=== PATIENT | male | born 1960 | race Caucasian/White ===

== ENCOUNTER 2017-02-05 09:26 | Observation (INO) ==
[2017-02-05] MEDS ORDERED: Aspirin 81 MG TAB.CHEW PO ONE (09:34)
--- NOTE | 2017-02-05 09:37 | Emergency Department Note ---
Disposition Clinical Impression: Chest pain Qualifiers: Chest pain type: unspecified Qualified Code(s): R07.9 - Chest pain, unspecified Hypertension Qualifiers: Hypertension type: essential hypertension Qualified Code(s): I10 - Essential ( primary) hypertension Disposition: Admitted As Inpatient Condition: Fair Time of Disposition: 10:55 Chest Pain HPI - General Chief Complaint: ED Chest Pain Stated Complaint: CP Time Seen by Provider: 02/05/17 09:34 Source: patient Mode of arrival: ambulatory Limitations: no limitations Vital Signs Reviewed: Yes Nursing Notes Reviewed: Yes - History of Present Illness HPI Narrative: 56-year-old with a history of stents 2 about 10 years ago in [place] who comes in with chest discomfort that he's had for about a month. States when he exerts himself the chest pain comes on and then when he rests it gets better. Patient presents now for evaluation. The patient has a history of hypertension but states he does not take his medications because it makes him feel funny. States he has some dizziness occasionally. On arrival his blood pressure is 227/ 144. Pt complaint: chest pain Onset (ago): month(s) Duration: intermittent Onset: during exertion (1) Pain Location: substernal, left chest Severity scale (1-10): 9 Quality: tightness, aching, heaviness Pain Radiation: none Improves with: rest Worsens with: exertion Associated symptoms: Denies: nausea, vomiting, syncope Treatments prior to arrival chest pain: none - Related Data Home Medications Medication Instructions Recorded Confirmed Aspirin [Ecotrin] 325 mg PO DAILY 02/05/17 02/05/17 Levothyroxine [Synthroid] 175 mcg PO DAILY 02/05/17 02/05/17 Lisinopril-HCTZ 20-12.5 [Prinzide 2 tab PO DAILY 02/05/17 02/05/17 20-12.5] Metoprolol [Lopressor] 50 mg PO DAILY 02/05/17 02/05/17 Allergies Allergy/AdvReac Type Severity Reaction Status Date / Time No Known Allergies Allergy Verified 02/05/17 09:27 All systems ED: reviewed and negative except as stated. Constitutional: Denies: fever, chills, weakness, weight change Eyes: Denies: eye pain, eye discharge, vision change ENT ED: Denies: ear pain, throat pain, dental pain, hearing loss, epistaxis, congestion, dysphagia Cardiovascular: Reports: chest pain. Denies: palpitations, dyspnea on exertion , edema, syncope Respiratory: Denies: cough, dyspnea, wheezes, hemoptysis, stridor Gastrointestinal: Denies: abdominal pain, nausea, vomiting, diarrhea, constipation, hematemesis, melena, hematochezia Genitourinary: Denies: urgency, dysuria, frequency, hematuria Musculoskeletal: Denies: back pain, neck pain, arthralgia, myalgia Integumentary: Denies: rash, abrasion, lesions Neurological: Denies: headache, weakness, numbness, paresthesias, confusion, abnormal gait, vertigo Psychiatric: Denies: anxiety, depression, suicidal thoughts, homicidal thoughts , auditory hallucinations, visual hallucinations Endocrine: Denies: fatigue Hematological/Lymphatic: Denies: easy bleeding, easy bruising Allergic/Immunologic: Denies: facial swelling, urticaria Chest Pain PMH - Past Medical History Medical history: Reports: hypertension, myocardial infarction, thyroid disease Psychiatric history: Reports: no psych history - Social History Smoking Status: Current every day smoker Alcohol use: Reports: occasionally Drug use: Reports: none Physical Exam - General Limitations: no limitations General appearance: alert, in no apparent distress - Head Head exam: atraumatic, normocephalic, normal inspection - Eye Eye exam: Present: normal appearance, PERRL, EOMI - ENT ENT exam: normal exam, normal oropharynx, mucous membranes moist - Neck Neck exam: Present: normal inspection, full ROM, trachea midline - Chest Chest inspection: Present: normal inspection, symmetric chest wall rise - Respiratory Respiratory exam: Present: normal lung sounds bilaterally - Cardiovascular Cardiovascular exam: Present: regular rate, normal rhythm, normal heart sounds - Abdominal Exam Abdominal exam: Present: soft, Non-Tender. Absent: tenderness, distention, guarding, rebound, rigidity - Extremities Exam Extremities exam: Present: normal inspection, full ROM. Absent: tenderness, pedal edema - Expanded Lower Extremity Exam Neurovascular/Tendon exam: Absent: motor deficit, sensory deficit, tendon deficit Gait: observed and normal - Back Exam Back exam: Present: normal inspection, full ROM. Absent: tenderness - Neurological Exam Neurological exam: Present: alert, oriented X3 - Psychiatric Psychiatric exam: Present: normal affect, normal mood - Skin Skin exam: Present: warm, dry, intact, normal color Course - Reevaluation(s) Reevaluation #1: 56-year-old with exertional chest discomfort and significantly elevated blood pressure. Patient has a history of previous stents. Patient does not take his medications as it makes him feel funny. Initial troponin is positive. The patient is not a STEMI based on EKG findings. Consultation obtained with cardiology and patient will be admitted for further evaluation and treatment. Time: 12:42 - Consultations Consultation #1: Discussed with Dr. Bueno, admit. Time: 10:54 Consultation #2: Discussed with Dr. Trujillo, admit. Time: 10:59 Vital Signs Temperature 98 F 02/05/17 09:27 Pulse Rate 74 02/05/17 09:27 Respiratory Rate 20 02/05/17 09:27 Blood Pressure 224/144 02/05/17 09:27 O2 Sat by Pulse Oximetry 98 02/05/17 09:27 Temperature 98 F 02/05/17 09:27 Pulse Rate 57 02/05/17 12:13 Respiratory Rate 12 02/05/17 12:13 Blood Pressure 173/130 02/05/17 12:13 O2 Sat by Pulse Oximetry 96 02/05/17 12:13 Oxygen Delivery Oxygen Delivery Nasal Cannula Chest Pain - Lab Data Lab results reviewed: Yes I reviewed the patient's lab results. Result diagrams: 02/05/17 09:55 02/05/17 09:55 Lab Results 02/05/17 02/05/17 02/05/17 Range/Units 09:55 09:55 09:55 WBC 8.5 (4.3-11.1) K/mcL RBC 5.03 (4.19-5.50) M/mcL Hgb 18.3 H (12.9-16.9) g/dL Hct 52.0 H (37.5-50.1) % MCV 103.4 H (83.0-100.0) fL MCH 36.4 H (28.0-33.3) pg MCHC 35.2 (31.6-35.5) g/dL RDW 13.9 (11.5-14.5) % Plt Count 207 (140-400) K/mcL MPV 9.6 (9.4-12.4) fL Immature Gran % 0.6 (0-4) % Seg Neutrophils % 59.9 % Lymphocytes % 27.6 % Monocytes % 9.1 % Eosinophils % 1.6 % Basophils % 1.2 % Neutrophils # 5.1 (1.6-8.9) K/mcL Lymphocytes # 2.4 (0.6-4.6) K/mcL Monocytes # 0.8 (0.0-1.3) K/mcL Eosinophils # 0.1 (0.0-0.6) K/mcL Basophils # 0.1 (0.0-0.2) K/mcL PT 11.1 (9.4-12.1) Seconds INR 1.0 APTT 29.8 (26.0-36.0) Seconds Sodium 141 (136-145) mEq/L Potassium 3.8 (3.5-4.5) mEq/L Chloride 104 (98-109) mEq/L Carbon Dioxide 27 (19-29) mEq/L BUN 10 (8-26) mg/dL Creatinine 0.91 (0.72-1.25) mg/dL Est GFR ( Amer) > 60 (> 60) Est GFR (Non-Af Amer) > 60 (> 60) BUN/Creatinine Ratio 11 (6-26) Glucose 102 H (70-99) mg/dL Calculated Osmolality 291 (280-300) Calcium 9.1 (8.6-10.8) mg/dL Troponin I (0-0.03) ng/mL TSH 3.725 (0.350-4.840) mcIU/mL 02/05/17 Range/Units 09:55 WBC (4.3-11.1) K/mcL RBC (4.19-5.50) M/mcL Hgb (12.9-16.9) g/dL Hct (37.5-50.1) % MCV (83.0-100.0) fL MCH (28.0-33.3) pg MCHC (31.6-35.5) g/dL RDW (11.5-14.5) % Plt Count (140-400) K/mcL MPV (9.4-12.4) fL Immature Gran % (0-4) % Seg Neutrophils % % Lymphocytes % % Monocytes % % Eosinophils % % Basophils % % Neutrophils # (1.6-8.9) K/mcL Lymphocytes # (0.6-4.6) K/mcL Monocytes # (0.0-1.3) K/mcL Eosinophils # (0.0-0.6) K/mcL Basophils # (0.0-0.2) K/mcL PT (9.4-12.1) Seconds INR APTT (26.0-36.0) Seconds Sodium (136-145) mEq/L Potassium (3.5-4.5) mEq/L Chloride (98-109) mEq/L Carbon Dioxide (19-29) mEq/L BUN (8-26) mg/dL Creatinine (0.72-1.25) mg/dL Est GFR ( Amer) (> 60) Est GFR (Non-Af Amer) (> 60) BUN/Creatinine Ratio (6-26) Glucose (70-99) mg/dL Calculated Osmolality (280-300) Calcium (8.6-10.8) mg/dL Troponin I 0.08 H* (0-0.03) ng/mL TSH (0.350-4.840) mcIU/mL - Radiology Data Radiology results reviewed: Yes I reviewed the patient's radiology results. Chest X-Ray 02/05/17 09:34 IMPRESSION: Bibasilar subsegmental atelectasis. Otherwise, no acute cardiopulmonary process. D/ / 02/05/2017 10:30:27 Amrik Livingston MD / shaunna Interpreting Provider: Amrik Livingston MD - EKG Data EKG attestation: Yes I reviewed and interpreted this EKG. EKG shows normal: sinus rhythm Rate: normal Rhythm: NSR T wave inversions noted in: v5, v6 When compared to previous EKG there are: previous EKG unavailable Interpretation: nonspecific ST-T wave changes Heart Score - Score History: Highly Suspicious EKG: Non Specific repolarisation Disturbance Age: 45-65 Risk Factors: Equal/Greater than 3 risk factor or history of atherosclerotic disease Troponin: 1-3x normal limit HEART Score Total: 7
[2017-02-05] MEDS ORDERED: Nitroglycerin 1 INCH/GM PACKET TP ONE (09:40)
[2017-02-05] MEDS ORDERED: Lisinopril-HCTZ 20-12.5mg TABLET PO STA (10:00)
[2017-02-05 10:13] LABS: Basophils # 0.1 K/mcL (0.0-0.2); Basophils % 1.2 %; Eosinophils # 0.1 K/mcL (0.0-0.6); Eosinophils % 1.6 %; Hemoglobin 18.3 g/dL (12.9-16.9); Immature Granulocytes % 0.6 % (0-4); Lymphocytes # 2.4 K/mcL (0.6-4.6); Lymphocytes % 27.6 %; Mean Corpuscular HGB Conc 35.2 g/dL (31.6-35.5); Mean Corpuscular Hemoglobin 36.4 pg (28.0-33.3); Mean Corpuscular Volume 103.4 fL (83.0-100.0); Mean Platelet Volume 9.6 fL (9.4-12.4); Monocytes # 0.8 K/mcL (0.0-1.3); Monocytes % 9.1 %; Neutrophils # 5.1 K/mcL (1.6-8.9); Platelet Count 207 K/mcL (140-400); Red Blood Count 5.03 M/mcL (4.19-5.50); Red Cell Distribution Width 13.9 % (11.5-14.5); Segmented Neutrophils % 59.9 %
[2017-02-05 10:17] LABS: Prothrombin Time 11.1 Seconds (9.4-12.1)
[2017-02-05 10:19] LABS: Activated Partial Thrombo Time 29.8 Seconds (26.0-36.0)
[2017-02-05 10:26] LABS: BUN/Creatinine Ratio 11 (6-26); Blood Urea Nitrogen 10 mg/dL (8-26); Calcium 9.1 mg/dL (8.6-10.8); Carbon Dioxide 27 mEq/L (19-29); Chloride 104 mEq/L (98-109); Glucose 102 mg/dL (70-99); Osmolality,Calculated 291 (280-300); Potassium 3.8 mEq/L (3.5-4.5); Sodium 141 mEq/L (136-145); eGFR For African Americans > 60 (> 60); eGFR For Non-African Americans > 60 (> 60)
[2017-02-05 10:48] LABS: Thyroid Stimulating Hormone 3.725 mcIU/mL (0.350-4.840)
[2017-02-05] MEDS ORDERED: Nitroglycerin 0.4 MG TAB.SUBL SL PRN (10:58)
--- NOTE | 2017-02-05 11:47 | Internal Med History&Physical ---
<Rodriguez Gonzales - Last Filed: 02/05/17 13:35> Date of Encounter: 02/05/17 Time of Encounter: 11:41 Assessment and Plan (1) Chest pain Current visit: Yes Status: Acute Chest pain free at rest, hypertensive urgency continues; CP decreasing as BP decreases. H/O MS with stents, on ASA, Statin BB and GAGE at home, Non- compliant Consult cardiology-ED physician spoke with Dr. Castro; will see patient Restart BB, GAGE and ASA; refused to take statin serial troponins- echocardiogram cardiac monitoring, tele, O2 prn for SOB SL nitro PRN CBC, CMP, MG in the morning Qualifiers: Chest pain type: unspecified Qualified Code(s): R07.9 - Chest pain, unspecified (2) Hypertension Current visit: Yes Status: Acute Remains hypertensive. Non complaint with antihypertensive regimen. Restart BB , GAGE/HCTZ, and ASA. Qualifiers: Hypertension type: essential hypertension Qualified Code(s): I10 - Essential (primary) hypertension (3) DVT prophylaxis Current visit: Yes Status: Acute heparin 5000u SC Q12 hrs Internal Medicine - H&P: HPI Chief complaint: chest pain Admitted From: Home Plans for Post Hospital Care: Home History of present illness: Mr. Villarreal is a 56 year old male with a PMH of uncontrolled HTN, hypothyroidism , HLD, and MS with stents x2. He presents to [facility] today with a 1-month H/O sharp exertional CP with radiation to BL arms, shoulders, and mid-back. He notes CP worsens with exertion, improves with rest, and that he becomes dyspneic. Denies any fevers, chills, diaphorsis, weight gain, swelling, or cough. Elevated trop 0.08, HTN urgency with BP of 227/144 on arrival. He is non-compliant with his antihypertensive regimen. Past Med Surg Social Fam HX - Past Medical History Medical history: hypertension, myocardial infarction, thyroid disease Psychiatric history: no psych history - Social History Smoking Status: Current every day smoker Smokeless Tobacco Status: No Alcohol use: occasionally Drug use: none - Family History Mother Race: Family Member Ethnicity: Non- Hx Family Cardiac Disorders: Yes (MS) Hx Family Endocrine Disorder: Yes (DM) Father Race: Family Member Ethnicity: Non- Hx Family Cardiac Disorders: Yes (MS) Sister Family Member Ethnicity: Non- Hx Family Endocrine Disorder: Yes (DM) Internal Medicine - H&P: Meds Aspirin [Ecotrin] 325 mg PO DAILY 02/05/17 [History] Levothyroxine [Synthroid] 175 mcg PO DAILY 02/05/17 [History] Lisinopril-HCTZ 20-12.5 [Prinzide 20-12.5] 2 tab PO DAILY 02/05/17 [History] Metoprolol [Lopressor] 50 mg PO DAILY 02/05/17 [History] 3 Allergy/AdvReac Type Severity Reaction Status Date / Time No Known Allergies Allergy Verified 02/05/17 09:27 All Systems PM: A 10-system review of systems was performed and is negative for pertinent findings except as documented above in the HPI. - Constitutional Constitutional: no chills, no fever(s), no night sweats - EENT Nose, mouth and throat: no dysphagia, no nasal discharge, no neck pain, no sore throat - Cardiovascular Cardiovascular ROS IM: as per HPI, chest pain, dyspnea on exertion, no claudication, no diaphoresis, no dyspnea, no edema, no irregular heart rhythm, no lightheadedness, no orthopnea, no palpitations, no syncope - Respiratory Respiratory: dyspnea on exertion, no cough, no dyspnea, no wheezing, no pain on inspiration, no chest congestion, no excessive phlegm production, no change in phlegm color, no pain with cough - Gastrointestinal Gastrointestinal: no abdominal pain, no diarrhea, no hematemesis, no hematochezia, no melena, no nausea, no vomiting - Genitourinary Genitourinary ROS male: no dysuria - Musculoskeletal Musculoskeletal ROS IM: no numbness, no tingling - Integumentary Integumentary IM: no rash, no unusual bruising - Neurological Neurological ROS: no confusion, no convulsions, no focal weakness, no numbness, no tingling, no tremor(s) - Hematologic/Lymphatic Hematologic/Lymphatic: no easy bruising - Constitutional Vitals: Temp Pulse Resp BP Pulse Ox 98 F 60 15 201/131 97 02/05/17 09:27 02/05/17 11:32 02/05/17 11:32 02/05/17 11:32 02/05/17 11:32 General appearance: Present: cooperative, A&O X 3, no acute distress, answers questions appropriately - Head Head exam: Present: atraumatic, normocephalic - Eye Eye exam: Present: PERRL, conjuntiva pink, sclera anicteric Pupils: Present: PERRL - Neck Neck exam general surgery: Present: supple, trachea midline. Absent: lymphadenopathy - Respiratory Respiratory exam: Present: CTAB. Absent: accessory muscle use, rales, rhonchi, wheezes - Cardiovascular Cardiovascular exam: Present: RRR, +S1, +S2. Absent: diastolic murmur, gallop, rubs, systolic murmur - GI/Abdominal GI/Abdominal exam: Present: normal bowel sounds, soft, no peritoneal signs. Absent: distended, tenderness - Extremities Exam Extremities exam: Present: warm, radial pulses palpable and symmetrical. Absent : calf tenderness, cyanotic, pedal edema - Neurological Exam Neurological exam: Present: CN II-XII intact, oriented X3, no focal deficits. Absent: pronater drift, facial droop, speech deficit - Skin Skin exam: Present: dry, intact Internal Med - H&P Results - Labs CBC & Chem 7: 02/05/17 09:55 02/05/17 09:55 Labs: Short CBC 02/05/17 Range/Units 09:55 WBC 8.5 (4.3-11.1) K/mcL Hgb 18.3 H (12.9-16.9) g/dL Hct 52.0 H (37.5-50.1) % Plt Count 207 (140-400) K/mcL Neutrophils # 5.1 (1.6-8.9) K/mcL BMP 02/05/17 09:55 Sodium 141 Potassium 3.8 Chloride 104 Carbon Dioxide 27 BUN 10 Creatinine 0.91 Glucose 102 H Calcium 9.1 Cardiac Enzymes 02/05/17 Range/Units 09:55 Troponin I 0.08 H* (0-0.03) ng/mL - EKG Data -: EKG Interpreted by Myself EKG shows normal: sinus rhythm - EKG Data Prior EKG available for review: no Interpretation IM: normal EKG - Impressions ITS Impressions Chest X-Ray 02/05/17 09:34 IMPRESSION: Bibasilar subsegmental atelectasis. Otherwise, no acute cardiopulmonary process. D/ / 02/05/2017 10:30:27 Amrik Livingston MD / shaunna Interpreting Provider: Amrik Livingston MD - Diagnostic Studies Chest x-ray Status: image reviewed by me Additional comments: NO ACUTE PULMONARY PROCESS <Vicky Trujillo - Last Filed: 02/06/17 08:58> Date of Encounter: 02/06/17 Internal Medicine - H&P: HPI History of present illness: Mr. Villarreal is a 56 year old male All Systems PM: A 10-system review of systems was performed and is negative for pertinent findings except as documented above in the HPI. - Constitutional Vitals: Temp Pulse Resp BP Pulse Ox 97.4 F L 62 16 198/128 97 02/06/17 07:02 02/06/17 07:02 02/06/17 07:02 02/06/17 07:02 02/06/17 07:02 Internal Med - H&P Results - Labs CBC & Chem 7: 02/06/17 02:48 02/06/17 02:48 Labs: Short CBC 02/06/17 Range/Units 02:48 WBC 7.6 (4.3-11.1) K/mcL Hgb 17.7 H (12.9-16.9) g/dL Hct 50.5 H (37.5-50.1) % Plt Count 180 (140-400) K/mcL Neutrophils # 4.5 (1.6-8.9) K/mcL BMP 02/06/17 02:48 Sodium 137 Potassium 3.6 Chloride 102 Carbon Dioxide 24 BUN 10 Creatinine 1.02 Glucose 113 H Calcium 9.0 Cardiac Enzymes 02/05/17 02/05/17 Range/Units 16:21 20:54 Troponin I 0.07 H* 0.07 H* (0-0.03) ng/mL Liver Function 02/06/17 Range/Units 02:48 Total Bilirubin 0.6 (0.2-1.2) mg/dL AST 37 H (5-34) Units/L ALT 47 (0-55) Units/L Alkaline Phosphatase 71 (38-126) Units/L Albumin 3.1 L (3.5-5.0) g/dL - Attending Attestation late entry , Patient seen on02/05@1999 I have personally performed a face to face evaluation on this patient. I have reviewed and agree with the care plan. History and Exam by me shows: Patient stated that Satish has recurrent episodes of chest discomfort shortness of breath with mild exertion which has been getting worse lately. Patient denies any chest pain now. Patient denies any cough denies any wheezing. Patient denies any fever or chills Vital sign stable except blood pressure is fluctuating systolic blood pressure up to 200 now better Chest markedly decreased breathing sound bilateral Heart S1-S2 normal regular rate abdomen soft nontender nondistended no organomegaly extremity no edema A/P 1. Hypertensive urgency 2. Chest pain 3. Angina With his significant risk factor and typical chest pain, mild elevation of troponin. Cardiology was consulted may need cardiac catheterization. Titrate medication to control blood pressure. Cardiac echo done awaiting results
[2017-02-05] MEDS ORDERED: Naloxone 0.4 MG/ML INJ IVP PRN (12:18)
--- NOTE | 2017-02-05 15:40 | Cardiology Consult Note ---
Date of Encounter: 02/05/17 Time of Encounter: 15:38 Assessment and Plan (1) Chest pain Current Visit: Yes Status: Acute Typical chest pain symptoms. H/o CAD s/p CA 10 years ago. Mild troponin elevation in the setting of hypertensive urgency is non- diagnostic at this point. H/o CAD not on good medical therapy. Non-compliant with meds due to side effect. C/o leg pain with statin therapy. Recommend restarting medical therapy and better blood pressure control. Agree with asa and bb. Lisinopril started. Smoking and ETOH cessation. Check TTE. Trend troponin. Further recommendation to follow. Qualifiers: Chest pain type: unspecified Qualified Code(s): R07.9 - Chest pain, unspecified (2) Hypertensive urgency Current Visit: Yes Status: Acute B/p 224/144. Improved after NTG, lisinopril, and metoprolol. medication compliance discussed. (3) Elevated troponin Current Visit: Yes Status: Acute Troponin 0.08 in the setting of hypertensive urgency. Continue to trend. See plan above. Discussion w patient/family: The assessment and plan as outlined above was discussed with the patient and/or family members who expressed understanding and agreement. All questions were answered. Thank you for involving us in the care of your patient. Please call with any questions. History of Present Illness Consult date: 02/05/17 Requesting physician: Ji Peter Consult reason: Elevated troponin Chief complaint: Chest pain History of present illness: Mr. Villarreal is a 56 year old male with a history of CAD s/p CA and PCI 10 years ago at [facility], HTN, noncompliance, tobacco and ETOH use. 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 The pain was midsternal and non radiating. Over the last week he c/o increasing intermittent chest pain radiating down both of his arms and to his back. The pain starts with minimal activity and improves with rest. He reports stopping all of his medications except for asa and synthroid. He stopped his anti- hypertensive medication due to fatigue. He reports having uncontrolled hypertension for years due to inability to tolerate b/p medication. He unfortunately continues to smoke 1-1/2 packs a day. He drinks 6 shots of vodka at night. Cardiology consulted for elevated troponin. On my exam he is chest pain free after taking SL NTG and NTG paste. Past Med Surg Social Fam HX - Past Medical History Medical history: coronary artery disease, hypertension, myocardial infarction, thyroid disease Psychiatric history: no psych history - Social History Smoking Status: Current every day smoker Smokeless Tobacco Status: No Alcohol use: occasionally Drug use: none - Family History Mother Race: Family Member Ethnicity: Non- Hx Family Cardiac Disorders: Yes (CA) Hx Family Endocrine Disorder: Yes (DM) Father Race: Family Member Ethnicity: Non- Hx Family Cardiac Disorders: Yes (CA) Sister Family Member Ethnicity: Non- Hx Family Endocrine Disorder: Yes (DM) Medications and Allergies Aspirin [Ecotrin] 325 mg PO DAILY 02/05/17 [History] Levothyroxine [Synthroid] 175 mcg PO DAILY 02/05/17 [History] Lisinopril-HCTZ 20-12.5 [Prinzide 20-12.5] 2 tab PO DAILY 02/05/17 [History] Metoprolol [Lopressor] 50 mg PO DAILY 02/05/17 [History] 3 Allergy/AdvReac Type Severity Reaction Status Date / Time No Known Allergies Allergy Verified 02/05/17 09:27 All Systems Review: A 10-system review of systems was performed and is negative for pertinent findings except as documented above in the HPI. Physical Examination Vital Signs, Last 4 Hours Pulse Resp BP Pulse Ox 02/05/17 14:34 58 13 162/119 95 02/05/17 13:19 153/104 02/05/17 12:13 57 12 173/130 96 General: Conversant, No Apparent Distress HEENT: Atraumatic, Normocephaly, Mucus Membranes Moist, Other (eyes are bloodshot) Neck: No JVD, Normal carotid pulses Cardiac: Reg Rate and Rhythm, Normal S1 and S2, No Murmur Lungs: Normal Breath Sounds, No Wheeze, Rales, Rhonchi Neuro: Alert and responsive, No focal deficits noted Abdomen: Soft, Non-Tender Skin: No rashes noted on visualized skin Musculoskeletal: No Chest Wall Tenderness Extremities: No Clubbing, No Cyanosis, No Edema, Normal Pulses Results 02/05/17 09:55 02/05/17 09:55 - Imaging and Cardiology Echo: pending - EKG Interpretation EKG results cardiology: personally reviewed Consult Discharge Plan - Plan Referrals: Cliff Junior MD [Primary Care Provider] -
[2017-02-05] MEDS: *HR* Heparin 5,000 UNIT/ML VIAL SQ SCH (18:06)
[2017-02-05] MEDS ORDERED: Ibuprofen 400 MG TABLET PO PRN (20:35)
[2017-02-06 03:17] LABS: Basophils # 0.1 K/mcL (0.0-0.2); Basophils % 0.9 %; Eosinophils # 0.2 K/mcL (0.0-0.6); Eosinophils % 2.6 %; Hematocrit 50.5 % (37.5-50.1); Hemoglobin 17.7 g/dL (12.9-16.9); Immature Granulocytes % 0.3 % (0-4); Lymphocytes # 2.1 K/mcL (0.6-4.6); Lymphocytes % 27.1 %; Mean Corpuscular Hemoglobin 35.8 pg (28.0-33.3); Mean Corpuscular Volume 102.2 fL (83.0-100.0); Mean Platelet Volume 9.9 fL (9.4-12.4); Monocytes # 0.8 K/mcL (0.0-1.3); Monocytes % 9.9 %; Neutrophils # 4.5 K/mcL (1.6-8.9); Platelet Count 180 K/mcL (140-400); Red Blood Count 4.94 M/mcL (4.19-5.50); Red Cell Distribution Width 13.8 % (11.5-14.5); Segmented Neutrophils % 59.2 %
[2017-02-06 03:32] LABS: Alanine Aminotransferase 47 Units/L (0-55); Albumin 3.1 g/dL (3.5-5.0); Alkaline Phosphatase 71 Units/L (38-126); Aspartate Amino Transferase 37 Units/L (5-34); BUN/Creatinine Ratio 10 (6-26); Bilirubin,Total 0.6 mg/dL (0.2-1.2); Blood Urea Nitrogen 10 mg/dL (8-26); Carbon Dioxide 24 mEq/L (19-29); Chloride 102 mEq/L (98-109); Glucose 113 mg/dL (70-99); Magnesium 1.8 mg/dL (1.6-2.6); Osmolality,Calculated 284 (280-300); Potassium 3.6 mEq/L (3.5-4.5); Sodium 137 mEq/L (136-145); Total Protein 6.7 g/dL (6.0-8.3); eGFR For African Americans > 60 (> 60); eGFR For Non-African Americans > 60 (> 60)
[2017-02-06 03:33] LABS: Albumin/Globulin Ratio 0.9 (1.1-2.2); Globulin 3.6 g/dL (2.4-3.5)
[2017-02-06] MEDS: *HR* Heparin 5,000 UNIT/ML VIAL SQ SCH ×2 (06:03→21:04)
[2017-02-06] MEDS: Lisinopril-HCTZ 20-12.5mg TABLET PO SCH (08:41)
[2017-02-06] MEDS ORDERED: Aspirin Enteric Coated 325 MG Tablet PO SCH (09:00)
--- NOTE | 2017-02-06 09:51 | Cardiology Progress Note ---
Date of Encounter: 02/06/17 Time of Encounter: 09:49 Assessment and Plan (1) Chest pain Current Visit: Yes Status: Acute Typical chest pain symptoms on presentation. Pt denies recurrent chest pain overnight or this AM. H/o CAD s/p NC 10 years ago. Mild troponin elevation in the setting of hypertensive urgency is non- diagnostic at this point. H/o CAD not on good medical therapy. Non-compliant with meds due to side effect. C/o leg pain with statin therapy. Recommend restarting medical therapy and better blood pressure control. Agree with asa and bb. Lisinopril started. Smoking and ETOH cessation. Echo resulted--LVEF 60%, Mild left ventricular diastolic dysfunction, Normal right ventricular structure and function, No significant valvular dysfunction No pulmonary hypertension. Admits to poor diet--fast food daily. Given his typical symptoms on presentation and poor medical compliance/lifestyle, recommend [facility]. R/B/A discussed. Pt agrees to proceed. [facility] today. Qualifiers: Chest pain type: unspecified Qualified Code(s): R07.9 - Chest pain, unspecified (2) Hypertensive urgency Current Visit: Yes Status: Acute B/p as high as 224/144. Improved after NTG, lisinopril, and metoprolol, but this AM BP elevated to 198/128. Per pt, was 120s systolic after meds, but this BP not yet recorded. Lopressor is only ordered as 50mg daily. Dosing should be BID, but 12 hr tele AVG HR 56, lowest HR 42 during nocturnal hours. Will discuss with Dr. Bueno regarding BB dosing. Continue to monitor and adjust antihypertensives as necessary. (3) Elevated troponin Current Visit: Yes Status: Acute Troponin 0.08, 0.07, 0.07 in the setting of hypertensive urgency. Nondiagnostic for ACS. Cardiac rehab not warranted at this time, but proceeding with [facility] as above. Discussion w patient/family: The assessment and plan as outlined above was discussed with the patient and/or family members who expressed understanding and agreement. All questions were answered. Thank you for involving us in the care of your patient. Please call with any questions. I will discuss all the above with Dr. Bueno and make changes as necessary. Subjective Principal diagnosis: Chest pain, hypertensive urgency Interval history: Echo pending. BP still elevated this AM--198/128. Pt denies any chest pain overnight or this AM. Denies dyspnea. No cardiac complaints currently. Echo resulted--LVEF 60%, Mild left ventricular diastolic dysfunction, Normal right ventricular structure and function, No significant valvular dysfunction, No pulmonary hypertension. Objective Vital Signs, Last 4 Hours Temp Pulse Resp BP Pulse Ox 02/06/17 07:02 97.4 F L 62 16 198/128 97 Vital Signs Temp Pulse Resp BP Pulse Ox 02/06/17 07:02 97.4 F L 62 16 198/128 97 02/06/17 02:00 98.0 F 63 17 126/87 95 02/05/17 22:58 98.3 F 65 18 134/86 95 02/05/17 18:35 98.6 F 72 17 170/109 93 02/05/17 15:40 98.1 F 64 20 170/117 93 02/05/17 14:34 58 13 162/119 95 02/05/17 13:19 153/104 02/05/17 12:13 57 12 173/130 96 02/05/17 11:32 60 15 201/131 97 02/05/17 11:02 63 11 187/123 97 02/05/17 10:32 215/129 02/05/17 10:04 67 14 199/127 98 Intake and Output 02/05/17 02/06/17 02/06/17 23:59 07:59 15:59 Other: Weight 90.764 kg Patient Weight 02/06/17 23:59 Weight 90.764 kg General: Conversant, No Apparent Distress HEENT: Atraumatic, Normocephaly, Mucus Membranes Moist Neck: No JVD, Normal carotid pulses Cardiac: Reg Rate and Rhythm, Normal S1 and S2, No Murmur Lungs: Normal Breath Sounds, No Wheeze, Rales, Rhonchi Neuro: Alert and responsive, No focal deficits noted Abdomen: Soft, Non-Tender Skin: No rashes noted on visualized skin Musculoskeletal: No Chest Wall Tenderness Extremities: No Clubbing, No Cyanosis, No Edema, Normal Pulses Results 02/06/17 02:48 02/06/17 02:48 Lab Results 02/05/17 02/05/17 02/06/17 16:21 20:54 02:48 WBC 7.6 Hgb 17.7 H Hct 50.5 H Plt Count 180 Sodium Potassium Chloride Carbon Dioxide BUN Creatinine Glucose Calcium Magnesium Total Bilirubin AST ALT Alkaline Phosphatase Troponin I 0.07 H* 0.07 H* 02/06/17 02:48 WBC Hgb Hct Plt Count Sodium 137 Potassium 3.6 Chloride 102 Carbon Dioxide 24 BUN 10 Creatinine 1.02 Glucose 113 H Calcium 9.0 Magnesium 1.8 Total Bilirubin 0.6 AST 37 H ALT 47 Alkaline Phosphatase 71 Troponin I Short CBC 02/06/17 02/05/17 Range/Units 02:48 09:55 WBC 7.6 8.5 (4.3-11.1) K/mcL Hgb 17.7 H 18.3 H (12.9-16.9) g/dL Hct 50.5 H 52.0 H (37.5-50.1) % Plt Count 180 207 (140-400) K/mcL Neutrophils # 4.5 5.1 (1.6-8.9) K/mcL BMP 02/06/17 02/05/17 Range/Units 02:48 09:55 Sodium 137 141 (136-145) mEq/L Potassium 3.6 3.8 (3.5-4.5) mEq/L Chloride 102 104 (98-109) mEq/L Carbon Dioxide 24 27 (19-29) mEq/L BUN 10 10 (8-26) mg/dL Creatinine 1.02 0.91 (0.72-1.25) mg/dL Glucose 113 H 102 H (70-99) mg/dL Calcium 9.0 9.1 (8.6-10.8) mg/dL Cardiac Enzymes 02/05/17 02/05/17 02/05/17 Range/Units 20:54 16:21 09:55 Troponin I 0.07 H* 0.07 H* 0.08 H* (0-0.03) ng/mL Liver Function 02/06/17 Range/Units 02:48 Total Bilirubin 0.6 (0.2-1.2) mg/dL AST 37 H (5-34) Units/L ALT 47 (0-55) Units/L Alkaline Phosphatase 71 (38-126) Units/L Albumin 3.1 L (3.5-5.0) g/dL Impressions Chest X-Ray 02/05/17 09:34 IMPRESSION: Bibasilar subsegmental atelectasis. Otherwise, no acute cardiopulmonary process. D/ / 02/05/2017 10:30:27 Amrik Livingston MD / shaunna Interpreting Provider: Amrik Livingston MD Active Medications Aspirin (Aspirin Ec) 325 mg PO DAILY [facility] Stop: 08/08/17 09:01 Last Admin: 02/06/17 08:42 Dose: 325 mg Lisinopril/HCTZ (Prinzide 20-12.5) 2 each PO DAILY [facility] Stop: 08/08/17 09:01 Last Admin: 02/06/17 08:41 Dose: 2 each Heparin Sodium (Porcine) (Heparin) 5,000 unit SQ Q12HR [facility] Stop: 08/07/17 18:01 Last Admin: 02/06/17 06:03 Dose: 5,000 unit Hydralazine HCl (Hydralazine) 5 mg IVP Q6HR PRN PRN Reason: Hypertension Stop: 08/07/17 17:51 Last Admin: 02/06/17 07:26 Dose: 5 mg Ibuprofen (Motrin) 400 mg PO Q8HR PRN PRN Reason: FEVER/PAIN Stop: 08/07/17 20:36 Last Admin: 02/05/17 20:51 Dose: 400 mg Levothyroxine Sodium (Synthroid) 175 mcg PO 0630 [facility] Stop: 08/08/17 06:31 Last Admin: 02/06/17 06:03 Dose: 175 mcg Metoprolol Tartrate (Lopressor) 50 mg PO DAILY [facility] Stop: 08/08/17 09:01 Last Admin: 02/06/17 08:42 Dose: 50 mg Naloxone HCl (Narcan) 0.4 mg IVP Q2MIN PRN PRN Reason: Opioid Reversal Stop: 08/07/17 12:19 Nitroglycerin (Nitroglycerin) 0.4 mg SL Q5MIN PRN PRN Reason: Chest Pain Stop: 08/07/17 10:59 - Imaging and Cardiology Echo: report reviewed - EKG Interpretation EKG results cardiology: other (12 hr tele AVG HR 56, SR, no significant pauses or arrhythmias. Lowest HR 42 during nocturnal hours.) Consult Discharge Plan - Plan Referrals: Cliff Junior MD [Primary Care Provider] -
[2017-02-06] MEDS ORDERED: *HR* LORazepam 2 MG/ML VIAL IVP ONE (12:26)
[2017-02-06] MEDS ORDERED: 0.9 % Sodium Chloride 1,000 ML ONE ×2 (12:34→13:10)
[2017-02-06] MEDS ORDERED: *HR* Heparin 10,000 UNIT/10 ML VIAL ONE (12:34)
[2017-02-06] MEDS ORDERED: Heparin 1,000 UNITS/500 mL NS 500 ML ONE (12:34)
[2017-02-06] MEDS ORDERED: Nitroglycerin 1,000 MCG/10 ML VIAL IV ONE (12:35)
--- NOTE | 2017-02-06 12:56 | Pre-Sedation Evaluation ---
Pre-sedation evaluation - Pre-sedation checklist Date of procedure: 02/06/17 Recent Vitals: Last Vital Signs Temp 98.2 F 02/06/17 11:26 Pulse 56 02/06/17 11:26 Resp 16 02/06/17 11:26 BP 164/102 02/06/17 11:26 Pulse Ox 97 02/06/17 11:26 H&P (including ROS) documented in medical record: Yes Dietary Status: NPO after Midnight Possible difficult airway: No ASA Classification *see protocol: CLASS II-Mild systemic disease Plan of Care: Pt appropriate candidate for procedure/moderate/conscious sedation
[2017-02-06] MEDS ORDERED: *HR* Midazolam HCl 2 MG/2 ML VIAL ONE (13:21)
[2017-02-06] MEDS ORDERED: Nitroglycerin Spray 4.9 GM BOTTLE ONE (13:32)
[2017-02-06] MEDS ORDERED: Tirofiban 12.5 MG/250ML 12.5 MG/250 ML BAG ONE (13:42)
--- NOTE | 2017-02-06 13:53 | Internal Med Progress Note ---
Date of Encounter: 02/06/17 Time of Encounter: 11:45 - Assessment and plan (1) Chest pain Current Visit: Yes Status: Acute Qualifiers: Chest pain type: unspecified Qualified Code(s): R07.9 - Chest pain, unspecified (2) Hypertensive urgency Current Visit: Yes Status: Acute Assessment and plan: Blood pressure checked manually was 160/80. Alcohol withdrawal could be a contributing factor for elevated blood pressure added 1 dose of Ativan. Appreciate cardiology input for adjusting blood pressure medication adding Norvasc and beta anahi (3) Elevated troponin Current Visit: Yes Status: Acute Assessment and plan: With patient history of angina and typical symptom of chest pain and his significant risk factor appreciate cardiology input for proceeding with cardiac catheter. Discussed with patient and family about procedure. (4) Alcohol abuse Current Visit: Yes Status: Acute Assessment and plan: Add thiamine and folic acid monitor for any alcohol withdrawal symptom (5) Tobacco abuse Current Visit: Yes Status: Acute Assessment and plan: Counseling on tobacco cessation more than 10 minutes spent counseling on care home complication. Counseling on different methods of treatment, nicotine patch - Time Spent With Patient 25 - 35 minutes - Subjective Interval history: Patient stated that he has history of recurrent episodes of chest pain shortness of breath diaphoresis with mild exertion. He denies any chest pain now. Patient admitted that he is drinking energy drink +4 vodka in addition to coffee daily - Constitutional Vitals: Temp Pulse Resp BP Pulse Ox 98.2 F 56 16 164/102 97 02/06/17 11:26 02/06/17 11:26 02/06/17 11:26 02/06/17 11:26 02/06/17 11:26 General appearance: Present: cooperative, A&O X 3, no acute distress, answers questions appropriately - Head Head exam: Present: atraumatic, normocephalic - Neck Neck exam general surgery: Present: supple, trachea midline. Absent: lymphadenopathy - Respiratory Respiratory exam: Present: CTAB. Absent: accessory muscle use, rales, rhonchi, wheezes - Cardiovascular Cardiovascular exam: Present: RRR, +S1, +S2. Absent: diastolic murmur, gallop, rubs, systolic murmur - GI/Abdominal GI/Abdominal exam: Present: normal bowel sounds, soft, no peritoneal signs. Absent: distended, tenderness - Extremities Exam Extremities exam: Present: warm, radial pulses palpable and symmetrical. Absent : calf tenderness, cyanotic, pedal edema - Skin Skin exam: Present: dry, intact Internal Medicine: Result - Labs CBC & Chem 7: 02/06/17 02:48 02/06/17 02:48 Labs: Short CBC 02/06/17 Range/Units 02:48 WBC 7.6 (4.3-11.1) K/mcL Hgb 17.7 H (12.9-16.9) g/dL Hct 50.5 H (37.5-50.1) % Plt Count 180 (140-400) K/mcL Neutrophils # 4.5 (1.6-8.9) K/mcL BMP 02/06/17 02:48 Sodium 137 Potassium 3.6 Chloride 102 Carbon Dioxide 24 BUN 10 Creatinine 1.02 Glucose 113 H Calcium 9.0 Cardiac Enzymes 02/05/17 02/05/17 Range/Units 16:21 20:54 Troponin I 0.07 H* 0.07 H* (0-0.03) ng/mL Liver Function 02/06/17 Range/Units 02:48 Total Bilirubin 0.6 (0.2-1.2) mg/dL AST 37 H (5-34) Units/L ALT 47 (0-55) Units/L Alkaline Phosphatase 71 (38-126) Units/L Albumin 3.1 L (3.5-5.0) g/dL - ABG Interpretation ABG results: PT/INR, D-dimer PT 11.1 Seconds (9.4-12.1) 02/05/17 09:55 Consult Discharge Plan - Plan Referrals: Cliff Junior MD [Primary Care Provider] -
[2017-02-06] MEDS ORDERED: *HR* Ticagrelor 90 MG TABLET ONE (14:38)
--- NOTE | 2017-02-06 15:05 | Invasive Diagnostic Lab Proc ---
Name: Jatin Villarreal Date of Study: 02/06/2017 Date: 1960 Ht: 66.1in Medical Record#: [id number] Age: 56 Wt: 199.96lb Gender: Male BSA: 2. Order #: [id number] BMI: 32.14 Physicians Procedure Physician: Leslee Dumont MD Referring MD: Referring MD: Staff Name Position Time In Nolan Cely RN Monitor 01:14 PM Abdirizak Campo RT (R) Scrub 01:14 PM Sonny Conway RN Plating Operator 01:14 PM Indications Indication Non-Stemi Unstable Angina hypertension Procedures Performed Procedure L HRT ARTERY/VENTRICLE ANGIO INS CATH ANDRÉS ART 1ST BILAT PRQ CARD MIREYA STENT W/ANGIO 1 VSL PRQ CARD MIREYA STENT W/ANGIO 1 VSL Pre-Procedure Checklist Informed consent is complete signed and on chart. H&P is on chart. ID band is on and ID verified with patient. Patient NPO for procedure The procedure was described for the patient and questions were answered. Blood Pressure: 198/128 ECG is on chart. Rhythm: NSR Plan of Care Patient will tolerate the procedure without complications. Adequate level of comfort will be maintained. Hemodynamics will remain stable Patient will recover from procedure without complications. Respiratory function will be maintained. Cardiac rhythm will remain stable. Patient temperature will be maintained. Patient and/or family have verbalized understanding of the procedure. Patient Education Chief Complaint/Reason for Test: Cardiac Cath Developmental Category: Adult (18-64 years) Developmentally Appropriate for Age: Yes Learning Barriers: None Education Needs: Procedure Education Method: Verbal Information Taught: Cardiac Cath Educational Evaluation: Able to repeat information Intravenous Access Time IV Size Location DC'd Fluid/Drip Rate Units RN 01:12 PM 20g 1 04/11" Patent On Arrival Rt Antecubital 0.9NaCl 25 ml/hr Sonny Conway RN Allergies No Known Allergies Vital Signs Time BP (mmHg) HR (bpm) O2 Sat. RR (bpm) LOC 12:26 PM 198 / 128 62 97 % 16 5 = Fully awake and oriented or at pre-proc level 01:27 PM / % 5 = Fully awake and oriented or at pre-proc level 01:27 PM / % 5 = Fully awake and oriented or at pre-proc level 01:42 PM / % 5 = Fully awake and oriented or at pre-proc level 01:58 PM / % 5 = Fully awake and oriented or at pre-proc level 02:13 PM / % 5 = Fully awake and oriented or at pre-proc level 02:28 PM / % 5 = Fully awake and oriented or at pre-proc level 02:07 PM 154 / 105 62 96 % 20 02:12 PM 156 / 109 64 95 % 22 02:17 PM 169 / 114 62 96 % 17 02:22 PM 169 / 113 59 96 % 15 02:27 PM 166 / 106 64 97 % 18 02:32 PM 150 / 113 57 94 % 12 02:38 PM 153 / 103 62 96 % 18 01:27 PM 186 / 120 60 97 % 20 01:31 PM 199 / 120 62 98 % 20 01:32 PM 167 / 127 64 97 % 26 01:37 PM 160 / 100 70 94 % 17 01:42 PM 119 / 90 73 96 % 20 01:47 PM 145 / 96 67 95 % 28 01:52 PM 142 / 90 64 96 % 19 01:57 PM 152 / 90 64 96 % 25 02:02 PM 148 / 96 63 96 % 12 Procedural Medications Time Medication Dose Units Method Given By 01:27 PM Oxygen 2 L/min nasal cannula Sonny Conway RN 01:27 PM Versed 1 mg Intravenous Sonny Conway RN 01:30 PM Lidocaine 2% 10 ml Subcutaneous Leslee Dumont MD 01:31 PM Versed 0.5 mg Intravenous Sonny Conway RN 01:32 PM Nitroglycerin 0.04 mg Sublingual Sonny Conway RN 01:45 PM Heparin 4000 units Intravenous Sonny Conway RN 01:45 PM Aggrastat Bolus: 46 ml Intravenous Sonny Conway RN 01:46 PM Aggrastat 5mg/100ml 16.5 ml/hr Intravenous Sonny Conway RN 02:36 PM Brilinta 180 mg Orally Sonny Conway RN ASA Classification: CLASS II- Mild systemic disease (i.e. well-controlled diabetes, hypertension, asthma, cigarette smoking) Tosin Score Preprocedure Postprocedure Activity 2- Moves 4 extremities sustained head lift Activity 2- Moves 4 extremities sustained head lift Circulation 2- SBP +/= 20 points of pre-anesthetic level Circulation 2- SBP +/= 20 points of pre-anesthetic level Consciousness 2- Awake and alert oriented x 3 Consciousness 2- Awake and alert oriented x 3 O2 Saturation 2- Able to maintain O2 satruation of 92% on room air O2 Saturation 2- Able to maintain O2 satruation of 92% on room air Respiratory 2- Able to deep breathe and cough well Respiratory 2- Able to deep breathe and cough well Total Score 10 Total Score 10 Contrast Agent: Isovue Diagnostic Contrast: 250 ml Total Contrast: 250 ml Fluoro Dose: 1877 mGy Activated Clotting Time Time Seconds to Clot 02:20 PM 287 Procedure Log Time Note Enter By 01:06 PM CathStat 01:14 PM [facility] arrived to medical lab specialist 2 at 13:[facility] Cely Francisco RN Position: Monitor Time in: :14 allgigi :14 PM Abdirizak Campo RT (R) Position: Scrub Time in: :14 [facility]:14 PM Sonny Conway RN Position: Plating Operator [facility]: 13:14 [facility] Patient charges- Angio tray pack, Navilyst 3mm J, Pulse Oximetry and ACIST tubing and transducer [facility] PM Case Delayed No allan :14 PM Physician arrived 13:14 [facility] PM Meet and greet completed :15 PM Sign in performed according to hospital policy. :15 PM Procedure start 13:15 : PM Hair removed from procedure site in procedure lab using clippers. Bilateral groin prepped with Chloraprep by Cely Francisco RN, safety strap applied then patient was draped. Skin intact. PM Vitals capture started with the following parameters, Patient=Adult, Interval=5 min, Initial Xtbadsbm=945 mmHg, Deflation Rate=5 mmHg, Cuff placed on Right Arm : PM Recorded ECG: HR=59 Condition=Condition 1 : PM Time: 13:27 Oxygen on at 2 L/min per nasal cannula by Sonny Conway RN [facility] PM Time: 13:27 Versed 1 mg Intravenous Given by [facility] RN [facility] PM Time: 13:27 Patient comfortable and pain free: Yes PM Time: 13:LOC: 5 = Fully awake and oriented or at pre-proc level jc:27 PM Clinical Presentation: Non-STEMI jcallan :27 PM HR=60 bpm, STNS=184/120 mmhg, SpO2=97.0 %, Resp=20 B/min, Comment=NSR 01:30 PM NIBP STAT measurement started. 01:30 PM ASA Class CLASS II- Mild systemic disease (i.e. well-controlled diabetes, hypertension, asthma, cigarette smoking) jcall:30 PM Time out performed according to hospital policy : PM Time: 13:30 10 ml Lidocaine 2% to right groin Subcutaneous Given by Leslee Dumont MD gigi :31 PM HR=62 bpm, NRGE=882/120 mmhg, SpO2=98.0 %, Resp=20 B/min, Comment=NSR 01:31 PM Micro-Introducer Kit utilized for sheath placement : PM Time: 13:31 Versed 0.5 mg Intravenous Given by Sonny Conway RN gigi :32 PM HR=64 bpm, BRHB=970/127 mmhg, SpO2=97.0 %, Resp=26 B/min, Comment=NSR :32 PM Time: 13:32 Nitroglycerin 0.04 mg Sublingual Given by [facility] RN [facility] PM Right femoral bolus angio for sheath placement hand injected :34 PM Access obtained by percutaneous puncture. 6Fr 10cm [place] sheath placed in right Femoral artery. [id number] :34 PM 5Fr FL 4 catheter inserted over the wire [facility] :34 PM 0.035 145cm Navilyst 3mmJ wire [id number] :35 PM LCA angiography performed in multiple views. 01:35 PM Recorded Pressure: Ao, HR=71, Condition=Condition 1 (Aorta) Ao 146/101/123 01:37 PM HR=70 bpm, OMIJ=254/100 mmhg, SpO2=94.0 %, Resp=17 B/min, Comment=NSR 01:38 PM Recorded Pressure: Ao, HR=67, Condition=Condition 1 (Aorta) Ao 135/95/112 01:39 PM Catheter removed jc 01:40 PM 5Fr FR 4 catheter inserted over the wire [facility] jcallihan 01:41 PM Recorded Pressure: LV, HR=68, Condition=Condition 1 (Left Ventricle) LV 114/-4/4 01:41 PM Recorded Pressure: LV, Ao, HR=72, Condition=Condition 1 (Left Ventricle) LV 135/-2/7, (Aorta) Ao 120/80/97 01:41 PM Catheter selectively placed in left ventricle jcallihan :41 PM LV pressures obtained jcallihan :42 PM HR=73 bpm, EBOH=870/90 mmhg, SpO2=96.0 %, Resp=20 B/min, Comment=NSR 01:42 PM RCA angiography performed in multiple views. jcallihan :42 PM Recorded Pressure: Ao, HR=69, Condition=Condition 1 (Aorta) Ao 119/90/103 01:42 PM Time: 13:27LOC: 5 = Fully awake and oriented or at pre-proc level jcallihan :43 PM Time: 13:27 Patient comfortable and pain free: Yes jcallihan :43 PM Catheter removed jcallihan :43 PM Coronary Dominance: right jcallihan :43 PM 6Fr XB3.5 [place] Bright-Tip guide catheter was used to cannulate the PCI vessel successfully. reused? No jcallihan :44 PM PCI Indication: PCI for high risk Non-STEMI or unstable angina jcallihan :44 PM PCI Status Urgent jcallihan 01:44 PM PCI lesion in 1st Marginal. jcallihan :44 PM Lesion found in Mid RCA. Pre Stenosis: 95 Pre BISHNU Flow: 3: Complete and Brisk Flow/Perfusion jcallihan :44 PM Lesion found in Proximal LAD. Pre Stenosis: 40 jcallihan 01:45 PM Time: 13:45 Heparin 4000 units Intravenous Given by Sonny Conway RN [email or web address] :46 PM Time: 13:45 Aggrastat Bolus: 46 ml Intravenous Given by Sonny Conway RN Chance pump [email or web address] :46 PM Time: 13:46 Aggrastat 5mg/100ml 16.5 ml/hr Intravenous Given by Sonny Conway RN Chance pump jcallihan :46 PM Recorded Pressure: Ao, HR=66, Condition=Condition 1 (Aorta) Ao 140/90/111 01:47 PM Lesion found in Proximal LAD. Pre Stenosis: 40 jcallihan 01:47 PM Lesion found in Mid LAD. Pre Stenosis: 25 jcallihan 01:47 PM Lesion found in 1st Diagonal. Pre Stenosis: 50 jcallihan 01:47 PM HR=67 bpm, SUCM=149/96 mmhg, SpO2=95.0 %, Resp=28 B/min, Comment=NSR 01:48 PM Lesion found in 1st Marginal. Pre Stenosis: 90 Pre BISHNU Flow: 3: Complete and Brisk Flow/Perfusion jcallihan 01:50 PM .014 [employer] [place] 190cm guide wire across target lesion- successful. reused? No jcallihan 01:50 PM Inflation device was opened. jcallihan 01:50 PM 2.0 mm x 12 mm Emerge Monorail balloon across target lesion- successful. reused? No jcallihan 01:51 PM Balloon inflated @ 6 bill for 7 seconds jcallihan 01:51 PM Balloon inflated @ 9 bill for 7 seconds jcallihan 01:52 PM Balloon inflated @ 9 bill for 6 seconds jcallihan 01:52 PM Recorded Pressure: Ao, HR=65, Condition=Condition 1 (Aorta) Ao 131/93/110 01:52 PM HR=64 bpm, XZSH=876/90 mmhg, SpO2=96.0 %, Resp=19 B/min, Comment=NSR 01:52 PM Balloon inflated @ 10 bill for 10 seconds jcallihan 01:54 PM Balloon catheter removed intact. jcallihan 01:54 PM Proximal Left Anterior Descending Coronary Artery with 40% stenosis. If graft is supplying this territory, 0 % stenosis. jcallihan 01:54 PM Mid/Distal Left Anterior Descending Coronary Artery and diagonal branches with 50% stenosis. jcallihan 01:54 PM Circumflex, Obtuse Marginal, Left Posterior Descending, and Left Posterolateral Coronary Arteries with 90 % stenosis. jcallihan 01:54 PM Right Coronary, Right Posterior Descending Arteries with Right Posterolateral and Acute Marginal branches with 95 % stenosis. jcallihan 01:55 PM Balloon catheter removed intact. jcallihan 01:56 PM Guide wire removed intact. jcallihan 01:57 PM 2.75mm x 28mm Synergy drug-eluting stent across target lesion- successful Lot #[id number] jcallihan 01:57 PM Stent delivery system removed intact. Not deployed jcallihan 01:57 PM HR=64 bpm, VIXV=866/90 mmhg, SpO2=96.0 %, Resp=25 B/min, Comment=NSR 01:58 PM Time: 13:43 Patient comfortable and pain free: Yes jcallihan 01:58 PM Time: 13:42LOC: 5 = Fully awake and oriented or at pre-proc level jcallihan 02:00 PM 2.5 mm x 12 mm Emerge Monorail balloon across target lesion- successful. reused? No jcallihan 02:00 PM Balloon inflated @ 10 bill for 8 seconds jcallihan 02:00 PM Balloon inflated @ 10 bill for 5 seconds jcallihan 02:01 PM Balloon inflated @ 12 bill for 6 seconds jcallihan 02:01 PM Balloon inflated @ 12 bill for 5 seconds jcallihan 02:01 PM Balloon inflated @ 12 bill for 4 seconds jcallihan 02:02 PM Balloon inflated @ 12 bill for 5 seconds jcallihan 02:02 PM HR=63 bpm, GXEN=294/96 mmhg, SpO2=96.0 %, Resp=12 B/min, Comment=NSR 02:02 PM Balloon catheter removed intact. jcallihan 02:02 PM Recorded Pressure: Ao, HR=62, Condition=Condition 1 (Aorta) Ao 146/93/115 02:04 PM 2.75 x 28 stent reinserted jcallihan 02:05 PM .014 [employer] [place] 190cm guide wire across target lesion- successful. reused? No jcallihan 02:06 PM Stent delivery system removed intact. Undeployed jcallihan 02:07 PM 2nd Guide wire removed intact. jcallihan 02:07 PM HR=62 bpm, HTSI=407/105 mmhg, SpO2=96.0 %, Resp=20 B/min, Comment=NSR 02:07 PM Recorded Pressure: Ao, HR=61, Condition=Condition 1 (Aorta) Ao 157/99/121 02:08 PM 6Fr Guidezilla advanced jcallihan 02:09 PM 2.75 x 28 stent reinserted jcallihan 02:09 PM Stent deployed @ 11 bill for 6 seconds jcallihan 02:10 PM Stent balloon reinflated @ 16 bill for 9 seconds jcallihan 02:11 PM Stent balloon reinflated @ 15 bill for 9 seconds jcallihan 02:11 PM Stent delivery system removed intact. jcallihan 02:11 PM Guidezilla removed intact. jcallihan 02:12 PM Recorded Pressure: Ao, HR=64, Condition=Condition 1 (Aorta) Ao 157/100/122 02:12 PM HR=64 bpm, PCLJ=119/109 mmhg, SpO2=95.0 %, Resp=22 B/min, Comment=NSR 02:13 PM Time: 13:58 Patient comfortable and pain free: Yes jcallihan 02:13 PM Time: 13:58LOC: 5 = Fully awake and oriented or at pre-proc level jcallihan 02:13 PM 3.0 mm x 12 mm Emerge Monorail balloon across target lesion- successful. reused? No jcallihan 02:14 PM Recorded Pressure: Ao, HR=61, Condition=Condition 1 (Aorta) Ao 162/104/128 02:14 PM Balloon inflated @ 15 bill for 7 seconds jcallihan 02:15 PM Balloon inflated @ 16 bill for 4 seconds jcallihan 02:15 PM Balloon catheter removed intact. jcallihan 02:15 PM Guide wire removed intact. jcallihan 02:15 PM Guide catheter removed intact. jcallihan 02:17 PM HR=62 bpm, YWFH=482/114 mmhg, SpO2=96.0 %, Resp=17 B/min, Comment=NSR 02:18 PM PCI lesion in Mid RCA. jcallihan 02:18 PM Recorded Pressure: Ao, HR=60, Condition=Condition 1 (Aorta) Ao 161/94/119 02:19 PM 6Fr JR 4 [place] Bright-Tip guide catheter was used to cannulate the PCI vessel successfully. reused? No jcallihan 02:19 PM .014 [employer] [place] 190cm guide wire across target lesion- successful. reused? Yes jcallihan 02:20 PM 2.0 mm x 15 mm Emerge Monorail balloon across target lesion- successful. reused? No jcallihan 02:20 PM At 14:20 the ACT was 287 seconds. [email or web address] 02:21 PM Balloon inflated @ 6 bill for 7 seconds jcallihan 02:21 PM Balloon inflated @ 6 bill for 2 seconds jcallihan 02:21 PM Balloon inflated @ 8 bill for 5 seconds jcallihan 02:21 PM Balloon inflated @ 10 bill for 6 seconds jcallihan 02:22 PM HR=59 bpm, AJZJ=854/113 mmhg, SpO2=96.0 %, Resp=15 B/min, Comment=NSR 02:22 PM Balloon catheter removed intact. [email or web address] 02:24 PM 2.5mm x 20mm Synergy drug-eluting stent across target lesion- successful Lot #[id number] jcallihan 02:24 PM Stent deployed @ 16 bill for 7 seconds jcallihan 02:25 PM Recorded Pressure: Ao, HR=58, Condition=Condition 1 (Aorta) Ao 177/100/128 02:26 PM Guide wire removed intact. jcallihan 02:26 PM Stent delivery system removed intact. jcallihan 02:27 PM Guide catheter removed intact. jcallihan 02:27 PM HR=64 bpm, HFMG=284/106 mmhg, SpO2=97.0 %, Resp=18 B/min, Comment=NSR 02:28 PM JR4 reinserted jcallihan 02:28 PM Time: 14:13 Patient comfortable and pain free: Yes jcallihan 02:29 PM Left renal angiogram completed jcallihan 02:30 PM Recorded Pressure: Ao, HR=64, Condition=Condition 1 (Aorta) Ao 155/106/129 02:30 PM Right renal aniogram completed jcallihan 02:31 PM Catheter removed jcallihan 02:32 PM HR=57 bpm, EYSZ=032/113 mmhg, SpO2=94.0 %, Resp=12 B/min, Comment=NSR 02:34 PM Lesion found in Distal RCA. Pre Stenosis: 50 Pre BISHNU Flow: [email or web address] 02:34 PM Procedure completed at 14:34 jcallihan 02:35 PM Sign out completed: Radiation Dose 1877.35 mGy Fluoro Time: 19.0 Isovue 370 - 200ml contrast 250 ml given by Leslee Dumont MD. Complications: NoneCardiac Rehab Consult needed: YesConfirmed administered medications: Yes jcallihan 02:35 PM Isovue 370 - 500ml,1 Bottle(s) used. jcallihan 02:35 PM Arterial sheath pulled, Angio-seal closure device used and was Successful [id number] S/N. jcallihan 02:36 PM Post ECG NSR jcallihan 02:36 PM Post Blood Pressure 150/113 jcallihan 02:36 PM 14:36 Post Pulses Bilateral DP & PT 2+ jcallihan 02:37 PM Time: 14:36 Brilinta 180 mg Orally Given by Sonny Conway RN jcallihan 02:38 PM HR=62 bpm, VCLR=362/103 mmhg, SpO2=96.0 %, Resp=18 B/min, Comment=NSR 02:42 PM Information taught Cardiac Cath, PCI, and Angioseal jcallihan 02:42 PM Education needs Procedure, Plan of Care, and Safe & Effective Use of Medications jcallihan 02:42 PM Learning barriers :None jcallihan 02:42 PM Education Methods Verbal jcallihan 02:42 PM Education evaluation Able to repeat information jcallihan 02:42 PM Site status No bleeding/hematoma - Rt Groin as reported by Abdirizak Campo RT (R) at 14:42 jcallihan 02:42 PM Opsite applied jcallihan 02:43 PM Family placed in consult room. jcallihan 02:43 PM Time: 14:28LOC: 5 = Fully awake and oriented or at pre-proc level jcallihan 02:47 PM Report given to Keila COOK Pt taken to 2NE Room #27. 14:46 jcallihan 02:47 PM Plavix, Effient or Brilinta given Yes jcallihan 02:47 PM Delay to floor No jcallihan 02:47 PM Patient out of room: 14:47 jcallihan 02:47 PM Complications: None jcallihan 02:47 PM Fluoro Time: 19 jcallihan 02:47 PM Isovue 370 - 200ml contrast 250 ml given by Leslee Dumont MD. [email or web address] 02:47 PM Radiation Dose 1877.35 mGy jcallihan Complications Complication None Hemodynamics Pressures Site Systolic/A Wave Diastolic/V Wave Mean AO 146 101 123 AO 135 95 112 LV 114 -4 4 LV 135 -2 7 AO 120 80 97 AO 119 90 103 AO 140 90 111 AO 131 93 110 AO 146 93 115 AO 157 99 121 AO 157 100 122 AO 162 104 128 AO 161 94 119 AO 177 100 128 AO 155 106 129 Post Procedure Information Blood Pressure: 150/113 mmHg Rhythm: NSR Post procedural instructions were given Closure Device Time Device Success/Fail 02/06/2017 2:48:00 PM Angio-Seal VIP Successful Site Checks Time Location Status Staff Sheath In? Note 02:42 PM Rt Groin No bleeding/hematoma Abdirizak Campo RT (R) Pulses Time Site Pre-Procedure Post-Procedure Note 02/06/2017 1:13:00 PM Bilateral radial 2+ 02/06/2017 1:13:00 PM Bilateral DP & PT 2+ 2:36:00 PM Bilateral DP & PT 2+ Updated by Sonny Conway RN on 02/06/2017 2:59:05 PM electronically signed on 02/06/2017 2:59:49 PM with status of Final
[2017-02-06] MEDS ORDERED: *HR* Morphine 2 MG/ML SYRINGE IVP PRN (15:40)
[2017-02-06] MEDS ORDERED: *HR* HYDROcodone/Acet 5/325 mg TABLET PO PRN (15:40)
[2017-02-06] MEDS ORDERED: Acetaminophen 325 MG TABLET PO PRN (15:40)
[2017-02-06] MEDS ORDERED: diazePAM 5 MG TABLET PO PRN (15:54)
--- NOTE | 2017-02-06 17:27 | Electrocardiograph Report ---
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
[2017-02-06] MEDS: *HR* Ticagrelor 90 MG TABLET PO SCH (21:04)
[2017-02-07] MEDS: *HR* Heparin 5,000 UNIT/ML VIAL SQ SCH (05:54)
[2017-02-07 07:39] VITALS: BP 126/90
[2017-02-07] MEDS ORDERED: Metoprolol XL (24 HR) Succ 25 MG TAB.ER.24H PO SCH (09:00)
[2017-02-07] MEDS ORDERED: Aspirin 81 MG TAB.CHEW PO SCH (09:00)
[2017-02-07] MEDS ORDERED: amLODIPine 5 MG TABLET PO SCH (09:00)
--- NOTE | 2017-02-07 09:00 | Cardiology Progress Note ---
Date of Encounter: 02/07/17 Time of Encounter: 08:58 Assessment and Plan (1) CAD (coronary artery disease) Current Visit: Yes Status: Acute Presented with typical chest pain symptoms. S/P C yesterday revealed severe 2 vessel CAD, successful PTCA/MIREYA to mRCA, stent placed from prior procedure in 1st diagonal is patent. Successful PTCA/ MIREYA to OM. Bilateral renal arteries 0% stenosis. DAPT (ASA and Brilinta) uninterrupted x 1 year. Pt verbalizes understanding. Continue BB. No statin due to prior intolerance. Lifestyle modification discussed. Right femoral access site healing well. No bleeding, hematoma or ecchymosis noted. Restrictions discussed. Do not return to work for minimum of 1 week. Will coordinate outpt follow-up in 3-4 weeks. Cardiology signing off. Reconsult PRN. Qualifiers: Coronary Disease-Associated Artery/Lesion type: [place] artery [place] vs. transplanted heart: [place] heart Associated angina: angina presence unspecified Qualified Code(s): I25.10 - Atherosclerotic heart disease of [place] coronary artery without angina pectoris (2) Hypertensive urgency Current Visit: Yes Status: Acute B/p as high as 224/144. Now improved, 126/90 this AM. Continue BB, ACEi, CCB. (3) Elevated troponin Current Visit: Yes Status: Acute Troponin 0.08, 0.07, 0.07 in the setting of hypertensive urgency. Nondiagnostic for ACS. Discussion w patient/family: The assessment and plan as outlined above was discussed with the patient and/or family members who expressed understanding and agreement. All questions were answered. Thank you for involving us in the care of your patient. Please call with any questions. I will discuss all the above with Dr. Bueno and make changes as necessary. Subjective Principal diagnosis: Chest pain, hypertensive urgency Interval history: S/P LHC yesterday--revealed severe 2 vessel CAD--s/p successful PTCA/MIREYA to mRCA , stent placed from prior procedure in 1st diagonal is patent. Successful PTCA/ MIREYA in OM. Bilateral renal arteries 0% stenosis. Pt denies chest pain or dyspnea overnight. Objective Vital Signs, Last 4 Hours Temp Pulse Resp BP 02/07/17 07:37 98.4 F 72 16 126/90 Vital Signs Temp Pulse Resp BP Pulse Ox 02/07/17 07:37 98.4 F 72 16 126/90 02/07/17 04:24 97.8 F 77 16 128/91 97 02/06/17 23:58 98.3 F 73 18 128/91 94 02/06/17 19:35 97.9 F 66 16 123/83 95 02/06/17 15:33 62 177/124 02/06/17 15:31 97.7 F 64 16 165/124 96 02/06/17 11:26 98.2 F 56 16 164/102 97 Intake and Output 02/06/17 02/07/17 02/07/17 23:59 07:59 15:59 Intake Total 0 / 0 0 / 0 Balance 0 / 0 0 / 0 Intake: Oral 0 / 0 0 / 0 Other: # Voids 1 1 Weight 89.2 kg Patient Weight 02/07/17 23:59 Weight 89.2 kg General: Conversant, No Apparent Distress HEENT: Atraumatic, Normocephaly, Mucus Membranes Moist Neck: No JVD, Normal carotid pulses Cardiac: Reg Rate and Rhythm, Normal S1 and S2, No Murmur Lungs: Normal Breath Sounds, No Wheeze, Rales, Rhonchi Neuro: Alert and responsive, No focal deficits noted Abdomen: Soft, Non-Tender Skin: Other (right femoral access site healing well. No bleeding, hematoma or ecchymosis noted.) Musculoskeletal: No Chest Wall Tenderness Extremities: No Clubbing, No Cyanosis, No Edema, Normal Pulses Results 02/06/17 02:48 02/06/17 02:48 Impressions Echocardiogram 02/05/17 11:40 Impressions: LVEF 60%. Mild left ventricular diastolic dysfunction. Normal right ventricular structure and function. No significant valvular dysfunction. No pulmonary hypertension. Left Ventricular Wall Motion: Rest Echo Findings All wall segments showed normal motion. Findings: Study Quality * Technically adequate exam. ECG Findings * Normal sinus rhythm. Left Ventricle * LVEF 60%. * Normal LV chamber size, wall thickness and function. * Mild left ventricular diastolic dysfunction. Right Ventricle * Normal right ventricular structure and function. Left Atrium * Normal left atrial size. Right Atrium * Normal right atrial size. Aortic Valve * No aortic regurgitation. * Trileaflet aortic valve. * Normal aortic valve structure. * No aortic stenosis. Mitral Valve * No mitral regurgitation. * Normal mitral valve structure. * No mitral stenosis. Tricuspid Valve * Tricuspid valve not well visualized. * No tricuspid regurgitation. * Estimated RA pressure is 3 mmHg. Pulmonic Valve * Pulmonic valve is not well visualized. * No pulmonic stenosis. * No pulmonic regurgitation. Pulmonary Artery * Pulmonary artery not well visualized. Aorta * Normally sized aortic root. Pericardium * There is no pericardial effusion present. Interatrial Septum * No evidence of PFO by color Doppler. IVC * Normal IVC dimensions and inspiratory collapse. Active Medications Acetaminophen (Tylenol) 650 mg PO Q6HR PRN PRN Reason: Mild Pain Stop: 08/08/17 15:41 Hydrocodone Bitart/Acetaminophen ([place] 5-325 Mg) 1 tab PO Q4HR PRN PRN Reason: Moderate Pain Stop: 08/08/17 15:41 Amlodipine Besylate (Norvasc) 5 mg PO DAILY [facility] PRN Reason: Protocol Stop: 08/09/17 09:01 Aspirin (Aspirin) 81 mg PO DAILY [facility] Stop: 08/09/17 09:01 Diazepam (Valium) 5 mg PO BID PRN PRN Reason: Anxiety Stop: 08/08/17 15:55 Lisinopril/HCTZ (Prinzide 20-12.5) 2 each PO DAILY [facility] Stop: 08/08/17 09:01 Last Admin: 02/06/17 08:41 Dose: 2 each Heparin Sodium (Porcine) (Heparin) 5,000 unit SQ Q12HR [facility] Stop: 08/07/17 18:01 Last Admin: 02/07/17 05:54 Dose: 5,000 unit Hydralazine HCl (Hydralazine) 5 mg IVP Q6HR PRN PRN Reason: Hypertension Stop: 08/07/17 17:51 Last Admin: 02/06/17 15:26 Dose: 5 mg Ibuprofen (Motrin) 400 mg PO Q8HR PRN PRN Reason: FEVER/PAIN Stop: 08/07/17 20:36 Last Admin: 02/05/17 20:51 Dose: 400 mg Levothyroxine Sodium (Synthroid) 175 mcg PO 0630 [facility] Stop: 08/08/17 06:31 Last Admin: 02/07/17 05:53 Dose: 175 mcg Metoprolol Succinate (Toprol Xl) 25 mg PO DAILY [facility] Stop: 08/09/17 09:01 Morphine Sulfate (Morphine Sulfate) 2 mg IVP Q2H PRN PRN Reason: Severe Pain Stop: 08/08/17 15:41 Naloxone HCl (Narcan) 0.4 mg IVP Q2MIN PRN PRN Reason: Opioid Reversal Stop: 08/07/17 12:19 Nitroglycerin (Nitroglycerin) 0.4 mg SL Q5MIN PRN PRN Reason: Chest Pain Stop: 08/07/17 10:59 Ticagrelor (Brilinta) 90 mg PO BID [facility] Stop: 08/08/17 21:01 Last Admin: 02/06/17 21:04 Dose: 90 mg - Imaging and Cardiology Echo: report reviewed Cardiac cath: report reviewed - EKG Interpretation EKG results cardiology: other (12 hr tele AVG HR 69, SR, no significant pauses or arrhythmias.) Consult Discharge Plan - Plan Additional Instructions: RISK FACTORS: STOP SMOKING: If you smoke, STOP. Smoking or tobacco use significantly increases your risk of heart disease because nicotine causes the arteries to narrow or constrict. It also causes fats to stick to the artery. Your chances of having a heart attack are greatly increased if you continue to smoke. For more information, call the education line for smoking cessation 5-643-MFBWCVZ EAT A LOW FAT/CHOLESTEROL/SODIUM DIET: This diet may help reduce your chances of having a heart attack. LIFTING: Avoid lifting anything more than 10 pounds for 5-7 days Prior to straining, laughing, sneezing and/or coughing, apply manual pressure directly over insertion site. ACTIVITY: You may walk or climb stairs as tolerated You can resume sexual activity as tolerated In general, you are encouraged to engage in a minimum of 30 minutes or more of moderate intensity physical activity, such as brisk walking, daily or at least 3 -4 times weekly BATHING Do not submerge the site into water (bath tub, hot tub, swimming pool) for 1 week. This can be a source for infection into the blood stream. You may shower after 24 hours SITE CARE: After 24 hours, you may remove the dressing and leave the site open to air. Keep the site clean and dry. Clean gently and pat dry. You can expect bruising and tenderness that gradually resolve within a week or two. Return to work as instructed per your physician Resume driving as instructed per physician Keep all scheduled follow up appointments Resume medications as instructed IMPORTANT: If prescribed a Platelet Aggregation Inhibitor such as, Plavix, Brilinta or Effient: Duration of therapy is minimum one year These medications are often used in combination with Aspirin in prevention of future heart attacks Never discontinue unless consult with your Manager People STROKE (CVA) Risk factors for a stroke are: Age, cigarette smoking, diabetes, excessive alcohol consumption, family history, high blood pressure, overweight, physical inactivity, prior stroke, heart attack, diagnosis of carotid artery stenosis or other artery disease. Warning signs: Sudden numbness or weakness of the face, arm or leg; especially on one side of the body, sudden confusion, trouble speaking or understanding, sudden trouble seeing in one or both eyes, sudden trouble walking, dizziness, loss of balance or coordination, sudden severe headache with no cause. Call 911 or go to the Emergency Room. CONGESTIVE HEART FAILURE: If you have been diagnosed with Congestive Heart Failure (CHF) and your symptoms return, make an appointment with your physician Weigh yourself daily. Notify your physician if you have a weight gain of two or more pounds in one day or five or more pounds in one week. If you experience any difficulty breathing, please call 911 BLEEDING: Although the risk of bleeding is minimal, it can happen. If you have any bleeding from the site, apply firm pressure above the puncture site for 10-15 minutes. If the bleeding does not stop, continue manual pressure and call 911 Contact your physician if: You develop a fever greater than 101 degrees Fahrenheit Your site becomes reddened or has any drainage You have an increase in pain or burning at the site or if a large knot forms at the site. If you experience chest pain, shortness of breath, dizziness, or extreme tiredness, stop the activity and rest. Please notify your physicians office if you experience any of these symptoms and they are not relieved by rest please call 911! Referrals: Cliff Junior MD [Primary Care Provider] -
[2017-02-07] MEDS: *HR* Ticagrelor 90 MG TABLET PO SCH (09:06)
[2017-02-07] MEDS: Lisinopril-HCTZ 20-12.5mg TABLET PO SCH (09:06)
--- NOTE | 2017-02-07 10:19 | Discharge Summary ---
<NinoAmrik carrasco - Last Filed: 02/07/17 10:31> Date of Encounter: 02/07/17 Time of Encounter: 10:05 - Discharge Diagnosis (1) CAD (coronary artery disease) Priority: Primary Status: Acute Comments: Underwent LHC 02/06/17 which revealed severe 2 vessel CAD, successful PTCA/MIREYA to mRCA, stent placed from prior procedure in 1st diagonal is patent. Successful PTCA/MIREYA to OM. Bilateral renal arteries 0% stenosis. DAPT (ASA and Brilinta) uninterrupted x 1 year. Pt verbalizes understanding. Continue BB. No statin due to prior intolerance. Lifestyle modification discussed. Right femoral access site healing well. No bleeding, hematoma or ecchymosis noted. Restrictions discussed. Do not return to work for minimum of 1 week. Will coordinate outpt follow-up in 3-4 weeks. Cardiology signing off. Reconsult PRN. Qualifiers: Coronary Disease-Associated Artery/Lesion type: [place] artery [place] vs. transplanted heart: [place] heart Associated angina: angina presence unspecified Qualified Code(s): I25.10 - Atherosclerotic heart disease of [place] coronary artery without angina pectoris (2) Chest pain Priority: Primary Status: Acute Comments: Typical chest pain. NTG SL prn CP Qualifiers: Chest pain type: unspecified Qualified Code(s): R07.9 - Chest pain, unspecified (3) Elevated troponin Priority: Primary Status: Acute Comments: Troponin 0.08, 0.07, 0.07 in the setting of hypertensive urgency. Nondiagnostic for ACS. (4) Hypertensive urgency Priority: Primary Status: Acute Comments: B/p as high as 224/144. Now improved, 126/90 this AM. Continue BB, ACEi, CCB. (5) Tobacco abuse Priority: Secondary Status: Chronic Comments: Counseling on tobacco cessation more than 10 minutes spent counseling on rn long term care complication. Counseling on different methods of treatment, nicotine patch (6) Alcohol abuse Priority: Secondary Status: Chronic Comments: Add thiamine and folic acid monitor for any alcohol withdrawal symptom (7) DVT prophylaxis Priority: Primary Status: Acute Comments: Ambulation. ASA and Brilinta - Discharge Medications Prescriptions: Nitroglycerin 0.4 mg SL Q5MIN PRN #25 tab.subl PRN Reason: Chest Pain amLODIPine [Norvasc] 5 mg PO DAILY #30 tablet Metoprolol XL (24 HR) Succ [Toprol Xl] 25 mg PO DAILY #30 tab.er.24h Nicotine Patch [Nicoderm] 14 mg TD DAILY #30 patch.td24 Ticagrelor [Brilinta] 90 mg PO BID #60 tablet Home Medications: Levothyroxine [Synthroid] 175 mcg PO DAILY 02/05/17 [History] Lisinopril-HCTZ 20-12.5 [Prinzide 20-12.5] 2 tab PO DAILY 02/05/17 [History] Acetaminophen [Tylenol] 650 mg PO Q6HR PRN tablet 02/07/17 [Rx] Aspirin 81 mg PO DAILY tab.chew 02/07/17 [Rx] Ibuprofen [Motrin] 400 mg PO Q8HR PRN tablet 02/07/17 [Rx] Metoprolol XL (24 HR) Succ [Toprol Xl] 25 mg PO DAILY #30 tab.er.24h 02/07/17 [ Rx] Nicotine Patch [Nicoderm] 14 mg TD DAILY #30 patch.td24 02/07/17 [Rx] Nitroglycerin 0.4 mg SL Q5MIN PRN #25 tab.subl 02/07/17 [Rx] Ticagrelor [Brilinta] 90 mg PO BID #60 tablet 02/07/17 [Rx] amLODIPine [Norvasc] 5 mg PO DAILY #30 tablet 02/07/17 [Rx] Allergies/Adverse Reactions: 3 Allergy/AdvReac Type Severity Reaction Status Date / Time No Known Allergies Allergy Verified 02/05/17 09:27 Procedures/tests Complete & Pending: Procedures Performed prior 72 hours Category Date Time Status CL Cardiac Catheterization [CL] Routine [place] 02/06/17 11:13 Completed Date of admission: 02/05/17 11:49 Primary care physician: Cliff Junior MD Consults: 02/07/17 07:58 Consult to Cardiac Rehabilitation-Phase1 [CONS] Routine Comment: Reason for Consult: CAD s/p PCI Call Completed: No Discharging clinician: Amrik Kramer Anticipated date of discharge: 02/07/17 - Patient Status Disposition: Home, Self-Care Condition: Good Functional capacity at discharge: independent ambulation Overall status at discharge: patient is back to baseline - Discharge Instructions Instructions: Metoprolol (By mouth), Nicotine (Absorbed through the skin), Amlodipine (By mouth), Nitroglycerin, Rapid Release (By mouth), Ticagrelor (By mouth), Chest Pain (DC), Coronary Intravascular Stent Placement (DC) Follow Up With: Edgar Wilde CNP [Advanced Practice Nurse] - (office will call patient at home with appointment date and time) Cliff Junior MD [Primary Care Provider] - 02/14/17 3:45 pm Additional Instructions: Do not return to work for minimum of 1 week. Schedule follow up appointment with cardiology in 3-4 weeks Continue Aspirin and Brilinta uninterrupted for 1 year. Talk to dobby loom fixer at follow up appointment about switching to Plavix after 1 month. Continue Metoprolol, Lisinopril and Norvasc. Take Nitroglycerin as needed for chest pain. RISK FACTORS: STOP SMOKING: If you smoke, STOP. Smoking or tobacco use significantly increases your risk of heart disease because nicotine causes the arteries to narrow or constrict. It also causes fats to stick to the artery. Your chances of having a heart attack are greatly increased if you continue to smoke. For more information, call the education line for smoking cessation 5-267-UXNAZWQ EAT A LOW FAT/CHOLESTEROL/SODIUM DIET: This diet may help reduce your chances of having a heart attack. LIFTING: Avoid lifting anything more than 10 pounds for 5-7 days Prior to straining, laughing, sneezing and/or coughing, apply manual pressure directly over insertion site. ACTIVITY: You may walk or climb stairs as tolerated You can resume sexual activity as tolerated In general, you are encouraged to engage in a minimum of 30 minutes or more of moderate intensity physical activity, such as brisk walking, daily or at least 3 -4 times weekly BATHING Do not submerge the site into water (bath tub, hot tub, swimming pool) for 1 week. This can be a source for infection into the blood stream. You may shower after 24 hours SITE CARE: After 24 hours, you may remove the dressing and leave the site open to air. Keep the site clean and dry. Clean gently and pat dry. You can expect bruising and tenderness that gradually resolve within a week or two. Return to work as instructed per your physician Resume driving as instructed per physician Keep all scheduled follow up appointments Resume medications as instructed IMPORTANT: If prescribed a Platelet Aggregation Inhibitor such as, Plavix, Brilinta or Effient: Duration of therapy is minimum one year These medications are often used in combination with Aspirin in prevention of future heart attacks Never discontinue unless consult with your [employer] Developer STROKE (CVA) Risk factors for a stroke are: Age, cigarette smoking, diabetes, excessive alcohol consumption, family history, high blood pressure, overweight, physical inactivity, prior stroke, heart attack, diagnosis of carotid artery stenosis or other artery disease. Warning signs: Sudden numbness or weakness of the face, arm or leg; especially on one side of the body, sudden confusion, trouble speaking or understanding, sudden trouble seeing in one or both eyes, sudden trouble walking, dizziness, loss of balance or coordination, sudden severe headache with no cause. Call 911 or go to the Emergency Room. CONGESTIVE HEART FAILURE: If you have been diagnosed with Congestive Heart Failure (CHF) and your symptoms return, make an appointment with your physician Weigh yourself daily. Notify your physician if you have a weight gain of two or more pounds in one day or five or more pounds in one week. If you experience any difficulty breathing, please call 911 BLEEDING: Although the risk of bleeding is minimal, it can happen. If you have any bleeding from the site, apply firm pressure above the puncture site for 10-15 minutes. If the bleeding does not stop, continue manual pressure and call 911 Contact your physician if: You develop a fever greater than 101 degrees Fahrenheit Your site becomes reddened or has any drainage You have an increase in pain or burning at the site or if a large knot forms at the site. If you experience chest pain, shortness of breath, dizziness, or extreme tiredness, stop the activity and rest. Please notify your physicians office if you experience any of these symptoms and they are not relieved by rest please call 911! - Diet and Activity Activity: increase activity as tolerated, other (Do not return to work for minimum of 1 week.) Diet: low fat, low cholesterol, low salt diet Hospital course: Mr. Villarreal is a 56 year old male with a history of CAD s/p MD and PCI 10 years ago at [facility], HTN, noncompliance, tobacco and ETOH use. 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 The pain was midsternal and non radiating. Over the last week he c/o increasing intermittent chest pain radiating down both of his arms and to his back. The pain starts with minimal activity and improves with rest. He reports stopping all of his medications except for asa and synthroid. He stopped his anti-hypertensive medication due to fatigue. He reports having uncontrolled hypertension for years due to inability to tolerate b/p medication. He unfortunately continues to smoke 1-1/2 packs a day. He drinks 6 shots of vodka at night. Cardiology consulted for elevated troponin. He was chest pain free after taking SL NTG and NTG paste. Patient underwent LHC 02/06/17 which revealed severe 2 vessel CAD, successful PTCA/MIREYA to mRCA, stent placed from prior procedure in 1st diagonal is patent and successful PTCA/MIREYA to OM. Continue DAPT (ASA and Brilinta) uninterrupted x 1 year. Pt verbalizes understanding. Continue BB. No statin due to prior intolerance. Lifestyle modification discussed. Scheduled outpt follow- up in 3-4 weeks with cardiology. - Time Spent with Patient Total time spent providing and/or coordinating discharge services: - Constitutional Vitals: Temp Pulse Resp BP Pulse Ox 98.4 F 72 16 126/90 97 02/07/17 07:37 02/07/17 07:37 02/07/17 07:37 02/07/17 07:37 02/07/17 04:24 General appearance: Present: cooperative, A&O X 3, no acute distress, obese, answers questions appropriately - Head Head exam: Present: atraumatic, normal inspection, normocephalic - Eye Eye exam: Present: EOMI, PERRL - ENT ENT exam: Present: mucous membranes moist, normal oropharynx - Neck Neck exam general surgery: Present: normal inspection, supple - Respiratory Respiratory exam: Present: CTAB. Absent: accessory muscle use, respiratory distress, rhonchi, wheezes - Cardiovascular Cardiovascular exam: Present: RRR, +S1, +S2 - GI/Abdominal GI/Abdominal exam: Present: normal bowel sounds, soft. Absent: distended, firm , tenderness - Extremities Exam Extremities exam: Present: normal inspection. Absent: pedal edema, tenderness Additional comments: Right femoral access site healing well. No bleeding, hematoma or ecchymosis noted. - Incison Incision: Present: clean and dry, intact - Back Exam Back exam: Present: normal inspection. Absent: paraspinal tenderness, tenderness - Neurological Exam Neurological exam: Present: alert, oriented X3, no focal deficits. Absent: altered, facial droop, speech deficit - Psychiatric Psychiatric exam: Present: normal affect, normal mood - Skin Skin exam: Present: dry, intact (Right femoral access site healing well. No bleeding, hematoma or ecchymosis noted.), normal color, warm - AMI Reason for No Statin at DC: Refusal of treatment by parents/family (Previous statin intolerance) <Fernando Nichole - Last Filed: 02/07/17 17:57> Date of Encounter: 02/07/17 Procedures/tests Complete & Pending: Procedures Performed prior 72 hours Category Date Time Status CL Cardiac Catheterization [CL] Routine [place] 02/06/17 11:13 Completed Date of admission: 02/05/17 11:49 Primary care physician: Cliff Junior MD Consults: 02/07/17 07:58 Consult to Cardiac Rehabilitation-Phase1 [CONS] Routine Comment: Reason for Consult: CAD s/p PCI Call Completed: No Hospital course: Mr. Villarreal is a 56 year old male - Time Spent with Patient Total time spent providing and/or coordinating discharge services: - Constitutional Vitals: Temp Pulse Resp BP Pulse Ox 98.4 F 72 16 126/90 97 02/07/17 07:37 02/07/17 07:37 02/07/17 07:37 02/07/17 07:37 02/07/17 04:24 - Attending Attestation I examined this patient and my medical decision-making was reviewed with the Resident Physician on 02/07/17. I agree with the documented findings, disposition and treatment plan as described except to the extent set forth below. Mr Villarreal has been admitted for CAD and had cath with stent. He is now afebrile with stable vitals and ready for discharge home. Exam Alert. Comfortable Heart reg No wheeze Abd soft Plan D/C home today Follow up with PCP and card
== END 2017-02-07 12:42 | disposition home or self-care (01) ==
LOC: 3BNU 09:26 → EMEROO 09:26 → SUATTDRO 11:49 → 3BNU 13:59 → 2NENU 02-06 15:05
PROVIDERS: ADMIT Family Medicine; ATTEND Internal Medicine

== ENCOUNTER 2017-08-11 13:19 | Inpatient (IN) ==
[2017-08-11] MEDS ORDERED: Nitroglycerin 0.4 MG TAB.SUBL SL PRN (13:30)
--- NOTE | 2017-08-11 13:41 | Emergency Department Note ---
Disposition Clinical Impression: Angina pectoris, Non-ST elevated myocardial infarction Chest pain Qualifiers: Chest pain type: unspecified Qualified Code(s): R07.9 - Chest pain, unspecified Disposition: Admitted As Inpatient Condition: Fair Referrals: Cliff Junior MD [Primary Care Provider] - [employer] OPERATOR CALLI [Other] Forms: ED Satisfaction Letter Time of Disposition: 14:26 Chest Pain HPI - General Chief Complaint: ED Chest Pain Stated Complaint: CP Time Seen by Provider: 08/11/17 13:28 Source: patient, family Mode of arrival: ambulatory Limitations: no limitations Vital Signs Reviewed: Yes Nursing Notes Reviewed: Yes - History of Present Illness HPI Narrative: Patient arrives complaining of chest pain over the past several days. Pain worse with exertion. Localized substernal radiating to his left shoulder. Associated diaphoresis and dyspnea. He does admit to a productive cough. 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 He states he took nitroglycerin which relieved the pain for 15 minutes until it returned. He does have pain at the time of my examination Subjectively the patient states this pain is similar to when he had a previous myocardial infarction Pt complaint: chest pain Onset (ago): day(s) Duration: constant Onset: during exertion Pain Location: substernal Severity: moderate Severity scale (1-10): 8 Quality: tightness, aching Pain Radiation: LUE Improves with: nitroglycerin Worsens with: inspiration Associated symptoms: Reports: diaphoresis, dyspnea, cough Treatments prior to arrival chest pain: aspirin, nitroglycerin - Related Data On Oral Contraceptives: No Home Medications Medication Instructions Recorded Confirmed Levothyroxine [Synthroid] 175 mcg PO DAILY 02/05/17 08/11/17 Amlodipine Besylate 10 mg PO DAILY 08/11/17 08/11/17 Ranolazine [Ranexa] 500 mg PO BID 08/11/17 08/11/17 Previous Rx's Medication Instructions Recorded Acetaminophen [Tylenol] 650 mg PO Q6HR PRN tablet 02/07/17 Aspirin 81 mg PO DAILY tab.chew 02/07/17 Metoprolol XL (24 HR) Succ [Toprol 25 mg PO DAILY #30 tab.er.24h 02/07/17 Xl] Nitroglycerin 0.4 mg SL Q5MIN PRN #25 tab.subl 02/07/17 Ticagrelor [Brilinta] 90 mg PO BID #60 tablet 02/07/17 Allergies Allergy/AdvReac Type Severity Reaction Status Date / Time No Known Allergies Allergy Verified 02/05/17 09:27 All systems ED: reviewed and negative except as stated. Constitutional: Reports: as per HPI Eyes: Reports: as per HPI ENT ED: Reports: as per HPI Cardiovascular: Reports: chest pain, dyspnea on exertion Respiratory: Reports: cough Gastrointestinal: Reports: as per HPI Genitourinary: Reports: as per HPI Musculoskeletal: Reports: as per HPI Integumentary: Reports: as per HPI Neurological: Reports: confusion Psychiatric: Reports: as per HPI Endocrine: Reports: as per HPI Hematological/Lymphatic: Reports: as per HPI Allergic/Immunologic: Reports: as per HPI Chest Pain PMH - Past Medical History Medical history: Reports: coronary artery disease, hypertension, myocardial infarction, thyroid disease Psychiatric history: Reports: no psych history - Social History Smoking Status: Current every day smoker Alcohol use: Reports: occasionally Drug use: Reports: none Physical Exam - General Limitations: no limitations General appearance: alert, in no apparent distress - Head Head exam: atraumatic - Eye Eye exam: Present: normal appearance - ENT ENT exam: normal exam - Neck Neck exam: Present: normal inspection, full ROM - Chest Chest inspection: Present: normal inspection, symmetric chest wall rise - Respiratory Respiratory exam: Present: other (Mild expiratory rhonchi at right posterior infrascapular region) - Cardiovascular Cardiovascular exam: Present: regular rate, normal rhythm, normal heart sounds - Extremities Exam Extremities exam: Present: normal inspection - Neurological Exam Neurological exam: Present: alert, oriented X3, CN II-XII intact - Psychiatric Psychiatric exam: Present: normal affect, normal mood - Skin Skin exam: Present: warm, dry, intact Course Course Narrative: Patient presents with chest pain. History of coronary artery disease. Other risk factors include hypertension and active tobacco use. ECG does not show acute ST segment elevation at time of arrival. Chest pain workup including serum troponin initiated Vital Signs Temperature 97.5 F L 08/11/17 13:22 Pulse Rate 100 08/11/17 13:22 Respiratory Rate 16 08/11/17 13:22 Blood Pressure 169/120 08/11/17 13:22 O2 Sat by Pulse Oximetry 98 08/11/17 13:22 Temperature 97.5 F L 08/11/17 13:22 Pulse Rate 98 08/11/17 14:20 Respiratory Rate 15 08/11/17 14:20 Blood Pressure 124/92 08/11/17 14:20 O2 Sat by Pulse Oximetry 93 08/11/17 14:20 Oxygen Delivery Oxygen Delivery Room Air Chest Pain - Lab Data Lab results reviewed: Yes I reviewed the patient's lab results. Result diagrams: 08/11/17 13:29 08/11/17 13:29 Lab Results 08/11/17 08/11/17 08/11/17 Range/Units 13:29 13:29 13:30 WBC 9.8 (4.3-11.1) K/mcL RBC 5.42 (4.19-5.50) M/mcL Hgb 19.2 H (12.9-16.9) g/dL Hct 54.7 H (37.5-50.1) % MCV 100.9 H (83.0-100.0) fL MCH 35.4 H (28.0-33.3) pg MCHC 35.1 (31.6-35.5) g/dL RDW 13.2 (11.5-14.5) % Plt Count 252 (140-400) K/mcL MPV 9.6 (9.4-12.4) fL Immature Gran % 0.5 (0-4) % Seg Neutrophils % 63.2 % Lymphocytes % 24.2 % Monocytes % 9.5 % Eosinophils % 1.6 % Basophils % 1.0 % Neutrophils # 6.2 (1.6-8.9) K/mcL Lymphocytes # 2.4 (0.6-4.6) K/mcL Monocytes # 0.9 (0.0-1.3) K/mcL Eosinophils # 0.2 (0.0-0.6) K/mcL Basophils # 0.1 (0.0-0.2) K/mcL PT 11.1 (9.4-12.1) Seconds INR 1.0 Sodium 137 (136-145) mEq/L Potassium 3.5 (3.5-5.1) mEq/L Chloride 100 (98-107) mEq/L Carbon Dioxide 30 H (23-29) mEq/L BUN 11 (6-20) mg/dL Creatinine 0.97 (0.70-1.30) mg/dL Est GFR ( Amer) > 60 (> 60) Est GFR (Non-Af Amer) > 60 (> 60) BUN/Creatinine Ratio 11 (6-26) Glucose 138 H (70-105) mg/dL Calculated Osmolality 286 (280-300) Calcium 10.2 (8.6-10.3) mg/dL Total Bilirubin 0.8 (0.3-1.0) mg/dL AST 44 H (13-39) Units/L ALT 45 (7-52) Units/L Alkaline Phosphatase 72 (34-104) Units/L Troponin I (< 0.04) ng/mL Serum Total Protein 7.6 (6.4-8.9) g/dL Albumin 4.4 (3.5-5.7) g/dL Globulin 3.2 (2.4-3.5) g/dL Albumin/Globulin Ratio 1.4 (1.1-2.2) 08/11/17 Range/Units 13:30 WBC (4.3-11.1) K/mcL RBC (4.19-5.50) M/mcL Hgb (12.9-16.9) g/dL Hct (37.5-50.1) % MCV (83.0-100.0) fL MCH (28.0-33.3) pg MCHC (31.6-35.5) g/dL RDW (11.5-14.5) % Plt Count (140-400) K/mcL MPV (9.4-12.4) fL Immature Gran % (0-4) % Seg Neutrophils % % Lymphocytes % % Monocytes % % Eosinophils % % Basophils % % Neutrophils # (1.6-8.9) K/mcL Lymphocytes # (0.6-4.6) K/mcL Monocytes # (0.0-1.3) K/mcL Eosinophils # (0.0-0.6) K/mcL Basophils # (0.0-0.2) K/mcL PT (9.4-12.1) Seconds INR Sodium (136-145) mEq/L Potassium (3.5-5.1) mEq/L Chloride (98-107) mEq/L Carbon Dioxide (23-29) mEq/L BUN (6-20) mg/dL Creatinine (0.70-1.30) mg/dL Est GFR ( Amer) (> 60) Est GFR (Non-Af Amer) (> 60) BUN/Creatinine Ratio (6-26) Glucose (70-105) mg/dL Calculated Osmolality (280-300) Calcium (8.6-10.3) mg/dL Total Bilirubin (0.3-1.0) mg/dL AST (13-39) Units/L ALT (7-52) Units/L Alkaline Phosphatase (34-104) Units/L Troponin I 0.23 H* (< 0.04) ng/mL Serum Total Protein (6.4-8.9) g/dL Albumin (3.5-5.7) g/dL Globulin (2.4-3.5) g/dL Albumin/Globulin Ratio (1.1-2.2) - Radiology Data Radiology results reviewed: Yes I reviewed the patient's radiology results. - EKG Data EKG attestation: Yes I reviewed and interpreted this EKG. EKG results narrative: Sinus tachycardia rate 101 MN 132 QRS 94 QT/QTC 355/413. Left anterior fascicular block. No acute ST segment elevation. Compared to previous ECG obtained 02/05/17 Heart Score - Score History: Highly Suspicious EKG: Normal Age: 45-65 Risk Factors: Equal/Greater than 3 risk factor or history of atherosclerotic disease Troponin: 1-3x normal limit HEART Score Total: 6 Critical Care Time Critical Care Time: Yes Total Critical Care Time: 30 Attestation: The high probability of a clinically significant, sudden or life threatening deterioration of the [] system(s) required my full and direct attention, intervention and personal management. The aggregate critical care time was [] minutes. This time is in addition to time spent performing reported procedures but includes the following: [] Data Review and interpretation [] Patient assessment and monitoring of vital signs [] Documentation [] Medication orders and management
[2017-08-11 14:05] LABS: Basophils # 0.1 K/mcL (0.0-0.2); Eosinophils # 0.2 K/mcL (0.0-0.6); Eosinophils % 1.6 %; Hematocrit 54.7 % (37.5-50.1); Hemoglobin 19.2 g/dL (12.9-16.9); Immature Granulocytes % 0.5 % (0-4); Lymphocytes # 2.4 K/mcL (0.6-4.6); Lymphocytes % 24.2 %; Mean Corpuscular HGB Conc 35.1 g/dL (31.6-35.5); Mean Corpuscular Hemoglobin 35.4 pg (28.0-33.3); Mean Corpuscular Volume 100.9 fL (83.0-100.0); Mean Platelet Volume 9.6 fL (9.4-12.4); Monocytes # 0.9 K/mcL (0.0-1.3); Monocytes % 9.5 %; Neutrophils # 6.2 K/mcL (1.6-8.9); Platelet Count 252 K/mcL (140-400); Red Blood Count 5.42 M/mcL (4.19-5.50); Red Cell Distribution Width 13.2 % (11.5-14.5); Segmented Neutrophils % 63.2 %
[2017-08-11 14:14] LABS: Prothrombin Time 11.1 Seconds (9.4-12.1)
[2017-08-11 14:24] LABS: Alanine Aminotransferase 45 Units/L (7-52); Albumin 4.4 g/dL (3.5-5.7); Albumin/Globulin Ratio 1.4 (1.1-2.2); Alkaline Phosphatase 72 Units/L (34-104); Aspartate Amino Transferase 44 Units/L (13-39); BUN/Creatinine Ratio 11 (6-26); Bilirubin,Total 0.8 mg/dL (0.3-1.0); Blood Urea Nitrogen 11 mg/dL (6-20); Calcium 10.2 mg/dL (8.6-10.3); Carbon Dioxide 30 mEq/L (23-29); Chloride 100 mEq/L (98-107); Globulin 3.2 g/dL (2.4-3.5); Glucose 138 mg/dL (70-105); Osmolality,Calculated 286 (280-300); Potassium 3.5 mEq/L (3.5-5.1); Sodium 137 mEq/L (136-145); Total Protein 7.6 g/dL (6.4-8.9); eGFR For African Americans > 60 (> 60); eGFR For Non-African Americans > 60 (> 60)
[2017-08-11] MEDS ORDERED: *HR* Heparin 5,000 UNIT/ML VIAL IVP PRN (14:30)
[2017-08-11] MEDS ORDERED: Heparin 25,000 UNIT/500 ML D5W 25,000 UNIT/500 ML BAG IVC SCH ×2 (14:30→14:45)
[2017-08-11] MEDS ORDERED: *HR* Enoxaparin 100 MG/ML SYRINGE SQ STA (14:54)
[2017-08-11 16:01] LABS: Activated Partial Thrombo Time 31.4 Seconds (26.0-36.0)
[2017-08-11] MEDS ORDERED: *HR* Morphine 2 MG/ML SYRINGE IVP PRN (16:38)
[2017-08-11] MEDS ORDERED: Aspirin 325 MG TABLET PO ONE (16:38)
[2017-08-11] MEDS ORDERED: *HR* Morphine 2 MG/ML SYRINGE IVP ONE (16:52)
--- NOTE | 2017-08-11 17:07 | Internal Med History&Physical ---
<Cely Mccollum Livia - Last Filed: 08/11/17 17:04> Date of Encounter: 08/11/17 Time of Encounter: 17:04 Internal Medicine - H&P: HPI Chief complaint: Chest Pain Admitted From: Home Plans for Post Hospital Care: Home History of present illness: Mr. Villarreal is a 57 year old male with a history of OR in 2005 with 2 stents placed. Started having chest pain on Saturday. The pain about 5 out of 10 and sharp. Patient refused to come to the emergency room and decided today he would come due to nausea, diaphoresis, dyspnea, and left substernal radiating chest pain with exertion that radiated to his left shoulder. Patient's troponin on admission was 0.23 EKG showed sinus tach rate 101 left anterior fascicular block no acute no acute ST segment elevation. A dose of Lovenox 1 mg /kg subcutaneous was given in the ED will continue every 12 hours BP remains elevated with the exception of when one nitroglycerin was given patient's blood pressure became labile. Spoke with Dr. Willard who would like the patient to be nothing by mouth after midnight for possible heart catheter in the morning. Patient also indicated he has history of COPD, wheezes noted bilaterally particularly posterior mid lobes. Patient states he is dyspneic at home and has been for a while but has worsened over the past 4 days since having chest pain states he probably should be on home O2 but is not. Color is dusky O2 sat is 90%. Patient indicates he still has chest pain at this time will add Nitropaste every 6 hours and give a one-time dose of morphine. White blood cell count 19.2 possibly related to COPD flare. Will check UA and get blood cultures. Past Med Surg Social Fam HX - Past Medical History Medical history: coronary artery disease, hypertension, myocardial infarction, thyroid disease Psychiatric history: no psych history - Social History Smoking Status: Current every day smoker Smokeless Tobacco Status: No Alcohol use: occasionally Drug use: none - Family History Mother Family Member Ethnicity: Non- Hx Family Cardiac Disorders: Yes ([place]) Hx Family Endocrine Disorder: Yes ([place]) Father Family Member Ethnicity: Non- Hx Family Cardiac Disorders: Yes ([place]) Sister Family Member Ethnicity: Non- Hx Family Endocrine Disorder: Yes (DM) Internal Medicine - H&P: Meds Levothyroxine [Synthroid] 175 mcg PO DAILY 02/05/17 [History] Acetaminophen [Tylenol] 650 mg PO Q6HR PRN tablet 02/07/17 [Rx] Aspirin 81 mg PO DAILY tab.chew 02/07/17 [Rx] Metoprolol XL (24 HR) Succ [Toprol Xl] 25 mg PO DAILY #30 tab.er.24h 02/07/17 [ Rx] Nitroglycerin 0.4 mg SL Q5MIN PRN #25 tab.subl 02/07/17 [Rx] Ticagrelor [Brilinta] 90 mg PO BID #60 tablet 02/07/17 [Rx] Amlodipine Besylate 10 mg PO DAILY 08/11/17 [History] Ranolazine [Ranexa] 500 mg PO BID 08/11/17 [History] 3 Allergy/AdvReac Type Severity Reaction Status Date / Time No Known Allergies Allergy Verified 02/05/17 09:27 All Systems PM: A 10-system review of systems was performed and is negative for pertinent findings except as documented above in the HPI. - Constitutional Constitutional: no chills, no excessive sweating, no fever(s), no night sweats - EENT Eyes: no change in vision, no discharge, no pain, no photophobia Ears: no ear discharge, no ear pain, no tinnitus Nose, mouth and throat: no dysphagia, no nasal discharge, no neck pain, no sore throat - Cardiovascular Cardiovascular ROS IM: chest pain, diaphoresis, dyspnea, no lightheadedness, no palpitations, no syncope - Respiratory Respiratory: dyspnea, wheezing (On expiration), chest congestion, no cough, no excessive phlegm production - Gastrointestinal Gastrointestinal: no abdominal pain, no diarrhea, no hematemesis, no hematochezia, no melena, no nausea, no vomiting - Musculoskeletal Musculoskeletal ROS IM: no numbness, no tingling - Integumentary Integumentary IM: no rash, no unusual bruising - Neurological Neurological ROS: no confusion, no convulsions, no focal weakness, no numbness, no tingling, no tremor(s) - Hematologic/Lymphatic Hematologic/Lymphatic: no easy bruising - Constitutional Vitals: Temp Pulse Resp BP Pulse Ox 97.7 F 86 16 175/129 98 08/11/17 15:23 08/11/17 15:23 08/11/17 15:23 08/11/17 15:23 08/11/17 15:23 General appearance: Present: A&O X 3, severe distress (Currently having chest pain) - Head Head exam: Present: atraumatic, normocephalic - Eye Eye exam: Present: PERRL, conjuntiva pink, sclera anicteric Pupils: Present: PERRL - Neck Neck exam general surgery: Present: supple, trachea midline. Absent: lymphadenopathy - Respiratory Respiratory exam: Present: CTAB, wheezes. Absent: accessory muscle use, rales, rhonchi - Cardiovascular Cardiovascular exam: Present: RRR, +S1, +S2. Absent: diastolic murmur, gallop, rubs, systolic murmur - GI/Abdominal GI/Abdominal exam: Present: normal bowel sounds, soft, no peritoneal signs. Absent: distended, tenderness - Extremities Exam Extremities exam: Present: warm, radial pulses palpable and symmetrical. Absent : calf tenderness, cyanotic, pedal edema - Neurological Exam Neurological exam: Present: CN II-XII intact, oriented X3, no focal deficits. Absent: pronater drift, facial droop, speech deficit - Skin Skin exam: Present: dry, intact Internal Med - H&P Results - Labs CBC & Chem 7: 08/11/17 13:29 08/11/17 13:29 - Assessment and plan (1) Chest pain Current Visit: Yes Status: Acute Assessment and plan: Patient placed on nitroglycerin patch. We will get serial cardiac troponins. Consult to cardiology. Possible heart catheter in a.m. patient will remain nothing by mouth after midnight. Cardiac monitoring, Lovenox 1 mg/kg subcutaneous every 12 hours. Qualifiers: Chest pain type: unspecified Qualified Code(s): R07.9 - Chest pain, unspecified (2) Non-ST elevated myocardial infarction Current Visit: Yes Status: Acute Assessment and plan: Same as chest pain (3) Elevated troponin Current Visit: No Status: Acute Assessment and plan: Same as chest pain (4) Hypertension Current Visit: No Status: Acute Assessment and plan: Patient on nitroglycerin topical every 6 hours. We will add hydralazine when necessary if systolic BP stays greater than 160 Qualifiers: Hypertension type: essential hypertension Qualified Code(s): I10 - Essential (primary) hypertension (5) Tobacco abuse Current Visit: No Status: Chronic Assessment and plan: Discussed smoking cessation (6) Leukocytosis, unspecified Current Visit: Yes Status: Acute Assessment and plan: White blood cell count 19.3. Etiology unknown at this time will get UA, blood cultures, chest x-ray negative for acute disease Qualifiers: Leukocytosis type: unspecified Qualified Code(s): D72.829 - Elevated white blood cell count, unspecified (7) COPD (chronic obstructive pulmonary disease) Current Visit: Yes Status: Chronic Assessment and plan: Patient reports uses inhalers at home. Indicates dyspnea with exertion frequently. We will continue home meds, consult respiratory Qualifiers: COPD type: unspecified COPD Qualified Code(s): J44.9 - Chronic obstructive pulmonary disease, unspecified - Time Spent With Patient Total time spent is greater than 50% in coordination of care (as documented) at patient's floor/unit and/or counseling patient: <Nicholas Churchill P - Last Filed: 08/12/17 08:39> Date of Encounter: 08/12/17 Internal Medicine - H&P: HPI History of present illness: Mr. Villarreal is a 57 year old male All Systems PM: A 10-system review of systems was performed and is negative for pertinent findings except as documented above in the HPI. - Constitutional Vitals: Temp Pulse Resp BP Pulse Ox 97.8 F 66 15 147/99 97 08/12/17 07:29 08/12/17 07:29 08/12/17 07:29 08/12/17 07:29 08/12/17 07:29 Internal Med - H&P Results - Labs CBC & Chem 7: 08/12/17 01:39 08/12/17 01:39 Labs: Short CBC 08/12/17 Range/Units 01:39 WBC 8.2 (4.3-11.1) K/mcL Hgb 16.8 D (12.9-16.9) g/dL Hct 48.3 (37.5-50.1) % Plt Count 226 (140-400) K/mcL Neutrophils # 4.9 (1.6-8.9) K/mcL BMP 08/12/17 01:39 Sodium 137 Potassium 3.4 L Chloride 104 Carbon Dioxide 26 BUN 13 Creatinine 0.88 Glucose 113 H Calcium 9.0 Cardiac Enzymes 08/11/17 08/12/17 Range/Units 19:02 01:39 Troponin I 0.37 H* 0.47 H* (< 0.04) ng/mL Liver Function 08/12/17 Range/Units 01:39 Total Bilirubin 0.6 (0.3-1.0) mg/dL AST 28 (13-39) Units/L ALT 32 (7-52) Units/L Alkaline Phosphatase 55 (34-104) Units/L Albumin 3.5 (3.5-5.7) g/dL - Attending Attestation I examined this patient and my medical decision-making was reviewed with the Resident Physician. I agree with the documented findings, disposition and treatment plan as described except to the extent set forth below. agree with assessment and plan will follow cardiology recommendations. - Time Spent With Patient Total time spent is greater than 50% in coordination of care (as documented) at patient's floor/unit and/or counseling patient:
[2017-08-11] MEDS ORDERED: Acetaminophen 325 MG TABLET PO PRN (17:38)
[2017-08-11] MEDS: Nitroglycerin 1 INCH/GM PACKET TP SCH (17:42)
--- NOTE | 2017-08-11 20:08 | Event Note ---
<Cely Mccollum R - Last Filed: 08/11/17 20:11> Date of Encounter: 08/11/17 Time of Encounter: 20:08 Trop elevated up to 0.37. The patient denies chest pain at this time. Bp stable. Asked nursing to notify cardiology also. Plan for possible heart cath in am. <Nicholas Churchill P - Last Filed: 08/12/17 08:39> Date of Encounter: 08/12/17 I examined this patient and my medical decision-making was reviewed with the Resident Physician. I agree with the documented findings, disposition and treatment plan as described except to the extent set forth below. will follow cardiology recommendations. <Deidre Sung - Last Filed: 08/26/17 18:43> Date of Encounter: 08/26/17 Has been assigned to me in error. Deidre Sung
[2017-08-11] MEDS: *HR* Ticagrelor 90 MG TABLET PO SCH (20:19)
[2017-08-12 02:23] LABS: Alanine Aminotransferase 32 Units/L (7-52); Albumin 3.5 g/dL (3.5-5.7); Albumin/Globulin Ratio 1.3 (1.1-2.2); Alkaline Phosphatase 55 Units/L (34-104); Aspartate Amino Transferase 28 Units/L (13-39); BUN/Creatinine Ratio 15 (6-26); Bilirubin,Total 0.6 mg/dL (0.3-1.0); Blood Urea Nitrogen 13 mg/dL (6-20); Carbon Dioxide 26 mEq/L (23-29); Chloride 104 mEq/L (98-107); Globulin 2.7 g/dL (2.4-3.5); Glucose 113 mg/dL (70-105); Magnesium 1.8 mg/dL (1.6-2.6); Osmolality,Calculated 285 (280-300); Potassium 3.4 mEq/L (3.5-5.1); Sodium 137 mEq/L (136-145); Total Protein 6.2 g/dL (6.4-8.9); eGFR For African Americans > 60 (> 60); eGFR For Non-African Americans > 60 (> 60)
[2017-08-12 02:57] LABS: Prothrombin Time 11.1 Seconds (9.4-12.1)
[2017-08-12 03:06] LABS: Basophils # 0.1 K/mcL (0.0-0.2); Eosinophils # 0.2 K/mcL (0.0-0.6); Eosinophils % 2.7 %; Hematocrit 48.3 % (37.5-50.1); Immature Granulocytes % 0.5 % (0-4); Lymphocytes # 1.9 K/mcL (0.6-4.6); Lymphocytes % 23.5 %; Mean Corpuscular HGB Conc 34.8 g/dL (31.6-35.5); Mean Corpuscular Hemoglobin 35.3 pg (28.0-33.3); Mean Corpuscular Volume 101.5 fL (83.0-100.0); Mean Platelet Volume 9.6 fL (9.4-12.4); Neutrophils # 4.9 K/mcL (1.6-8.9); Platelet Count 226 K/mcL (140-400); Red Blood Count 4.76 M/mcL (4.19-5.50); Red Cell Distribution Width 12.8 % (11.5-14.5); Segmented Neutrophils % 60.3 %
[2017-08-12 03:12] LABS: Hemoglobin 16.8 g/dL (12.9-16.9)
[2017-08-12] MEDS: Nitroglycerin 1 INCH/GM PACKET TP SCH ×2 (05:33→11:11)
[2017-08-12] MEDS ORDERED: *HR* Enoxaparin 100 MG/ML SYRINGE SQ SCH (06:00)
[2017-08-12] MEDS: *HR* Ticagrelor 90 MG TABLET PO SCH ×2 (09:14→20:49)
[2017-08-12] MEDS: Aspirin 81 MG TAB.CHEW PO SCH (09:14)
[2017-08-12] MEDS: amLODIPine 5 MG TABLET PO SCH (09:14)
--- NOTE | 2017-08-12 10:24 | Cardiology Consult Note ---
Date of Encounter: 08/12/17 Time of Encounter: 09:30 Assessment and Plan (1) Non-ST elevated myocardial infarction Current Visit: Yes Status: Acute Per cardiology: -Admitted with chest pain with exertion. -Troponins 0.23, 0.37, 0.47, 0.4. -Denies current chest pain. -ON asa, brilinta, therapeutic lovenox. Not on statin due to intolerance. -TTE 02/2017 with 40% proximal LAD, 25% mid LAD, 50% diagonal 1, 90% OM with MIREYA placed, 95% mid RCA with MIREYA placed remaining 50% stenosis, 50% distal RCA. -Denies missed doses of asa or brilinta. -TTE 02/2017 with LVEF 60%, mild diastolic dysfunction, no segmental wall motion abnormalities. -Anticipate LHC. Risks versus benefits of LHC explained to patient and family. Patient states understanding and agreeable to proceed. -Will resume home beta anahi. (2) Tobacco abuse Current Visit: No Status: Chronic Per cardiology: -Known tobacco abuse. -Smoking cessation education provided. Discussion w patient/family: The assessment and plan as outlined above was discussed with the patient and/or family members who expressed understanding and agreement. All questions were answered. Thank you for involving us in the care of your patient. Please call with any questions. Discussed and reviewed with . History of Present Illness Consult date: 08/11/17 Requesting physician: Cely Mccollum Consult reason: chest pain, elevated troponin Chief complaint: chest pain History of present illness: Mr. Villarreal is a 57 year old male with a relevant past medical history of CAD s/ p PCI, HTN, tobacco abuse. Patient presented to [facility] with complaints of chest pain. Patient states over the past week has had intermittent chest pain with exertion. Patient reports pain relieved with rest. Patient also reports increases shortness of breath and increased fatigue over the past 2 weeks also. Denies current chest pain. Patient reports has not missed any doses of brilinta or aspirin. Past Med Surg Social Fam HX - Past Medical History Attestation: Yes The following information was validated with the patient. Source: patient, old records reviewed, obtained from family Medical history: coronary artery disease, hypertension, myocardial infarction, thyroid disease Psychiatric history: no psych history - Social History Smoking Status: Current every day smoker Smokeless Tobacco Status: No Alcohol use: occasionally Drug use: none - Family History Mother Family Member Ethnicity: Non- Hx Family Cardiac Disorders: Yes ([place]) Hx Family Endocrine Disorder: Yes (DM) Father Family Member Ethnicity: Non- Hx Family Cardiac Disorders: Yes ([place]) Sister Family Member Ethnicity: Non- Hx Family Endocrine Disorder: Yes (DM) Medications and Allergies Levothyroxine [Synthroid] 175 mcg PO DAILY 02/05/17 [History] Acetaminophen [Tylenol] 650 mg PO Q6HR PRN tablet 02/07/17 [Rx] Aspirin 81 mg PO DAILY tab.chew 02/07/17 [Rx] Metoprolol XL (24 HR) Succ [Toprol Xl] 25 mg PO DAILY #30 tab.er.24h 02/07/17 [ Rx] Nitroglycerin 0.4 mg SL Q5MIN PRN #25 tab.subl 02/07/17 [Rx] Ticagrelor [Brilinta] 90 mg PO BID #60 tablet 02/07/17 [Rx] Amlodipine Besylate 10 mg PO DAILY 08/11/17 [History] Ranolazine [Ranexa] 500 mg PO BID 08/11/17 [History] 3 Allergy/AdvReac Type Severity Reaction Status Date / Time No Known Allergies Allergy Verified 02/05/17 09:27 All Systems Review: The remainder of the systems were reviewed and are negative - Constitutional Constitutional: fatigue - Cardiovascular Cardiovascular: as per HPI, chest pain with exertion, dyspnea on exertion Physical Examination Vital Signs, Last 4 Hours Temp Pulse Resp BP Pulse Ox 08/12/17 07:29 97.8 F 66 15 147/99 97 General: Conversant, No Apparent Distress HEENT: Atraumatic, Normocephaly, Mucus Membranes Moist Neck: No JVD, Normal carotid pulses Cardiac: Reg Rate and Rhythm, Normal S1 and S2, No Murmur Lungs: Normal Breath Sounds, No Wheeze, Rales, Rhonchi Neuro: Alert and responsive, No focal deficits noted Abdomen: Soft, Non-Tender Skin: No rashes noted on visualized skin Musculoskeletal: No Chest Wall Tenderness Extremities: No Clubbing, No Cyanosis, No Edema, Normal Pulses Results 08/12/17 01:39 08/12/17 01:39 Lab Results Impressions Chest X-Ray 08/11/17 14:18 IMPRESSION: No acute process. D/ / Allen Green MD / Allen Green MD Interpreting Provider: Allen Green MD Active Medications Acetaminophen (Tylenol) 650 mg PO Q6HR PRN PRN Reason: Mild Pain Stop: 02/10/18 17:39 Amlodipine Besylate (Norvasc) 10 mg PO DAILY [facility] Stop: 02/11/18 09:01 Last Admin: 08/12/17 09:14 Dose: 10 mg Aspirin (Aspirin) 81 mg PO DAILY [facility] Stop: 02/11/18 09:01 Last Admin: 08/12/17 09:14 Dose: 81 mg Enoxaparin Sodium (Lovenox) 90 mg SQ Q12HCO ROMERO PRN Reason: Protocol Stop: 08/13/17 18:01 Last Admin: 08/12/17 05:34 Dose: 90 mg Levothyroxine Sodium (Synthroid) 175 mcg PO 0630 [facility] Stop: 02/11/18 06:31 Last Admin: 08/12/17 09:19 Dose: 175 mcg Morphine Sulfate (Morphine Sulfate) 2 mg IVP Q4HR PRN PRN Reason: Chest Pain Stop: 02/10/18 20:01 Nitroglycerin (Nitroglycerin) 0.4 mg SL Q5MIN PRN PRN Reason: Chest Pain Stop: 02/10/18 13:31 Last Admin: 08/11/17 13:41 Dose: 0.4 mg Nitroglycerin (Nitroglycerin) 0.5 inch TP Q6HNTG [facility] Stop: 02/10/18 17:01 Last Admin: 08/12/17 05:33 Dose: 0.5 inch Ticagrelor (Brilinta) 90 mg PO BID [facility] Stop: 02/10/18 21:01 Last Admin: 08/12/17 09:14 Dose: 90 mg Laboratory Tests 08/11/17 08/11/17 08/12/17 13:30 19:02 01:39 Hgb Creatinine Troponin I 0.23 H* 0.37 H* 0.47 H* 08/12/17 08/12/17 08/12/17 01:39 01:39 07:45 Hgb 16.8 D Creatinine 0.88 Troponin I 0.40 H* - Imaging and Cardiology Chest Xray: report reviewed Echo: report reviewed Cardiac cath: report reviewed - EKG Interpretation EKG results cardiology: personally reviewed (ECG with ST, HR 101.), other ( Telemetry reviewed with average HR previous 12 hours noted to be 65, SR. PACS noted.) Consult Discharge Plan - Plan Referrals: Cliff Junior MD [Primary Care Provider] -
[2017-08-12] MEDS: Metoprolol XL (24 HR) Succ 25 MG TAB.ER.24H PO SCH (11:11)
[2017-08-12] MEDS ORDERED: 0.9 % Sodium Chloride 1,000 ML ONE ×2 (14:13→14:29)
[2017-08-12] MEDS ORDERED: Nitroglycerin 1,000 MCG/10 ML VIAL IV ONE (14:14)
[2017-08-12] MEDS ORDERED: Heparin 1,000 UNITS/500 mL 500 ML ONE (14:14)
[2017-08-12] MEDS ORDERED: *HR* Heparin 10,000 UNIT/10 ML VIAL ONE (14:14)
[2017-08-12] MEDS ORDERED: ISOVUE-370 200 ML INFUS..BTL IV ONE ×2 (14:14→14:54)
[2017-08-12] MEDS ORDERED: *HR* Midazolam HCl 2 MG/2 ML VIAL ONE (14:29)
[2017-08-12] MEDS ORDERED: *HR* FentaNYL (PF) 100 MCG/2 ML VIAL ONE (14:29)
--- NOTE | 2017-08-12 14:37 | Pre-Sedation Evaluation ---
Pre-sedation evaluation - Pre-sedation checklist Date of procedure: 08/12/17 Procedure: left heart cath Recent Vitals: Last Vital Signs Temp 98.2 F 08/12/17 11:41 Pulse 66 08/12/17 11:41 Resp 15 08/12/17 11:41 BP 166/93 08/12/17 11:41 Pulse Ox 98 08/12/17 11:41 H&P (including ROS) documented in medical record: Yes Previous reaction to sedatives/anesthetics: No Dietary Status: NPO after Midnight Dentition: No loose teeth or bridges, dentures removed ASA Classification *see protocol: CLASS II-Mild systemic disease
[2017-08-12] MEDS ORDERED: Tirofiban 12.5 MG/250ML 12.5 MG/250 ML BAG ONE (14:54)
[2017-08-12] MEDS ORDERED: Tirofiban 12.5 MG/250ML 12.5 MG/250 ML BAG IVC SCH (16:00)
--- NOTE | 2017-08-12 16:19 | Internal Med Progress Note ---
Date of Encounter: 08/12/17 Time of Encounter: 16:15 - Assessment and plan (1) Non-ST elevated myocardial infarction Current Visit: Yes Status: Acute Assessment and plan: presented with chest pain on exertion. Serial troponins 0.23, 0.37, 0.47, 0.4. Has known CAD with recent PCI 02/2017. 08/12/17 [facility] with successful PTCA/Drug- Eluting Stent placement in the proximal 1st diagonal; previous stent in Mid RCA with moderate in-stent stenosis that was, not intervened on. Continue ASA, Brilinta. No statin due to intolerance. Cardiology following (2) COPD (chronic obstructive pulmonary disease) Current Visit: Yes Status: Chronic Assessment and plan: per hx. current smoker. Suspect mild exacerbation with nonproductive cough and wheezing on exam. Afebrile, no elevated WBC. Hold on ATB at this time. Steroid burst, bronchodilators. Qualifiers: COPD type: unspecified COPD Qualified Code(s): J44.9 - Chronic obstructive pulmonary disease, unspecified (3) CAD (coronary artery disease) Current Visit: No Status: Acute Assessment and plan: per hx. plan as noted above. Qualifiers: Coronary Disease-Associated Artery/Lesion type: [place] artery [place] vs. transplanted heart: [place] heart Associated angina: angina presence unspecified Qualified Code(s): I25.10 - Atherosclerotic heart disease of [place] coronary artery without angina pectoris (4) Hypertension Current Visit: No Status: Acute Assessment and plan: per hx. BP not well-controlled. BB added per cardiology. Continue home amlodipine. Monitor BP and titrate PRN Qualifiers: Hypertension type: essential hypertension Qualified Code(s): I10 - Essential (primary) hypertension (5) DVT prophylaxis Current Visit: No Status: Acute Assessment and plan: SCD - Time Spent With Patient Total time spent is greater than 50% in coordination of care (as documented) at patient's floor/unit and/or counseling patient: - Subjective Interval history: Seen and examined at bedside. He is still in the [employer] recovering. Reportedly received 1 stent. Complains of some bilateral shoulder discomfort. Denies chest pain. Has some shortness of breath with a nonproductive cough. - Constitutional Vitals: Temp Pulse Resp BP Pulse Ox 98.2 F 66 15 166/93 98 08/12/17 11:41 08/12/17 11:41 08/12/17 11:41 08/12/17 11:41 08/12/17 11:41 General appearance: Present: A&O X 3, morbidly obese, no acute distress, severe distress (Currently having chest pain) - Head Head exam: Present: atraumatic, normocephalic - Eye Eye exam: Present: PERRL, conjuntiva pink, sclera anicteric Pupils: Present: PERRL - Neck Neck exam general surgery: Present: supple, trachea midline. Absent: lymphadenopathy - Respiratory Respiratory exam: Present: CTAB, wheezes. Absent: accessory muscle use, rales, rhonchi - Cardiovascular Cardiovascular exam: Present: RRR, +S1, +S2. Absent: diastolic murmur, gallop, rubs, systolic murmur - GI/Abdominal GI/Abdominal exam: Present: normal bowel sounds, soft, no peritoneal signs. Absent: distended, tenderness - Extremities Exam Extremities exam: Present: warm, radial pulses palpable and symmetrical. Absent : calf tenderness, cyanotic, pedal edema - Neurological Exam Neurological exam: Present: CN II-XII intact, oriented X3, no focal deficits. Absent: pronater drift, facial droop, speech deficit - Skin Skin exam: Present: dry, intact Internal Medicine: Result - Labs CBC & Chem 7: 08/12/17 01:39 08/12/17 01:39 Labs: Short CBC 08/12/17 Range/Units 01:39 WBC 8.2 (4.3-11.1) K/mcL Hgb 16.8 D (12.9-16.9) g/dL Hct 48.3 (37.5-50.1) % Plt Count 226 (140-400) K/mcL Neutrophils # 4.9 (1.6-8.9) K/mcL BMP 08/12/17 01:39 Sodium 137 Potassium 3.4 L Chloride 104 Carbon Dioxide 26 BUN 13 Creatinine 0.88 Glucose 113 H Calcium 9.0 Cardiac Enzymes 08/11/17 08/12/17 08/12/17 Range/Units 19:02 01:39 07:45 Troponin I 0.37 H* 0.47 H* 0.40 H* (< 0.04) ng/mL Liver Function 08/12/17 Range/Units 01:39 Total Bilirubin 0.6 (0.3-1.0) mg/dL AST 28 (13-39) Units/L ALT 32 (7-52) Units/L Alkaline Phosphatase 55 (34-104) Units/L Albumin 3.5 (3.5-5.7) g/dL - ABG Interpretation ABG results: PT/INR, D-dimer PT 11.1 Seconds (9.4-12.1) 08/12/17 01:39 Consult Discharge Plan - Plan Referrals: Cliff Junior MD [Primary Care Provider] -
--- NOTE | 2017-08-12 17:02 | Invasive Diagnostic Lab Proc ---
Name: Jatin Villarreal Date of Study: 08/12/2017 Date: 1960 Ht: 66.1in Medical Record#: [id number] Age: 57 Wt: 200.62lb Gender: Male BSA: 2.01 Order #: [id number] BMI: 32.24 Physicians Procedure Physician: Leslee Dumont MD Referring MD: Referring MD: Staff Name Position Time In Alana Mary Ellen RN Monitor 02:26 PM Cely Francisco RN Pain Coordinator 02:28 PM Cheyenne Benavides RN Pain Coordinator 02:28 PM Ximena Hennessy RT (R) Scrub 02:28 PM Indications Indication Non-Stemi Procedures Performed Procedure L HRT ARTERY/VENTRICLE ANGIO PRQ CARD MIREYA STENT W/ANGIO 1 VSL Pre-Procedure Checklist Informed consent is complete signed and on chart. H&P is on chart. ID band is on and ID verified with patient. Patient NPO for procedure The procedure was described for the patient and questions were answered. Blood Pressure: 166/93 ECG is on chart. Rhythm: NSR Plan of Care Patient will tolerate the procedure without complications. Adequate level of comfort will be maintained. Hemodynamics will remain stable Patient will recover from procedure without complications. Respiratory function will be maintained. Cardiac rhythm will remain stable. Patient temperature will be maintained. Patient and/or family have verbalized understanding of the procedure. Patient Education Chief Complaint/Reason for Test: Cardiac Cath Developmental Category: Adult (18-64 years) Developmentally Appropriate for Age: Yes Learning Barriers: None Education Needs: Procedure Education Method: Verbal Information Taught: Cardiac Cath Educational Evaluation: Able to repeat information Intravenous Access Time IV Size Location DC'd Fluid/Drip Rate Units RN 12:30 PM 20g 1 /" Patent On Arrival Rt Antecubital Cely Francisco RN Allergies No Known Allergies Vital Signs Time BP (mmHg) HR (bpm) O2 Sat. RR (bpm) LOC 12:30 PM 166 / 93 66 98 % 15 5 = Fully awake and oriented or at pre-proc level 02:42 PM / % 5 = Fully awake and oriented or at pre-proc level 02:42 PM / % 4 = Oriented but drowsy 02:57 PM / % 4 = Oriented but drowsy 02:33 PM 190 / 115 65 % 02:37 PM 156 / 98 71 97 % 02:42 PM 151 / 99 69 98 % 02:47 PM 135 / 83 74 97 % 02:52 PM 125 / 71 76 96 % 02:58 PM 133 / 88 67 97 % 03:02 PM 147 / 94 68 96 % 03:07 PM 161 / 103 71 97 % 03:12 PM 166 / 99 66 96 % 03:17 PM 168 / 102 65 97 % 03:12 PM / % 4 = Oriented but drowsy 03:30 PM 158 / 119 61 96 % 18 5 = Fully awake and oriented or at pre-proc level 03:45 PM 166 / 104 68 96 % 18 5 = Fully awake and oriented or at pre-proc level 04:00 PM 146 / 90 65 96 % 16 5 = Fully awake and oriented or at pre-proc level 04:15 PM 147 / 121 68 97 % 16 5 = Fully awake and oriented or at pre-proc level 04:30 PM 166 / 101 72 96 % 16 5 = Fully awake and oriented or at pre-proc level 04:45 PM 122 / 98 73 96 % 16 5 = Fully awake and oriented or at pre-proc level 04:55 PM 133 / 82 68 98 % 16 5 = Fully awake and oriented or at pre-proc level Procedural Medications Time Medication Dose Units Method Given By 02:35 PM Oxygen 2 L/min nasal cannula Cheyenne Benavides RN 02:35 PM Versed 1 mg Intravenous Cheyenne Benavides RN 02:35 PM Fentanyl 50 mcg Intravenous Cheyenne Benavides RN 02:41 PM Versed 1 mg Intravenous Cely Francisco RN 02:41 PM Fentanyl 50 mcg Intravenous Cely Francisco RN 02:42 PM Lidocaine 2% 10 ml Subcutaneous Leslee Dumont MD 02:55 PM Heparin 3500 units Intravenous Cheyenne Benavides RN 02:56 PM Aggrastat Bolus: 46 ml Intravenous Cely Francisco RN 02:56 PM Aggrastat 12.5mg/250ml 16.5 ml/hr Intravenous Cely Francisco RN ASA Classification: CLASS II- Mild systemic disease (i.e. well-controlled diabetes, hypertension, asthma, cigarette smoking) Tosin Score Preprocedure Postprocedure Activity 2- Moves 4 extremities sustained head lift Activity 2- Moves 4 extremities sustained head lift Circulation 2- SBP +/= 20 points of pre-anesthetic level Circulation 2- SBP +/= 20 points of pre-anesthetic level Consciousness 2- Awake and alert oriented x 3 Consciousness 2- Awake and alert oriented x 3 O2 Saturation 2- Able to maintain O2 satruation of 92% on room air O2 Saturation 2- Able to maintain O2 satruation of 92% on room air Respiratory 2- Able to deep breathe and cough well Respiratory 2- Able to deep breathe and cough well Total Score 10 Total Score 10 Contrast Agent: Isovue Diagnostic Contrast: 194 ml Total Contrast: 194 ml Fluoro Dose: 721 mGy Activated Clotting Time Time Seconds to Clot 03:19 PM 235 Procedure Log Time Note Enter By 02:26 PM 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 Bilateral groin prepped with Chloraprep by Mary Ellen Warner RN, then patient was draped. Skin intact. 02:28 PM Physicgigi paged/called 14:28. ou 02:28 PM Physicgigi responded and notified patient is ready 14:28 mm:28 PM Physician arrived 14:28 :28 PM Meet and greet completed 02:28 PM Sign in performed according to hospital policy. oumm 02:28 PM Procedure start 14:28 oumm 02:28 PM CathStat 02:30 PM Vitals capture started with the following parameters, Patient=Adult, Interval=5 min, Initial Yhtavwsm=732 mmHg, Deflation Rate=5 mmHg, Cuff placed on Right Arm 02:30 PM Recorded ECG: HR=66 Condition=Condition 1 02:31 PM Vitals capture stopped. 02:31 PM Vitals capture started with the following parameters, Patient=Adult, Interval=5 min, Initial Dccokuzf=650 mmHg, Deflation Rate=5 mmHg, Cuff placed on Right Arm 02:33 PM HR=65 bpm, PJTH=587/115 mmhg, Comment=NSR 02:35 PM Recorded ECG: HR=68 Condition=Condition 1 02:35 PM Time: 14:35 Oxygen on at 2 L/min per nasal cannula by Cheyenne Benavides RN 02:35 PM Time: 14:35 Versed 1 mg Intravenous Given by Cheyenne Benavides RN 02:35 PM Time: 14:35 Fentanyl 50 mcg Intravenous Given by Cheyenne Benavides RN 02:37 PM HR=71 bpm, UTMB=724/98 mmhg, SpO2=97.0 %, Comment=NSR 02:40 PM ASA Class CLASS II- Mild systemic disease (i.e. well-controlled diabetes, hypertension, asthma, cigarette smoking) [facility] 02[facility] PM Time: 14:41 Versed 1 mg Intravenous Given by Cely Francisco RN 02:41 PM Time: 14:41 Fentanyl 50 mcg Intravenous Given by Cely Francisco RN 02:42 PM Time: 14:42 Patient comfortable and pain free: Yes mmstacy 02:42 PM Time: 14:42LOC: 5 = Fully awake and oriented or at pre-proc level mmstacy 02:42 PM Clinical Presentation: [facility] 02[facility] PM Time out performed according to hospital policy [facility] 02:42 PM Time: 14:42 10 ml Lidocaine 2% to right groin Subcutaneous Given by Leslee Dumont MD [email or web address] 02:42 PM Micro-Introducer Kit utilized for sheath [facility] 02:42 PM HR=69 bpm, XXTD=570/99 mmhg, SpO2=98.0 %, Comment=NSR 02:43 PM Pressure channel 1 zeroed. 02:46 PM Access obtained by percutaneous puncture. 6Fr 10cm Terumo [place] sheath placed in right Femoral artery. [id number] [facility] 02:46 PM 0.035 145cm Navilyst 3mmJ wire [id number] [facility] 02:46 PM 5Fr FR 4 catheter inserted over the wire tsoummers 02:47 PM J wire removed tsoummers 02:47 PM HR=74 bpm, EQHA=397/83 mmhg, SpO2=97.0 %, Comment=NSR 02:47 PM RCA angiography performed in multiple views. tsoummers 02:47 PM Coronary Dominance: right tsoummers 02:48 PM Recorded Pressure: Ao, HR=65, Condition=Condition 1 (Aorta) Ao 100/79/89 02:48 PM Catheter removed tsoummers 02:48 PM 5Fr FL 4 catheter inserted over the wire [facility] tsoummers 02:49 PM LCA angiography performed in multiple views. tsoummers 02:49 PM Recorded Pressure: Ao, HR=63, Condition=Condition 1 (Aorta) Ao 122/87/103 02:51 PM Catheter removed tsoumm 02:51 PM 5Fr Pigtail catheter inserted over the wire [facility] tsoumm 02:51 PM Catheter selectively placed in left ventricle tsoummers 02:52 PM Bolus angiogram of left Ventricle complete: 10 ml/sec for a total of 20 mls tsoummers 02:52 PM Recorded Pressure: LV, HR=62, Condition=Condition 1 (Left Ventricle) LV 105/18/18 02:52 PM HR=76 bpm, TSKV=315/71 mmhg, SpO2=96.0 %, Comment=NSR 02:52 PM Recorded Pressure: LV, Ao, HR=66, Condition=Condition 1 (Left Ventricle) LV 113/22/25, (Aorta) Ao 112/80/98 02:53 PM Catheter removed tsoummers 02:53 PM 6Fr XB LAD 3.5 [place] Bright-Tip guide catheter was used to cannulate the PCI vessel successfully. reused? No tsoummers 02:53 PM Inflation device was opened. tsoummers 02:54 PM Lesion found in 1st Diagonal. Pre Stenosis: 95 Pre BISHNU Flow: 3: Complete and Brisk Flow/Perfusion tsoummers 02:54 PM Mid/Distal Left Anterior Descending Coronary Artery and diagonal branches with 95% stenosis. If graft is supplying this area, 0 % stenosis tsoummers 02:55 PM Time: 14:55 Heparin 3500 units Intravenous Given by Cheyenne Benavides RN tsoummers 02:56 PM Recorded Pressure: Ao, HR=62, Condition=Condition 1 (Aorta) Ao 114/83/96 02:56 PM Time: 14:56 Aggrastat Bolus: 46 ml Intravenous Given by Cely Francisco RN Chance pump oumm 02:57 PM Time: 14:56 Aggrastat 12.5mg/250ml 16.5 ml/hr Intravenous Given by Cely Francisco RN Chance pump tsoumm 02:57 PM Time: 14:42LOC: 4 = Oriented but drowsy tsoumm 02:57 PM Time: 14:42 Patient comfortable and pain free: Yes tsoummers 02:57 PM .014 [employer] [place] 190cm guide wire across target lesion- successful. reused? No tsoummers 02:58 PM HR=67 bpm, VVEI=247/88 mmhg, SpO2=97.0 %, Comment=NSR 02:59 PM 2.0 mm x 20 mm [employer] balloon across target lesion- successful. reused? No tsoumm 03:00 PM Balloon inflated @ 6 bill for 12 seconds tsoummers 03:01 PM Balloon inflated @ 6 bill for 10 seconds tsoummers 03:02 PM Balloon inflated @ 8 bill for 20 seconds tsoummers 03:02 PM HR=68 bpm, FYTW=824/94 mmhg, SpO2=96.0 %, Comment=NSR 03:03 PM Balloon inflated @ 10 bill for 20 seconds tsoummers 03:03 PM Balloon inflated @ 10 bill for 22 seconds tsoummers 03:07 PM HR=71 bpm, NYWA=326/103 mmhg, SpO2=97.0 %, Comment=NSR 03:08 PM Balloon catheter removed intact. tsoummers 03:10 PM 2.25mm x 8mm Synergy drug-eluting stent across target lesion- successful Lot #[id number] tsoummers 03:10 PM Stent deployed @ 9 bill for 11 seconds tsoummers 03:10 PM Stent balloon reinflated @ 11 bill for 8 seconds tsoummers 03:11 PM Stent balloon inflated @ 6 bill for 13 seconds tsoummers 03:12 PM Stent delivery system removed intact. tsoummers 03:12 PM Guide wire removed intact. tsoummers 03:12 PM Recorded Pressure: Ao, HR=65, Condition=Condition 1 (Aorta) Ao 161/98/123 03:12 PM Time: 14:57 Patient comfortable and pain free: Yes tsmmers 03:12 PM Time: 14:57LOC: 4 = Oriented but drowsy tsoummers 03:12 PM HR=66 bpm, KWNY=737/99 mmhg, SpO2=96.0 %, Comment=NSR 03:12 PM Guide catheter removed intact. tsoummers 03:16 PM Spoke with Za from bed management at this time. She reports no 2N beds available for pt. Pt will be held in holding room until sheath is pulled or 2N bed becomes available. tsoummers 03:17 PM HR=65 bpm, IPZO=925/102 mmhg, SpO2=97.0 %, Comment=NSR 03:17 PM Procedure completed at 15:17 tsoummers 03:18 PM Did you address BISHNU flow and Dominance? Yes tsoummers 03:18 PM Sign out completed: Radiation Dose 721.41 mGy Fluoro Time: 8.0 Isovue 370 - 200ml contrast 194.5 ml given by Leslee Dumont MD. Complications: NoneCardiac Rehab Consult needed: YesConfirmed administered medications: Yes oummers 03:18 PM Isovue 370 - 200ml,2 Bottle(s) used. tsoummers 03:19 PM Sheath left in place to be pulled on floor/holding area tsoummers 03:19 PM Estimated Blood Loss: less than 20cc tsoummers 03:19 PM Post ECG NSR tsoummers 03:19 PM Post Blood Pressure 168/102 tsoummers 03:19 PM Information taught Cardiac Cath and PCI tsoummers 03:19 PM Education needs Procedure, Plan of Care, and Responsibilities of Patient in Care tsoummers 03:19 PM Learning barriers :None tsoummers 03:19 PM Education Methods Verbal tsoummers 03:19 PM Education evaluation Able to repeat information tsoummers 03:19 PM Site status No bleeding/hematoma - Rt Groin as reported by Ximena Hennessy RT (R) at 15:19 tsoummers 03:19 PM Opsite applied tsoummers 03:19 PM Plavix, Effient or Brilinta given . 90mg Brilinta given this am tsoummers 03:19 PM Delay to floor Bed availability tsoummers 03:19 PM Family placed in consult room. tsoummers 03:19 PM Complications: None [facility] 03:19 PM At 15:19 the ACT was 235 seconds. [facility] 03:20 PM Fluoro Time: 8 [facility] 03:20 PM Isovue 370 - 200ml contrast 194.[address] Dumont. [facility] 03:20 PM Radiation Dose 721.41 mGy [facility] 03:26 PM Lesion found in Mid RCA. Pre Stenosis: 60 Pre BISHNU Flow: [facility] 03:27 PM Lesion found in Mid LAD. Pre Stenosis: 65 Pre BISHNU Flow: [facility] 03:27 PM Time: 15:12LOC: 4 = Oriented but drowsy [facility] 03:27 PM Time: 15:12 Patient comfortable and pain free: Yes [facility] 03:28 PM Right Coronary, Right Posterior Descending Arteries with Right Posterolateral and Acute Marginal branches with 60 % stenosis. If graft is supplying this area, 0 % stenosis [facility] 03:30 PM Received patient to holding area room 3. monitors applied [facility] 03:[address] Dumont aware BP 166/104. Hydralazine ordered mprater 03:49 PM Hydralazine 10mg IV mprater 04:00 PM BP 146/90 mprater 04:28 PM Arterial sheath pulled using manual compression and V+ Pad for 16 minutes by Celsa Castro RN [facility] 04:40 PM Hydralazine 10mg IV [email or web address] 04:49 PM Report given to Winifred COOK Pt taken to Room #55. 16:49 [email or web address] 04:56 PM patient transfered to mprater Hemodynamics Pressures Site Systolic/A Wave Diastolic/V Wave Mean AO 100 79 89 AO 122 87 103 LV 105 18 18 LV 113 22 25 AO 112 80 98 AO 114 83 96 AO 161 98 123 Post Procedure Information Blood Pressure: 168/102 mmHg Rhythm: NSR Post procedural instructions were given Site Checks Time Location Status Staff Sheath In? Note 03:19 PM Rt Groin No bleeding/hematoma Ximena Hennessy RT (R) 03:30 PM Rt Groin No bleeding/ No Hematoma Cely Francisco RN Yes 03:45 PM Rt Groin No bleeding/ No Hematoma Celsa Castro RN Yes 04:00 PM Rt Groin No bleeding/ No Hematoma Gloria, Celsa D RN Yes 04:15 PM Rt Groin No bleeding/ No Hematoma Celsa Castro RN Yes 04:30 PM Rt Groin No bleeding/ No Hematoma Celsa Castro RN 04:45 PM Rt Groin No bleeding/ No Hematoma Celsa Castro RN 04:55 PM Rt Groin No bleeding/ No Hematoma Celsa Castro RN Pulses Time Site Pre-Procedure Post-Procedure Note 08/12/2017 12:30:00 PM Bilateral radial 2+ 08/12/2017 12:30:00 PM Bilateral DP 1+ 08/12/2017 3:30:00 PM Bilateral DP & PT 1+ 08/12/2017 4:00:00 PM Bilateral DP & PT 1+ 08/12/2017 4:45:00 PM Bilateral DP & PT 1+ 08/12/2017 4:45:00 PM Bilateral DP & PT 1+ Updated by Celsa Castro RN on 08/12/2017 4:57:01 PM Celsa Castro RN electronically signed on 08/12/2017 4:57:35 PM with status of Final
[2017-08-12] MEDS: predniSONE 20 MG TABLET PO SCH (18:00)
[2017-08-12] MEDS: Ipratropium/Albuterol Neb 3 ML IH SCH ×2 (20:24→23:44)
[2017-08-13] MEDS: Ipratropium/Albuterol Neb 3 ML IH SCH ×3 (03:40→11:14)
[2017-08-13] MEDS: Nitroglycerin 1 INCH/GM PACKET TP SCH ×2 (05:40→12:17)
[2017-08-13 07:30] LABS: BUN/Creatinine Ratio 13 (6-26); Blood Urea Nitrogen 11 mg/dL (6-20); eGFR For African Americans > 60 (> 60); eGFR For Non-African Americans > 60 (> 60)
[2017-08-13 07:34] LABS: BUN/Creatinine Ratio 13 (6-26); Blood Urea Nitrogen 11 mg/dL (6-20); Calcium 9.5 mg/dL (8.6-10.3); Carbon Dioxide 21 mEq/L (23-29); Chloride 107 mEq/L (98-107); Glucose 144 mg/dL (70-105); Osmolality,Calculated 288 (280-300); Potassium 4.3 mEq/L (3.5-5.1); Sodium 138 mEq/L (136-145); eGFR For African Americans > 60 (> 60); eGFR For Non-African Americans > 60 (> 60)
[2017-08-13 07:52] LABS: Hematocrit 49.7 % (37.5-50.1); Hemoglobin 17.6 g/dL (12.9-16.9)
[2017-08-13 07:53] LABS: Hematocrit 48.9 % (37.5-50.1); Mean Corpuscular HGB Conc 34.8 g/dL (31.6-35.5); Mean Corpuscular Hemoglobin 35.4 pg (28.0-33.3); Mean Corpuscular Volume 101.9 fL (83.0-100.0); Mean Platelet Volume 9.8 fL (9.4-12.4); Platelet Count 232 K/mcL (140-400)
[2017-08-13] MEDS: amLODIPine 5 MG TABLET PO SCH (09:32)
[2017-08-13] MEDS: Aspirin 81 MG TAB.CHEW PO SCH (09:32)
[2017-08-13] MEDS: Metoprolol XL (24 HR) Succ 25 MG TAB.ER.24H PO SCH (09:32)
[2017-08-13] MEDS: predniSONE 20 MG TABLET PO SCH (09:32)
[2017-08-13] MEDS: *HR* Ticagrelor 90 MG TABLET PO SCH (09:32)
--- NOTE | 2017-08-13 09:37 | Cardiology Progress Note ---
Date of Encounter: 08/13/17 Time of Encounter: 09:00 Assessment and Plan (1) Non-ST elevated myocardial infarction Current Visit: Yes Status: Acute Per cardiology: -Admitted with chest pain with exertion. -Troponins 0.23, 0.37, 0.47, 0.4. -S/p [facility] yesterday with MIREYA Placed to diagonal 1. Has remaining moderate CAD. -Denies current chest pain. -ON asa, brilinta, BB. Not on statin due to intolerance. -TTE 02/2017 with LVEF 60%, mild diastolic dysfunction, no segmental wall motion abnormalities. -Educated on importance of dual anti-platelet therapy uninterrupted for at least one year. Patient states understanding. -Right groin access site management education reviewed with patient. -Cardiology will sign off and will follow in outpatient setting. Follow up set. (2) Tobacco abuse Current Visit: No Status: Chronic Per cardiology: -Known tobacco abuse. -Smoking cessation education provided. Discussion w patient/family: The assessment and plan as outlined above was discussed with the patient who expressed understanding and agreement. All questions were answered. Thank you for involving us in the care of your patient. Please call with any questions. Discussed and reviewed with . Subjective Principal diagnosis: NSTEMI Interval history: Patient is s/p [facility] yesterday with MIREYA placed. Denies chest pain. Denies shortness of breath. Denies issues using right leg or walking. Objective Vital Signs, Last 4 Hours Temp Pulse Resp BP Pulse Ox 08/13/17 07:32 18 94 08/13/17 07:11 98.7 F 72 14 128/84 93 General: Conversant, No Apparent Distress HEENT: Atraumatic, Normocephaly, Mucus Membranes Moist Neck: No JVD, Normal carotid pulses Cardiac: Reg Rate and Rhythm, Normal S1 and S2, No Murmur Lungs: Normal Breath Sounds, No Wheeze, Rales, Rhonchi Neuro: Alert and responsive, No focal deficits noted Abdomen: Soft, Non-Tender Skin: No rashes noted on visualized skin, Other (Right groin access site without hematoma or ecchymosis. ) Musculoskeletal: No Chest Wall Tenderness Extremities: No Clubbing, No Cyanosis, No Edema, Normal Pulses Results 08/13/17 06:48 08/13/17 06:48 Lab Results Active Medications Acetaminophen (Tylenol) 650 mg PO Q6HR PRN PRN Reason: Mild Pain Stop: 02/10/18 17:39 Albuterol/Ipratropium (Duoneb) 3 ml IH Q4UTFKN [facility] Stop: 02/11/18 20:01 Last Admin: 08/13/17 07:29 Dose: 3 ml Amlodipine Besylate (Norvasc) 10 mg PO DAILY [facility] Stop: 02/11/18 09:01 Last Admin: 08/13/17 09:32 Dose: 10 mg Aspirin (Aspirin) 81 mg PO DAILY [facility] Stop: 02/11/18 09:01 Last Admin: 08/13/17 09:32 Dose: 81 mg Enoxaparin Sodium (Lovenox) 90 mg SQ Q12HCO [facility] PRN Reason: Protocol Last Admin: 08/12/17 05:34 Dose: 90 mg Levothyroxine Sodium (Synthroid) 175 mcg PO 0630 [facility] Stop: 02/11/18 06:31 Last Admin: 08/13/17 06:50 Dose: 175 mcg Metoprolol Succinate (Toprol Xl) 25 mg PO DAILY [facility] Stop: 02/11/18 10:46 Last Admin: 08/13/17 09:32 Dose: 25 mg Morphine Sulfate (Morphine Sulfate) 2 mg IVP Q4HR PRN PRN Reason: Chest Pain Stop: 02/10/18 20:01 Nitroglycerin (Nitroglycerin) 0.4 mg SL Q5MIN PRN PRN Reason: Chest Pain Stop: 02/10/18 13:31 Last Admin: 08/11/17 13:41 Dose: 0.4 mg Nitroglycerin (Nitroglycerin) 0.5 inch TP Q6HNTG [facility] Stop: 02/10/18 17:01 Last Admin: 08/13/17 05:40 Dose: Not Given Prednisone (Prednisone) 40 mg PO DAILY [facility] Stop: 02/11/18 16:31 Last Admin: 08/13/17 09:32 Dose: 40 mg Ticagrelor (Brilinta) 90 mg PO BID [facility] Stop: 02/10/18 21:01 Last Admin: 08/13/17 09:32 Dose: 90 mg Laboratory Tests 08/13/17 08/13/17 06:48 06:48 Hgb 17.6 H Creatinine 0.83 - Imaging and Cardiology Chest Xray: report reviewed Echo: report reviewed Cardiac cath: report reviewed - EKG Interpretation EKG results cardiology: other (Telemetry reviewed with average HR previous 12 hours noted to be 68, SR. PVCs and PACS noted.) Consult Discharge Plan - Plan Referrals: Cliff Junior MD [Primary Care Provider] -
[2017-08-13 11:21] VITALS: BP 122/79
--- NOTE | 2017-08-13 13:44 | Discharge Summary ---
- NOTES TO OUTPATIENT PROVIDER Notes to Outpatient Provider: S/p C with MIREYA to diagonal 1 cont dual anti- platlet therapy - follow up with cardiology Orders not resulted at time of discharge: Pending orders 08/11/17 17:36 UA w. reflex culture [Urinalysis Reflex Cult & Micro] [URIN] Routine 08/11/17 19:02 Culture,Blood [BC] Routine 08/12/17 15:59 ECG 12 lead ECG [ECG] Stat 08/13/17 06:00 ECG 12 lead ECG [ECG] AM 0608/14/17 04:00 BMP [Basic Metabolic Panel] AM 0400 Complete Blood Count w/o Diff [HEME] AM 04008/15/17 04:00 BMP [Basic Metabolic Panel] AM 0400 Complete Blood Count w/o Diff [HEME] AM 04008/16/17 04:00 BMP [Basic Metabolic Panel] AM 0400 Complete Blood Count w/o Diff [HEME] AM 0400 08/17/17 04:00 BMP [Basic Metabolic Panel] AM 0400 Complete Blood Count w/o Diff [HEME] AM 0400 Date of Encounter: 08/13/17 Time of Encounter: 13:42 - Discharge Diagnosis (1) Hypertension Priority: Secondary Status: Acute Qualifiers: Hypertension type: essential hypertension Qualified Code(s): I10 - Essential (primary) hypertension (2) CAD (coronary artery disease) Priority: Secondary Status: Acute Qualifiers: Coronary Disease-Associated Artery/Lesion type: [place] artery [place] vs. transplanted heart: [place] heart Associated angina: angina presence unspecified Qualified Code(s): I25.10 - Atherosclerotic heart disease of [place] coronary artery without angina pectoris (3) Non-ST elevated myocardial infarction Priority: Primary Status: Acute (4) COPD (chronic obstructive pulmonary disease) Priority: Secondary Status: Chronic Qualifiers: COPD type: unspecified COPD Qualified Code(s): J44.9 - Chronic obstructive pulmonary disease, unspecified Hospital course: Mr. Villarreal is a 57 year old male past medical hx of CAD S/P PCI HTN tobacco abuse. Presented to [facility] with complaints of chest pain . Has had intermittent CP on exertion over the past week . Pain was relieved with rest. Associated sx of SOB and fatigue over the past 2 weeks Denies any missed doses of brilinta or ASA. Troponin were elevated 0.23 0.37 0.47 0.4 TTE 02/2017 with LVEF 60% mild diastolic dysfunction no segmental wall motion abnormalities. Underwent [facility] - severe one vessel CAD PTCA/MIREYA placed in proximal 1st diagonal - tolerated procedure well, no bleeding from cath site. Cardiology advised follow up as outpatient - cont dual antiplatlet therapy. Discussed with patient and - advised to follow up with cardiology and PCP, advised the importance of dual anitplatlet and not to miss dose . Patient and verbalized understanding He is hemodynamically stable and ready for discharge Discharge discussed with: patient, family - Time Spent with Patient Total time spent providing and/or coordinating discharge services: - Discharge Medications Prescriptions: predniSONE [PredniSONE] 40 mg PO DAILY 2 Days #4 tablet Ticagrelor [Brilinta] 90 mg PO BID #60 tablet Home Medications: Levothyroxine [Synthroid] 175 mcg PO DAILY 02/05/17 [History] Acetaminophen [Tylenol] 650 mg PO Q6HR PRN tablet 02/07/17 [Rx] Aspirin 81 mg PO DAILY tab.chew 02/07/17 [Rx] Metoprolol XL (24 HR) Succ [Toprol Xl] 25 mg PO DAILY #30 tab.er.24h 02/07/17 [ Rx] Nitroglycerin 0.4 mg SL Q5MIN PRN #25 tab.subl 02/07/17 [Rx] Amlodipine Besylate 10 mg PO DAILY 08/11/17 [History] Ranolazine [Ranexa] 500 mg PO BID 08/11/17 [History] Ticagrelor [Brilinta] 90 mg PO BID #60 tablet 08/13/17 [Rx] predniSONE [PredniSONE] 40 mg PO DAILY 2 Days #4 tablet 08/13/17 [Rx] Allergies/Adverse Reactions: 3 Allergy/AdvReac Type Severity Reaction Status Date / Time No Known Allergies Allergy Verified 02/05/17 09:27 Date of admission: 08/11/17 16:38 Primary care physician: Cliff Junior MD Consults: 08/12/17 15:59 Consult to Cardiac Rehabilitation-Phase1 [CONS] Routine Comment: Reason for Consult: post op PCI Call Completed: Yes Discharging clinician: Nya Rueda Anticipated date of discharge: 08/13/17 - Constitutional Vitals: Temp Pulse Resp BP Pulse Ox 99.2 F 78 14 122/79 94 08/13/17 11:20 08/13/17 11:20 08/13/17 11:20 08/13/17 11:20 08/13/17 11:20 General appearance: Present: A&O X 3, morbidly obese, no acute distress, severe distress (Currently having chest pain) - Head Head exam: Present: atraumatic, normocephalic - Eye Eye exam: Present: PERRL, conjuntiva pink, sclera anicteric Pupils: Present: PERRL - Neck Neck exam general surgery: Present: supple, trachea midline. Absent: lymphadenopathy - Respiratory Respiratory exam: Present: CTAB. Absent: accessory muscle use, rales, rhonchi, wheezes - Cardiovascular Cardiovascular exam: Present: RRR, +S1, +S2. Absent: diastolic murmur, gallop, rubs, systolic murmur - GI/Abdominal GI/Abdominal exam: Present: normal bowel sounds, soft, no peritoneal signs. Absent: distended, tenderness - Extremities Exam Extremities exam: Present: warm, radial pulses palpable and symmetrical. Absent : calf tenderness, cyanotic, pedal edema - Neurological Exam Neurological exam: Present: CN II-XII intact, oriented X3, no focal deficits. Absent: pronater drift, facial droop, speech deficit - Skin Skin exam: Present: dry, intact - Patient Status Disposition: Home, Self-Care Condition: Fair - Discharge Instructions Instructions: Myocardial Infarction (DC), Chronic Obstructive Pulmonary Disease (DC) Follow Up With: Cliff Junior MD [Primary Care Provider] - Leslee Dumont [Partnered Physician] - - Diet and Activity Activity: increase activity as tolerated, resume usual activities as tolerated Diet: low fat, low cholesterol, low salt diet
--- NOTE | 2017-08-13 16:43 | Electrocardiograph Report ---
[place] [id number] Test Date: 2017-08-11 Pat Name: Jatin Villarreal Department: 104 Room: 3B55 Gender: M Log Grader: EKP : [id number] Requested By: Mateo Martinez Order Number: [id number] Reading MD: Darshana Galeano Measurements Intervals [place] Rate: 101 P: 66 DE: 132 QRS: -74 QRSD: 94 T: 77 QT: 355 QTc: 413 Interpretive Statements SINUS TACHYCARDIA LEFT ANTERIOR FASCICULAR BLOCK Electronically Signed On 08-13-2017 16:41:53 EDT by Darshana Galeano
== END 2017-08-13 15:35 | disposition home or self-care (01) | DRG 247 ==
LOC: EMEROO 13:19 → 3BNU 13:19
PROVIDERS: ADMIT Nurse Practitioner Family; ATTEND Internal Medicine

== ENCOUNTER 2019-03-06 22:24 | Inpatient (IN) ==
[2019-03-06] MEDS ORDERED: Aspirin 81 MG TAB.CHEW PO ONE (23:07)
[2019-03-06] MEDS ORDERED: Nitroglycerin 1 INCH/GM PACKET TP ONE (23:07)
[2019-03-06 23:20] LABS: Basophils # 0.1 K/mcL (0.0-0.2); Eosinophils # 0.6 K/mcL (0.0-0.6); Eosinophils % 6.2 %; Hematocrit 41.4 % (37.5-50.1); Hemoglobin 14.2 g/dL (12.9-16.9); Immature Granulocytes % 0.5 % (0-4); Lymphocytes # 2.9 K/mcL (0.6-4.6); Lymphocytes % 27.8 %; Mean Corpuscular HGB Conc 34.3 g/dL (31.6-35.5); Mean Corpuscular Hemoglobin 30.2 pg (28.0-33.3); Mean Corpuscular Volume 88.1 fL (83.0-100.0); Monocytes % 9.2 %; Neutrophils # 5.8 K/mcL (1.6-8.9); Platelet Count 307 K/mcL (140-400); Red Cell Distribution Width 13.3 % (11.5-14.5); Segmented Neutrophils % 55.3 %; White Blood Count 10.4 K/mcL (4.3-11.1)
[2019-03-06 23:24] LABS: INR 1.1; Prothrombin Time 12.2 Seconds (9.4-12.1)
[2019-03-06 23:31] LABS: BUN/Creatinine Ratio 17 (6-26); Blood Urea Nitrogen 15 mg/dL (6-20); Calcium 9.4 mg/dL (8.6-10.3); Carbon Dioxide 25 mEq/L (23-29); Chloride 103 mEq/L (98-107); Glucose 110 mg/dL (70-105); Osmolality,Calculated 287 (280-300); Sodium 138 mEq/L (136-145); Troponin I < 0.03 ng/mL (< 0.04); eGFR For African Americans > 60 (> 60); eGFR For Non-African Americans > 60 (> 60)
[2019-03-07] MEDS ORDERED: Naloxone 0.4 MG/ML INJ IVP PRN (02:25)
[2019-03-07] MEDS ORDERED: Nitroglycerin 0.4 MG TAB.SUBL SL PRN (02:25)
[2019-03-07] MEDS ORDERED: 0.9 % Sodium Chloride 1,000 ML IVC SCH (02:30)
[2019-03-07] MEDS ORDERED: Nicotine 2 MG GUM BC PRN (02:34)
[2019-03-07 04:47] LABS: Basophils # 0.1 K/mcL (0.0-0.2); Basophils % 1.2 %; Eosinophils # 0.7 K/mcL (0.0-0.6); Eosinophils % 7.2 %; Hematocrit 40.4 % (37.5-50.1); Hemoglobin 13.7 g/dL (12.9-16.9); Immature Granulocytes % 0.3 % (0-4); Lymphocytes # 2.8 K/mcL (0.6-4.6); Lymphocytes % 30.8 %; Mean Corpuscular HGB Conc 33.9 g/dL (31.6-35.5); Mean Corpuscular Hemoglobin 29.7 pg (28.0-33.3); Mean Corpuscular Volume 87.4 fL (83.0-100.0); Mean Platelet Volume 10.3 fL (9.4-12.4); Monocytes # 0.9 K/mcL (0.0-1.3); Monocytes % 9.7 %; Neutrophils # 4.6 K/mcL (1.6-8.9); Platelet Count 308 K/mcL (140-400); Red Blood Count 4.62 M/mcL (4.19-5.50); Red Cell Distribution Width 13.4 % (11.5-14.5); Segmented Neutrophils % 50.8 %
[2019-03-07 04:48] LABS: Prothrombin Time 11.8 Seconds (9.4-12.1)
[2019-03-07 05:08] LABS: Alanine Aminotransferase 7 Units/L (7-52); Albumin 3.5 g/dL (3.5-5.7); Albumin/Globulin Ratio 1.2 (1.1-2.2); Alkaline Phosphatase 63 Units/L (34-104); Aspartate Amino Transferase 7 Units/L (13-39); BUN/Creatinine Ratio 19 (6-26); Bilirubin,Total 0.3 mg/dL (0.3-1.0); Blood Urea Nitrogen 13 mg/dL (6-20); Calcium 9.5 mg/dL (8.6-10.3); Carbon Dioxide 23 mEq/L (23-29); Chloride 105 mEq/L (98-107); Chol/HDL Ratio 10.7 (0-4.9); Cholesterol 213 mg/dL (< 200); Globulin 2.9 g/dL (2.4-3.5); Glucose 93 mg/dL (70-105); HDL Cholesterol 20 mg/dL (40-59); LDL Cholesterol,Calculated 134 mg/dL (0-99); Magnesium 1.7 mg/dL (1.6-2.6); Osmolality,Calculated 290 (280-300); Phosphorous 4.6 mg/dL (2.7-4.5); Potassium 3.8 mEq/L (3.5-5.1); Sodium 140 mEq/L (136-145); Total Protein 6.4 g/dL (6.4-8.9); Triglycerides 297 mg/dL (< 150); eGFR For African Americans > 60 (> 60); eGFR For Non-African Americans > 60 (> 60)
[2019-03-07] MEDS ORDERED: *HR* Heparin 5,000 UNIT/ML VIAL SQ SCH (06:00)
[2019-03-07] MEDS ORDERED: Regadenoson 0.4 MG/5 ML SYRINGE IVP ONE (06:04)
[2019-03-07 06:05] LABS: Amphetamine Screen,Urine Negative ng/mL (Cutoff=1000); Barbiturate Screen,Urine Negative ng/mL (Cutoff=200); Benzodiazepines Screen,Urine Negative ng/mL (Cutoff=200); Cannabinoid Screen,Urine Negative ng/mL (Cutoff = 50); Cocaine Screen,Urine Negative ng/mL (Cutoff= 300); Opiate Screen,Urine Negative ng/mL (Cutoff=300); Phencyclidine Screen,Urine Negative ng/mL (Cutoff=25)
[2019-03-07] MEDS: Morphine Sulfate 2 MG/ML SYRINGE IVP PRN ×2 (06:31→20:06)
[2019-03-07 06:56] LABS: Bilirubin,Urine Negative (Negative); Blood,Urine Negative (Negative); Clarity,Urine Clear (Clear); Color,Urine Yellow (Yellow); Glucose,Urine (UA) Normal (Normal); Ketones,Urine Negative (Negative); Leukocyte Esterase,Urine Negative (Negative); Nitrite,Urine Negative (Negative); Protein,Urine Negative (Neg-Trace); Urobilinogen,Urine Normal (Normal)
[2019-03-07] MEDS: Nicotine 14 MG PATCH.TD24 TD SCH (08:28)
[2019-03-07] MEDS: Aspirin 81 MG TAB.CHEW PO SCH (08:34)
[2019-03-07] MEDS: Metoprolol XL (24 HR) Succ 25 MG TAB.ER.24H PO SCH (08:34)
[2019-03-07 09:59] LABS: Hemoglobin 13.8 g/dL (12.9-16.9); Mean Corpuscular HGB Conc 32.9 g/dL (31.6-35.5); Mean Corpuscular Hemoglobin 30.1 pg (28.0-33.3); Mean Corpuscular Volume 91.5 fL (83.0-100.0); Mean Platelet Volume 10.1 fL (9.4-12.4); Platelet Count 295 K/mcL (140-400); Red Blood Count 4.59 M/mcL (4.19-5.50); Red Cell Distribution Width 13.3 % (11.5-14.5); White Blood Count 8.3 K/mcL (4.3-11.1)
[2019-03-07 10:01] LABS: Prothrombin Time 11.3 Seconds (9.4-12.1)
[2019-03-07] MEDS: Isosorbide MONOnitrate (24 HR) 30 MG TAB.ER.24H PO SCH (10:24)
[2019-03-07] MEDS: Heparin 25,000 UNIT/250 ML D5W 25,000 UNIT/250 ML IV.SOLN IVC SCH (10:25)
[2019-03-07 12:09] LABS: Estimated Average Glucose 134 mg/dl
[2019-03-07] MEDS ORDERED: *HR* Heparin 5,000 UNIT/ML VIAL IVP PRN (17:18)
[2019-03-08] MEDS: Heparin 25,000 UNIT/250 ML D5W 25,000 UNIT/250 ML IV.SOLN IVC SCH ×2 (06:37→23:07)
[2019-03-08] MEDS: *HR* Heparin 5,000 UNIT/ML VIAL IVP PRN ×2 (07:03→20:57)
[2019-03-08] MEDS: Isosorbide MONOnitrate (24 HR) 30 MG TAB.ER.24H PO SCH (09:01)
[2019-03-08] MEDS: Aspirin 81 MG TAB.CHEW PO SCH (09:01)
[2019-03-08] MEDS: Metoprolol XL (24 HR) Succ 25 MG TAB.ER.24H PO SCH (09:01)
[2019-03-08] MEDS: Nicotine 14 MG PATCH.TD24 TD SCH (09:01)
[2019-03-09 03:32] LABS: Basophils # 0.1 K/mcL (0.0-0.2); Basophils % 1.1 %; Eosinophils # 0.6 K/mcL (0.0-0.6); Eosinophils % 6.4 %; Hemoglobin 13.3 g/dL (12.9-16.9); Immature Granulocytes % 0.2 % (0-4); Lymphocytes # 2.9 K/mcL (0.6-4.6); Mean Corpuscular HGB Conc 33.3 g/dL (31.6-35.5); Mean Corpuscular Hemoglobin 29.8 pg (28.0-33.3); Mean Corpuscular Volume 89.5 fL (83.0-100.0); Mean Platelet Volume 10.2 fL (9.4-12.4); Monocytes # 0.8 K/mcL (0.0-1.3); Monocytes % 9.2 %; Neutrophils # 4.6 K/mcL (1.6-8.9); Platelet Count 288 K/mcL (140-400); Red Blood Count 4.47 M/mcL (4.19-5.50); Red Cell Distribution Width 13.2 % (11.5-14.5); Segmented Neutrophils % 51.1 %
[2019-03-09 03:48] LABS: BUN/Creatinine Ratio 16 (6-26); Blood Urea Nitrogen 12 mg/dL (6-20); Calcium 9.3 mg/dL (8.6-10.3); Carbon Dioxide 24 mEq/L (23-29); Chloride 106 mEq/L (98-107); Glucose 111 mg/dL (70-105); Osmolality,Calculated 284 (280-300); Potassium 3.9 mEq/L (3.5-5.1); Sodium 137 mEq/L (136-145); eGFR For African Americans > 60 (> 60); eGFR For Non-African Americans > 60 (> 60)
[2019-03-09] MEDS: Isosorbide MONOnitrate (24 HR) 30 MG TAB.ER.24H PO SCH (07:42)
[2019-03-09] MEDS: Aspirin 81 MG TAB.CHEW PO SCH (07:42)
[2019-03-09] MEDS: Metoprolol XL (24 HR) Succ 25 MG TAB.ER.24H PO SCH (07:42)
[2019-03-09] MEDS: Nicotine 14 MG PATCH.TD24 TD SCH (07:43)
[2019-03-09] MEDS ORDERED: *HR* Heparin 10,000 UNIT/10 ML VIAL ONE (11:50)
[2019-03-09] MEDS ORDERED: ISOVUE-370 200 ML INFUS..BTL ONE (11:50)
[2019-03-09] MEDS ORDERED: Heparin 1,000 UNITS/500 mL 500 ML ONE (11:50)
[2019-03-09] MEDS ORDERED: 0.9 % Sodium Chloride 2,000 ML ONE (11:50)
[2019-03-09] MEDS ORDERED: Nitroglycerin 1,000 MCG/10 ML VIAL IV ONE (11:50)
[2019-03-09] MEDS ORDERED: *HR* Midazolam HCl 2 MG/2 ML VIAL ONE (11:59)
[2019-03-09] MEDS ORDERED: *HR* FentaNYL (PF) 100 MCG/2 ML VIAL ONE (12:00)
[2019-03-10] MEDS: Heparin 25,000 UNIT/250 ML D5W 25,000 UNIT/250 ML IV.SOLN IVC SCH ×2 (02:01→16:03)
[2019-03-10 03:03] LABS: Hematocrit 41.1 % (37.5-50.1); Hemoglobin 14.2 g/dL (12.9-16.9); Mean Corpuscular HGB Conc 34.5 g/dL (31.6-35.5); Mean Corpuscular Volume 86.9 fL (83.0-100.0); Mean Platelet Volume 10.1 fL (9.4-12.4); Platelet Count 334 K/mcL (140-400); Red Blood Count 4.73 M/mcL (4.19-5.50); Red Cell Distribution Width 13.4 % (11.5-14.5); White Blood Count 9.3 K/mcL (4.3-11.1)
[2019-03-10] MEDS: *HR* Heparin 5,000 UNIT/ML VIAL IVP PRN (03:20)
[2019-03-10 03:21] LABS: BUN/Creatinine Ratio 16 (6-26); Blood Urea Nitrogen 12 mg/dL (6-20); Calcium 9.5 mg/dL (8.6-10.3); Carbon Dioxide 20 mEq/L (23-29); Chloride 103 mEq/L (98-107); Glucose 104 mg/dL (70-105); Osmolality,Calculated 282 (280-300); Potassium 3.9 mEq/L (3.5-5.1); Sodium 136 mEq/L (136-145); eGFR For African Americans > 60 (> 60); eGFR For Non-African Americans > 60 (> 60)
[2019-03-10] MEDS: Isosorbide MONOnitrate (24 HR) 30 MG TAB.ER.24H PO SCH (09:01)
[2019-03-10] MEDS: Metoprolol XL (24 HR) Succ 25 MG TAB.ER.24H PO SCH (09:01)
[2019-03-10] MEDS: Aspirin 81 MG TAB.CHEW PO SCH (09:01)
[2019-03-10] MEDS: Nicotine 14 MG PATCH.TD24 TD SCH (09:02)
[2019-03-11 03:02] LABS: Hematocrit 39.2 % (37.5-50.1); Hemoglobin 13.2 g/dL (12.9-16.9); Mean Corpuscular HGB Conc 33.7 g/dL (31.6-35.5); Mean Corpuscular Hemoglobin 29.4 pg (28.0-33.3); Mean Corpuscular Volume 87.3 fL (83.0-100.0); Mean Platelet Volume 10.2 fL (9.4-12.4); Platelet Count 313 K/mcL (140-400); Red Blood Count 4.49 M/mcL (4.19-5.50); Red Cell Distribution Width 13.5 % (11.5-14.5); White Blood Count 9.3 K/mcL (4.3-11.1)
[2019-03-11 03:21] LABS: BUN/Creatinine Ratio 14 (6-26); Blood Urea Nitrogen 12 mg/dL (6-20); Calcium 9.4 mg/dL (8.6-10.3); Carbon Dioxide 26 mEq/L (23-29); Chloride 102 mEq/L (98-107); Glucose 136 mg/dL (70-105); Osmolality,Calculated 284 (280-300); Potassium 3.8 mEq/L (3.5-5.1); Sodium 136 mEq/L (136-145); eGFR For African Americans > 60 (> 60); eGFR For Non-African Americans > 60 (> 60)
[2019-03-11] MEDS: Heparin 25,000 UNIT/250 ML D5W 25,000 UNIT/250 ML IV.SOLN IVC SCH ×2 (05:37→19:49)
[2019-03-11] MEDS: Metoprolol XL (24 HR) Succ 25 MG TAB.ER.24H PO SCH (09:00)
[2019-03-11] MEDS: Nicotine 14 MG PATCH.TD24 TD SCH (09:00)
[2019-03-11] MEDS: Isosorbide MONOnitrate (24 HR) 30 MG TAB.ER.24H PO SCH (09:00)
[2019-03-11] MEDS: Aspirin 81 MG TAB.CHEW PO SCH (09:00)
[2019-03-11] MEDS ORDERED: Acetaminophen IV 1,000 MG/100 ML INFUS..BTL IVPB ONE (21:41)
[2019-03-12] MEDS: Isosorbide MONOnitrate (24 HR) 30 MG TAB.ER.24H PO SCH (08:56)
[2019-03-12] MEDS: Aspirin 81 MG TAB.CHEW PO SCH (08:56)
[2019-03-12] MEDS: Nicotine 14 MG PATCH.TD24 TD SCH (08:57)
[2019-03-12 10:20] LABS: Basophils # 0.1 K/mcL (0.0-0.2); Basophils % 1.1 %; Eosinophils # 0.6 K/mcL (0.0-0.6); Eosinophils % 7.3 %; Hematocrit 41.4 % (37.5-50.1); Hemoglobin 13.2 g/dL (12.9-16.9); Immature Granulocytes % 0.7 % (0-4); Lymphocytes # 2.3 K/mcL (0.6-4.6); Lymphocytes % 30.2 %; Mean Corpuscular HGB Conc 31.9 g/dL (31.6-35.5); Mean Corpuscular Hemoglobin 29.3 pg (28.0-33.3); Mean Corpuscular Volume 91.8 fL (83.0-100.0); Mean Platelet Volume 10.5 fL (9.4-12.4); Monocytes # 0.5 K/mcL (0.0-1.3); Monocytes % 6.8 %; Neutrophils # 4.1 K/mcL (1.6-8.9); Platelet Count 303 K/mcL (140-400); Red Blood Count 4.51 M/mcL (4.19-5.50); Red Cell Distribution Width 13.5 % (11.5-14.5); Segmented Neutrophils % 53.9 %; White Blood Count 7.5 K/mcL (4.3-11.1)
[2019-03-12 10:29] LABS: BUN/Creatinine Ratio 9 (6-26); Blood Urea Nitrogen 8 mg/dL (6-20); Calcium 9.7 mg/dL (8.6-10.3); Carbon Dioxide 27 mEq/L (23-29); Chloride 102 mEq/L (98-107); Glucose 149 mg/dL (70-105); Osmolality,Calculated 285 (280-300); Sodium 137 mEq/L (136-145); eGFR For African Americans > 60 (> 60); eGFR For Non-African Americans > 60 (> 60)
[2019-03-12] MEDS: Heparin 25,000 UNIT/250 ML D5W 25,000 UNIT/250 ML IV.SOLN IVC SCH (11:44)
[2019-03-12] MEDS: Chlorhexidine Rinse 15 ML MOUTHWASH MM SCH ×2 (16:12→23:48)
[2019-03-13] MEDS: Chlorhexidine Rinse 15 ML MOUTHWASH MM SCH ×3 (00:15→20:00)
[2019-03-13] MEDS: Heparin 25,000 UNIT/250 ML D5W 25,000 UNIT/250 ML IV.SOLN IVC SCH (02:15)
[2019-03-13 02:43] LABS: Basophils # 0.1 K/mcL (0.0-0.2); Basophils % 1.2 %; Eosinophils # 0.5 K/mcL (0.0-0.6); Eosinophils % 5.7 %; Hematocrit 38.8 % (37.5-50.1); Hemoglobin 13.2 g/dL (12.9-16.9); Immature Granulocytes % 0.5 % (0-4); Lymphocytes # 2.4 K/mcL (0.6-4.6); Lymphocytes % 26.6 %; Mean Corpuscular Hemoglobin 29.7 pg (28.0-33.3); Mean Corpuscular Volume 87.2 fL (83.0-100.0); Mean Platelet Volume 10.4 fL (9.4-12.4); Monocytes # 0.9 K/mcL (0.0-1.3); Neutrophils # 5.1 K/mcL (1.6-8.9); Platelet Count 315 K/mcL (140-400); Red Blood Count 4.45 M/mcL (4.19-5.50); Red Cell Distribution Width 13.5 % (11.5-14.5); White Blood Count 9.1 K/mcL (4.3-11.1)
[2019-03-13 02:48] LABS: BUN/Creatinine Ratio 11 (6-26); Blood Urea Nitrogen 9 mg/dL (6-20); Calcium 9.4 mg/dL (8.6-10.3); Carbon Dioxide 24 mEq/L (23-29); Chloride 104 mEq/L (98-107); Glucose 108 mg/dL (70-105); Osmolality,Calculated 283 (280-300); Potassium 3.7 mEq/L (3.5-5.1); Sodium 137 mEq/L (136-145); eGFR For African Americans > 60 (> 60); eGFR For Non-African Americans > 60 (> 60)
[2019-03-13] MEDS: Aspirin 81 MG TAB.CHEW PO SCH (04:45)
[2019-03-13] MEDS: Morphine Sulfate 2 MG/ML SYRINGE IVP PRN (05:56)
[2019-03-13] MEDS ORDERED: Nitroglycerin 25 MG/250 ML INFUS..BTL IVC ONE (06:27)
[2019-03-13] MEDS ORDERED: NiCARdipine 2.5 MG/10 ML Syringe IVPB ONE (06:28)
[2019-03-13] MEDS ORDERED: Famotidine 20 MG/2 ML VIAL ONE (06:33)
[2019-03-13] MEDS ORDERED: *HR* Rocuronium Bromide 50 MG/5 ML VIAL ONE (06:33)
[2019-03-13] MEDS ORDERED: *HR* Midazolam HCl 5 MG/5 ML VIAL IVP ONE (06:33)
[2019-03-13] MEDS ORDERED: *HR* FentaNYL (PF) 1,000 MCG/20 ML VIAL ONE (06:33)
[2019-03-13] MEDS ORDERED: *HR* PHENYLEPHRINE 1,000 MCG/10 ML SYRINGE IVP ONE ×2 (06:33→10:58)
[2019-03-13] MEDS ORDERED: *HR* Etomidate 20 MG/10 ML AMPUL IVP ONE (06:33)
[2019-03-13] MEDS ORDERED: Calcium Gluconate 1,000 MG/10 ML VIAL ONE (06:34)
[2019-03-13] MEDS ORDERED: Protamine Sulfate 250 MG/25 ML VIAL IVP ONE (06:34)
[2019-03-13] MEDS ORDERED: Tranexamic Acid 1,000 MG/10 ML VIAL ONE ×2 (06:34→09:16)
[2019-03-13] MEDS ORDERED: CeFAZolin Syr 2,000MG/20 ML 2,000 MG/20 ML SYRINGE IVPB ONE (07:00)
[2019-03-13] MEDS ORDERED: Dextrose 50 % in Water (Vial) 30 ML, Sodium Bicarbonate 20 MEQ, Potassium Chloride 15 M... TH ONE (07:45)
[2019-03-13] MEDS ORDERED: Heparin 15,000 UNIT in 0.9 % Sodium Chloride 500 ML IV ONE (07:45)
[2019-03-13] MEDS ORDERED: Dextrose 50 % in Water (Vial) 30 ML, Sodium Bicarbonate 20 MEQ, Lidocaine 1% 5 ML, Insu... TH ONE ×3 (07:45)
[2019-03-13] MEDS ORDERED: Insulin Human Regular 100 UNIT in 0.9 % Sodium Chloride 100 ML IV PRN (07:45)
[2019-03-13] MEDS ORDERED: Norepinephrine 4 MG in 0.9 % Sodium Chloride 250 ML IVC PRN (07:45)
[2019-03-13 08:14] LABS: ABG Base Excess 0 mEq/L (-2 to 3); ABG Chloride 104 mEq/L (98-107); ABG Glucose 105 mg/dL (60-95); ABG HCO3 28 mEq/L (21-27); ABG Oxygen Saturation 100 % (95-98); ABG PCO2 56 mmHg (35-45); ABG PO2 234 mmHg (85-104); ABG TCO2 29 mEq/L (20-26)
[2019-03-13 09:15] LABS: ABG Base Excess -2 mEq/L (-2 to 3); ABG Chloride 107 mEq/L (98-107); ABG Glucose 109 mg/dL (60-95); ABG HCO3 23 mEq/L (21-27); ABG Ionized Calcium 1.08 mmol/L (1.15-1.35); ABG Oxygen Saturation 99 % (95-98); ABG PCO2 40 mmHg (35-45); ABG PH 7.38 pH Units (7.32-7.45); ABG PO2 121 mmHg (85-104); ABG TCO2 25 mEq/L (20-26)
[2019-03-13 09:56] LABS: ABG Base Excess 4 mEq/L (-2 to 3); ABG Chloride 100 mEq/L (98-107); ABG Glucose 156 mg/dL (60-95); ABG HCO3 29 mEq/L (21-27); ABG Ionized Calcium 1.03 mmol/L (1.15-1.35); ABG Oxygen Saturation 100 % (95-98); ABG PCO2 41 mmHg (35-45); ABG PH 7.45 pH Units (7.32-7.45); ABG PO2 449 mmHg (85-104); ABG TCO2 30 mEq/L (20-26)
[2019-03-13 10:30] LABS: ABG Base Excess 3 mEq/L (-2 to 3); ABG Chloride 100 mEq/L (98-107); ABG Glucose 158 mg/dL (60-95); ABG HCO3 28 mEq/L (21-27); ABG Ionized Calcium 1.04 mmol/L (1.15-1.35); ABG Oxygen Saturation 100 % (95-98); ABG PCO2 42 mmHg (35-45); ABG PH 7.43 pH Units (7.32-7.45); ABG PO2 394 mmHg (85-104); ABG TCO2 29 mEq/L (20-26)
[2019-03-13 10:43] LABS: ABG Base Excess 5 mEq/L (-2 to 3); ABG Chloride 102 mEq/L (98-107); ABG Glucose 115 mg/dL (60-95); ABG HCO3 31 mEq/L (21-27); ABG Oxygen Saturation 100 % (95-98); ABG PCO2 49 mmHg (35-45); ABG PO2 325 mmHg (85-104); ABG TCO2 32 mEq/L (20-26)
[2019-03-13 11:23] LABS: ABG Base Excess 2 mEq/L (-2 to 3); ABG Chloride 103 mEq/L (98-107); ABG Glucose 70 mg/dL (60-95); ABG HCO3 27 mEq/L (21-27); ABG Ionized Calcium 1.31 mmol/L (1.15-1.35); ABG Oxygen Saturation 98 % (95-98); ABG PCO2 47 mmHg (35-45); ABG PH 7.37 pH Units (7.32-7.45); ABG PO2 116 mmHg (85-104); ABG TCO2 29 mEq/L (20-26)
[2019-03-13] MEDS ORDERED: Potassium Chloride 40 MEQ/200 ML BAG IVPB PRN (11:40)
[2019-03-13] MEDS ORDERED: Insulin Regular, Human 100 UNIT/ML IV PRN (11:40)
[2019-03-13] MEDS ORDERED: Acetaminophen 650 MG RECTAL SUPP RC PRN (11:40)
[2019-03-13] MEDS ORDERED: *HR* OxyCODONE/APAP 5/325 TABLET PO PRN (11:40)
[2019-03-13] MEDS ORDERED: Ondansetron 4 MG/2 ML VIAL IVP PRN (11:40)
[2019-03-13] MEDS ORDERED: *HR* Dextrose 50 % in Water (Syg) 50 ML SYRINGE IVP PRN (11:40)
[2019-03-13] MEDS: Norepinephrine 4 MG in 0.9 % Sodium Chloride 250 ML IVC SCH (11:43)
[2019-03-13] MEDS ORDERED: Milrinone Premix 20 MG/100 ML 20 MG/100 ML BAG IVC SCH (11:45)
[2019-03-13] MEDS ORDERED: Calcium Gluconate 1gm/50mL 1 GM/50 ML BAG IVPB PRN (11:45)
[2019-03-13 12:25] LABS: Basophils # 0.1 K/mcL (0.0-0.2); Basophils % 0.4 %; Eosinophils # 0.4 K/mcL (0.0-0.6); Eosinophils % 2.8 %; Hematocrit 34.3 % (37.5-50.1); Hemoglobin 11.9 g/dL (12.9-16.9); Immature Granulocytes % 0.7 % (0-4); Lymphocytes # 1.6 K/mcL (0.6-4.6); Lymphocytes % 10.6 %; Mean Corpuscular HGB Conc 34.7 g/dL (31.6-35.5); Mean Corpuscular Volume 86.4 fL (83.0-100.0); Mean Platelet Volume 10.1 fL (9.4-12.4); Monocytes # 0.9 K/mcL (0.0-1.3); Monocytes % 5.9 %; Neutrophils # 11.9 K/mcL (1.6-8.9); Platelet Count 203 K/mcL (140-400); Red Blood Count 3.97 M/mcL (4.19-5.50); Red Cell Distribution Width 13.7 % (11.5-14.5); Segmented Neutrophils % 79.6 %
[2019-03-13 12:32] LABS: White Blood Count 14.9 K/mcL (4.3-11.1)
[2019-03-13 12:35] LABS: ABG Base Excess 2 mEq/L (-2 to 3); ABG HCO3 27 mEq/L (21-27); ABG Oxygen Saturation 100 % (95-98); ABG PCO2 46 mmHg (35-45); ABG PH 7.39 pH Units (7.32-7.45); ABG PO2 450 mmHg (85-104); ABG TCO2 29 mEq/L (20-26); Blood Gas VT 600 cc
[2019-03-13 12:35] LABS: INR 1.4; Prothrombin Time 16.2 Seconds (9.4-12.1)
[2019-03-13 12:37] LABS: Activated Partial Thrombo Time 36.4 Seconds (26.0-36.0)
[2019-03-13] MEDS: Nicotine 14 MG PATCH.TD24 TD SCH (12:37)
[2019-03-13] MEDS: Insulin Human Regular 100 UNIT in 0.9 % Sodium Chloride 100 ML IVC SCH ×2 (12:37→16:25)
[2019-03-13] MEDS: niCARdipine 20 MG in 0.9 % Sodium Chloride 192 ML IVC SCH (12:37)
[2019-03-13] MEDS: Nitroglycerin 25 MG/250 ML INFUS..BTL IVC SCH ×2 (12:38→13:00)
[2019-03-13 12:39] LABS: BUN/Creatinine Ratio 10 (6-26); Blood Urea Nitrogen 7 mg/dL (6-20); Calcium 9.6 mg/dL (8.6-10.3); Carbon Dioxide 28 mEq/L (23-29); Chloride 109 mEq/L (98-107); Glucose 73 mg/dL (70-105); Magnesium 2.1 mg/dL (1.6-2.6); Osmolality,Calculated 289 (280-300); Potassium 3.7 mEq/L (3.5-5.1); Sodium 141 mEq/L (136-145); eGFR For African Americans > 60 (> 60); eGFR For Non-African Americans > 60 (> 60)
[2019-03-13] MEDS: Isosorbide MONOnitrate (24 HR) 30 MG TAB.ER.24H PO SCH (12:39)
[2019-03-13] MEDS: Metoclopramide 10 MG/2 ML VIAL IVP SCH ×3 (13:22→23:01)
[2019-03-13] MEDS: Pantoprazole 40 MG VIAL IVP SCH (13:22)
[2019-03-13] MEDS: 0.9 % Sodium Chloride w KCl 20 MEQ/1,000 ML MLS IVC SCH (13:23)
[2019-03-13] MEDS ORDERED: *HR* Phenylephrine 10 MG/ML VIAL IVC ONE (14:12)
[2019-03-13] MEDS ORDERED: Albumin Human 25% 25 GM/100 ML IV.SOLN IV ONE (14:12)
[2019-03-13] MEDS ORDERED: Heparin 1,000 UNITS/500 mL IV.SOLN IVC ONE (14:12)
[2019-03-13] MEDS ORDERED: *HR* Heparin 10,000 UNIT/10 ML VIAL IV ONE (14:12)
[2019-03-13] MEDS ORDERED: Mannitol 25% vial 12.5 GM/50 ML VIAL IVP ONE (14:12)
[2019-03-13] MEDS ORDERED: Tranexamic Acid 1,000 MG/10 ML VIAL IVP ONE (14:12)
[2019-03-13] MEDS ORDERED: D5% in Water 250 ML IV BAG IV ONE (14:12)
[2019-03-13] MEDS ORDERED: *HR* Magnesium Sulfate 2 GM/50 ML PIGGYBACK IVPB ONE (14:12)
[2019-03-13] MEDS ORDERED: Sodium Bicarbonate 50 MEQ/50 ML VIAL IVC ONE (14:12)
[2019-03-13] MEDS ORDERED: Lidocaine 2% Syringe 100 MG/5 ML IV ONE (14:12)
[2019-03-13] MEDS: *HR* FentaNYL (PF) 100 MCG/2 ML VIAL IVP PRN ×3 (14:18→19:28)
[2019-03-13 15:17] LABS: Mixed Venous Blood pCO2 64 mmHg (44-46); Mixed Venous Blood pH 7.24 pH Units (7.34-7.36); Mixed Venous Blood pO2 60 mmHg (35-45)
[2019-03-13 15:25] LABS: Mixed Venous Blood O2 Hgb 86.2 % (60-80)
[2019-03-13 15:39] LABS: ABG Base Excess -1 mEq/L (-2 to 3); ABG HCO3 25 mEq/L (21-27); ABG Oxygen Saturation 94 % (95-98); ABG PCO2 47 mmHg (35-45); ABG PH 7.34 pH Units (7.32-7.45); ABG PO2 76 mmHg (85-104); ABG TCO2 27 mEq/L (20-26); Blood Gas Modality CPAP/PS; Blood Gas Pressure Support 5 cm H2O
[2019-03-13] MEDS ORDERED: Racepinephrine Neb 0.5 ML VIAL IH ONE ×2 (16:40→17:28)
[2019-03-13 16:58] LABS: ABG Base Excess 1 mEq/L (-2 to 3); ABG HCO3 29 mEq/L (21-27); ABG Oxygen Saturation 97 % (95-98); ABG PCO2 61 mmHg (35-45); ABG PH 7.28 pH Units (7.32-7.45); ABG PO2 101 mmHg (85-104); ABG TCO2 31 mEq/L (20-26)
[2019-03-13] MEDS ORDERED: Albuterol 2.5 MG/3 ML NEBULIZER ONE (17:04)
[2019-03-13] MEDS ORDERED: Albuterol 2.5 MG/3 ML NEBULIZER IH ONE (17:29)
[2019-03-13 19:57] LABS: ABG Base Excess 2 mEq/L (-2 to 3); ABG HCO3 28 mEq/L (21-27); ABG Oxygen Saturation 91 % (95-98); ABG PCO2 47 mmHg (35-45); ABG PH 7.38 pH Units (7.32-7.45); ABG PO2 62 mmHg (85-104); ABG TCO2 29 mEq/L (20-26)
[2019-03-14] MEDS: *HR* FentaNYL (PF) 100 MCG/2 ML VIAL IVP PRN ×2 (01:01→08:31)
[2019-03-14 03:16] LABS: Basophils # 0.1 K/mcL (0.0-0.2); Basophils % 0.4 %; Eosinophils % 0.3 %; Hematocrit 30.5 % (37.5-50.1); Hemoglobin 10.5 g/dL (12.9-16.9); Immature Granulocytes % 0.3 % (0-4); Lymphocytes # 1.6 K/mcL (0.6-4.6); Mean Corpuscular HGB Conc 34.4 g/dL (31.6-35.5); Mean Corpuscular Hemoglobin 30.3 pg (28.0-33.3); Mean Corpuscular Volume 88.2 fL (83.0-100.0); Mean Platelet Volume 10.6 fL (9.4-12.4); Monocytes # 1.4 K/mcL (0.0-1.3); Monocytes % 11.7 %; Neutrophils # 8.8 K/mcL (1.6-8.9); Platelet Count 192 K/mcL (140-400); Red Blood Count 3.46 M/mcL (4.19-5.50); Red Cell Distribution Width 14.2 % (11.5-14.5); Segmented Neutrophils % 74.3 %; White Blood Count 11.9 K/mcL (4.3-11.1)
[2019-03-14 03:18] LABS: INR 1.5; Prothrombin Time 16.7 Seconds (9.4-12.1)
[2019-03-14 04:12] LABS: BUN/Creatinine Ratio 10 (6-26); Blood Urea Nitrogen 9 mg/dL (6-20); Calcium 8.7 mg/dL (8.6-10.3); Carbon Dioxide 23 mEq/L (23-29); Chloride 106 mEq/L (98-107); Glucose 148 mg/dL (70-105); Magnesium 1.7 mg/dL (1.6-2.6); Osmolality,Calculated 289 (280-300); Potassium 4.8 mEq/L (3.5-5.1); Sodium 139 mEq/L (136-145); eGFR For African Americans > 60 (> 60); eGFR For Non-African Americans > 60 (> 60)
[2019-03-14] MEDS: Metoclopramide 10 MG/2 ML VIAL IVP SCH ×4 (05:01→23:04)
[2019-03-14] MEDS: Nitroglycerin 25 MG/250 ML INFUS..BTL IVC SCH ×3 (07:22→23:05)
[2019-03-14] MEDS: 0.9 % Sodium Chloride w KCl 20 MEQ/1,000 ML MLS IVC SCH ×2 (07:26→23:05)
[2019-03-14] MEDS: carvediloL 6.25 MG TABLET PO SCH ×2 (07:29→16:48)
[2019-03-14] MEDS: Chlorhexidine Rinse 15 ML MOUTHWASH MM SCH ×2 (07:30→20:12)
[2019-03-14] MEDS: Furosemide 20 MG/2 ML VIAL IVP SCH ×3 (07:31→20:13)
[2019-03-14] MEDS: Pantoprazole 40 MG VIAL IVP SCH (07:31)
[2019-03-14] MEDS: Aspirin Enteric Coated 81 MG Tablet PO SCH (07:31)
[2019-03-14] MEDS: Nicotine 14 MG PATCH.TD24 TD SCH (07:35)
[2019-03-14] MEDS: niCARdipine 20 MG in 0.9 % Sodium Chloride 192 ML IVC SCH (09:51)
[2019-03-14] MEDS: Ketorolac 15 MG/ML VIAL IVP SCH ×4 (10:14→23:04)
[2019-03-14] MEDS: Norepinephrine 4 MG in 0.9 % Sodium Chloride 250 ML IVC SCH (10:53)
[2019-03-14] MEDS ORDERED: D5% in Water 1,000 ML IVC PRN (11:51)
[2019-03-14] MEDS ORDERED: *HR* Dextrose 50 % in Water (Syg) 50 ML SYRINGE IVP PRN (11:51)
[2019-03-14] MEDS ORDERED: Dextrose Gel 15 GM/37.5 ML TUBE PO PRN ×2 (11:51)
[2019-03-14] MEDS: Insulin LISPRO 300 UNITS/3 ML VIAL SQ SCH ×2 (16:44→20:13)
[2019-03-14 18:37] LABS: BUN/Creatinine Ratio 13 (6-26); Blood Urea Nitrogen 13 mg/dL (6-20); Carbon Dioxide 26 mEq/L (23-29); Chloride 100 mEq/L (98-107); Glucose 116 mg/dL (70-105); Osmolality,Calculated 279 (280-300); Potassium 3.7 mEq/L (3.5-5.1); Sodium 134 mEq/L (136-145); eGFR For African Americans > 60 (> 60); eGFR For Non-African Americans > 60 (> 60)
[2019-03-14] MEDS: Acetaminophen 325 MG TABLET PO PRN (20:22)
[2019-03-15] MEDS: Metoclopramide 10 MG/2 ML VIAL IVP SCH ×4 (05:28→23:42)
[2019-03-15] MEDS: Ketorolac 15 MG/ML VIAL IVP SCH ×4 (05:28→23:42)
[2019-03-15] MEDS: carvediloL 6.25 MG TABLET PO SCH ×2 (07:09→15:50)
[2019-03-15] MEDS: Aspirin Enteric Coated 81 MG Tablet PO SCH (07:10)
[2019-03-15] MEDS: Chlorhexidine Rinse 15 ML MOUTHWASH MM SCH ×2 (07:12→19:56)
[2019-03-15] MEDS: Pantoprazole 40 MG VIAL IVP SCH (07:12)
[2019-03-15] MEDS: Furosemide 20 MG/2 ML VIAL IVP SCH ×2 (07:12→19:56)
[2019-03-15] MEDS: Insulin LISPRO 300 UNITS/3 ML VIAL SQ SCH ×4 (07:14→19:57)
[2019-03-15] MEDS: Nicotine 14 MG PATCH.TD24 TD SCH (07:18)
[2019-03-15 07:35] LABS: Basophils % 0.4 %; Eosinophils # 0.5 K/mcL (0.0-0.6); Hematocrit 27.3 % (37.5-50.1); Immature Granulocytes % 0.4 % (0-4); Lymphocytes # 1.8 K/mcL (0.6-4.6); Mean Corpuscular HGB Conc 32.6 g/dL (31.6-35.5); Mean Corpuscular Hemoglobin 30.2 pg (28.0-33.3); Mean Corpuscular Volume 92.5 fL (83.0-100.0); Mean Platelet Volume 10.6 fL (9.4-12.4); Monocytes # 1.4 K/mcL (0.0-1.3); Neutrophils # 7.6 K/mcL (1.6-8.9); Platelet Count 164 K/mcL (140-400); Red Blood Count 2.95 M/mcL (4.19-5.50); Red Cell Distribution Width 14.2 % (11.5-14.5); Segmented Neutrophils % 67.2 %; White Blood Count 11.3 K/mcL (4.3-11.1)
[2019-03-15 07:39] LABS: Hemoglobin 8.9 g/dL (12.9-16.9)
[2019-03-15 07:51] LABS: BUN/Creatinine Ratio 14 (6-26); Blood Urea Nitrogen 14 mg/dL (6-20); Calcium 8.7 mg/dL (8.6-10.3); Carbon Dioxide 28 mEq/L (23-29); Chloride 99 mEq/L (98-107); Glucose 121 mg/dL (70-105); Osmolality,Calculated 282 (280-300); Potassium 3.8 mEq/L (3.5-5.1); Sodium 135 mEq/L (136-145); eGFR For African Americans > 60 (> 60); eGFR For Non-African Americans > 60 (> 60)
[2019-03-15] MEDS ORDERED: *HR* FentaNYL (PF) 100 MCG/2 ML VIAL IVP PRN (09:25)
[2019-03-15] MEDS: niCARdipine 20 MG in 0.9 % Sodium Chloride 192 ML IVC SCH (09:49)
[2019-03-15] MEDS: Norepinephrine 4 MG in 0.9 % Sodium Chloride 250 ML IVC SCH (09:49)
[2019-03-15] MEDS: Nitroglycerin 25 MG/250 ML INFUS..BTL IVC SCH (09:49)
[2019-03-15] MEDS: Acetaminophen 325 MG TABLET PO PRN (20:02)
[2019-03-15] MEDS: 0.9 % Sodium Chloride w KCl 20 MEQ/1,000 ML MLS IVC SCH (23:50)
[2019-03-16] MEDS: Nitroglycerin 25 MG/250 ML INFUS..BTL IVC SCH (00:12)
[2019-03-16] MEDS: Ketorolac 15 MG/ML VIAL IVP SCH (05:27)
[2019-03-16] MEDS: Metoclopramide 10 MG/2 ML VIAL IVP SCH (05:27)
[2019-03-16] MEDS: Pantoprazole 40 MG VIAL IVP SCH (07:54)
[2019-03-16] MEDS: Chlorhexidine Rinse 15 ML MOUTHWASH MM SCH ×2 (07:54→19:40)
[2019-03-16] MEDS: Furosemide 20 MG/2 ML VIAL IVP SCH (07:54)
[2019-03-16] MEDS: carvediloL 6.25 MG TABLET PO SCH (07:54)
[2019-03-16] MEDS: Aspirin Enteric Coated 81 MG Tablet PO SCH (07:54)
[2019-03-16] MEDS: Insulin LISPRO 300 UNITS/3 ML VIAL SQ SCH ×4 (07:56→19:41)
[2019-03-16] MEDS: Nicotine 14 MG PATCH.TD24 TD SCH (07:56)
[2019-03-16] MEDS ORDERED: Nitroglycerin 0.4 MG TAB.SUBL SL PRN (10:19)
[2019-03-16] MEDS ORDERED: D5% in Water 1,000 ML IVC PRN (10:19)
[2019-03-16] MEDS ORDERED: Naloxone 0.4 MG/ML INJ IVP PRN (10:19)
[2019-03-16] MEDS ORDERED: Ondansetron 4 MG/2 ML VIAL IVP PRN (10:19)
[2019-03-16] MEDS ORDERED: Nicotine 2 MG GUM BC PRN (10:19)
[2019-03-16] MEDS ORDERED: Dextrose Gel 15 GM/37.5 ML TUBE PO PRN ×2 (10:19)
[2019-03-16] MEDS ORDERED: *HR* FentaNYL (PF) 100 MCG/2 ML VIAL IVP PRN (10:19)
[2019-03-16] MEDS ORDERED: *HR* Dextrose 50 % in Water (Syg) 50 ML SYRINGE IVP PRN (10:19)
[2019-03-16] MEDS ORDERED: Metoclopramide 10 MG/2 ML VIAL IVP SCH (12:00)
[2019-03-16] MEDS: Acetaminophen 325 MG TABLET PO PRN (19:44)
[2019-03-16] MEDS ORDERED: Acetaminophen 325 MG TABLET PO PRN (21:00)
[2019-03-17 04:44] LABS: Basophils # 0.1 K/mcL (0.0-0.2); Basophils % 0.5 %; Eosinophils # 0.7 K/mcL (0.0-0.6); Eosinophils % 5.8 %; Hemoglobin 9.4 g/dL (12.9-16.9); Immature Granulocytes % 0.4 % (0-4); Lymphocytes # 2.1 K/mcL (0.6-4.6); Lymphocytes % 17.3 %; Mean Corpuscular HGB Conc 34.8 g/dL (31.6-35.5); Mean Corpuscular Hemoglobin 30.3 pg (28.0-33.3); Mean Corpuscular Volume 87.1 fL (83.0-100.0); Mean Platelet Volume 10.3 fL (9.4-12.4); Monocytes % 8.3 %; Neutrophils # 8.1 K/mcL (1.6-8.9); Platelet Count 267 K/mcL (140-400); Segmented Neutrophils % 67.7 %
[2019-03-17 05:00] LABS: BUN/Creatinine Ratio 20 (6-26); Blood Urea Nitrogen 15 mg/dL (6-20); Calcium 8.1 mg/dL (8.6-10.3); Carbon Dioxide 26 mEq/L (23-29); Chloride 103 mEq/L (98-107); Glucose 96 mg/dL (70-105); Osmolality,Calculated 289 (280-300); Potassium 3.2 mEq/L (3.5-5.1); Sodium 139 mEq/L (136-145); eGFR For African Americans > 60 (> 60); eGFR For Non-African Americans > 60 (> 60)
[2019-03-17] MEDS ORDERED: Pantoprazole 40 MG VIAL IVP SCH (09:00)
[2019-03-17] MEDS: Insulin LISPRO 300 UNITS/3 ML VIAL SQ SCH ×4 (09:07→19:09)
[2019-03-17] MEDS: Nicotine 14 MG PATCH.TD24 TD SCH (09:08)
[2019-03-17] MEDS: Chlorhexidine Rinse 15 ML MOUTHWASH MM SCH ×2 (09:09→19:09)
[2019-03-17] MEDS: Aspirin Enteric Coated 81 MG Tablet PO SCH (09:09)
[2019-03-17] MEDS: Acetaminophen 325 MG TABLET PO PRN ×2 (09:23→18:48)
[2019-03-18 04:03] VITALS: BP 121/65
[2019-03-18] MEDS: Chlorhexidine Rinse 15 ML MOUTHWASH MM SCH (07:49)
[2019-03-18] MEDS: Aspirin Enteric Coated 81 MG Tablet PO SCH (07:49)
[2019-03-18] MEDS: Insulin LISPRO 300 UNITS/3 ML VIAL SQ SCH (07:49)
[2019-03-18] MEDS: Nicotine 14 MG PATCH.TD24 TD SCH (07:50)
== END 2019-03-18 10:40 | disposition home or self-care (01) | DRG 165 ==
LOC: EMEROOARM 22:24 → 3BNU 22:24 → SUATTDRO 03-07 00:27 → 3BNU 03-07 00:50 → ICNU 03-13 09:34
PROVIDERS: ADMIT Family Medicine; ATTEND Internal Medicine